=== PATIENT | male | born 1960 | race Caucasian/White ===

== ENCOUNTER 2019-12-23 11:56 | Emergency (ER) | payer OTHER, SELFPAY ==
--- NOTE | ~2019-12-23 | XR_ITS ---
EXAMINATION: XR foot RT min 3V DATE: 12/23/2019 12:54 INDICATION: Right foot pain, initial encounter TECHNIQUE: Dorsoplantar, lateral, and 2 oblique views of the right foot were obtained. COMPARISON: None. FINDINGS: There is an acute, traumatic, likely open, oblique intra-articular fracture at the medial b ase of the first distal phalanx. A small heterotopic ossification is seen dorsal to the distal aspect first proximal phalanx. No definite additional acute osseous abnormality is identified. There is mod erate osteoarthritis of the midfoot and in multiple interphalangeal joints. IMPRESSION: 1. Acute, likely open intra-articular fracture at the base of the first distal phalanx. 2. Possible chip fracture dorsal to the distal aspect of the first proximal phalanx. Reviewed, dictated and finalized at location A. [employer]ODU[employer] SALES REPRESENTATIVE IMPRESSION: 1. Acute, likely open intra-articular fracture at the base of the first distal phalanx. 2. Possible chip fracture dorsal to the distal aspect of the first proximal pha lanx.
--- NOTE | 2019-12-23 12:00 | ED.GENADULT ---
HPI - General Adult General Chief complaint: Extremity Injury, Lower Stated complaint: R TOE INJURY Time Seen by Provider: 12/23/19 12:42 Source: patient Mode of arrival: ambulatory Limitations: no limitations History of Present Illness HPI narrative: 59-year-old male patient presents to the [facility] with complaints of right toe pain for the past month. Patient states that he did hit his right great toe about a month ago when he was wearing slides thinks he might of broken it at that time but states that he does not have very good feeling to his feet and has not had any pain. Patient states this past weekend is gotten red as well as swollen. But continues not to have any pain. Denies taking anything for his symptoms. Patient does have history of hypertension which she is treated for but denies being treated for any hyperglycemia. Related Data Allergies Allergy/AdvReac Type Severity Reaction Status Date / Time No Known Allergies Allergy Verified 12/23/19 12:25 Review of Systems Review of Systems: Narrative: CONSTITUTIONAL: Denies fever, chills, or sweats. EYES: Denies visual changes, redness, or discharge. ENT: Denies rhinorrhea, congestion, sore throat, or otalgia. CARDIOVASCULAR: Denies chest pain, palpitations, or edema. RESPIRATORY: Denies cough or dyspnea. GASTROINTESTINAL: Denies abdominal pain, nausea, vomiting, or diarrhea. GENITOURINARY: Denies dysuria or hematuria. SKIN: Denies rash or itching. MUSCULOSKELETAL: Denies back pain, joint pain, or myalgia. Positive swelling and redness to right great toe x1 week NEUROLOGIC: Denies headache, numbness, or weakness. PSYCHIATRIC: Denies anxiety or depression. [facility] Past Medical History Medical History (Updated 12/23/19 @ 13:25 by WICHO Douglass) Hypertension Neuropathy Family History Family History Father Family history of lymphoma, Onset Age: 35 Other Family history of glaucoma Family history of hypercholesterolemia Hypertension Social History Social History Smoking status: Never smoker Alcohol intake: never Comments 9 pounds Exam Narrative: Exam Narrative: GENERAL: Well-appearing, well-nourished, and in no acute distress. HEAD: Normocephalic, atraumatic. EYES: PERRLA and EOMI. ENT: Nares clear, no rhinorrhea or epistaxis. Mucous membranes moist. NECK: Supple. No lymphadenopathy CHEST: Clear to auscultation. No respiratory distress. HEART: Regular rate and rhythm. No murmur heard. Normal peripheral pulses. ABDOMEN: Soft, nontender, nondistended, normal active bowel sounds. EXTREMITIES: Patient able to bear weight and ambulate without pain. Patient does have significant swelling to the right great toe with erythema present it does appear that there is some erythema to the distal portion of the second toe with some swelling. The R foot is without obvious asymmetry or deformity when compared to the L foot. No bony step-off, nontender to palpation over the toes, midfoot or hindfoot or sole. Normal plantar/dorsiflexion, inversion/eversion. Distal motor and neurovascular status are intact SKIN: Warm, dry, no rash. NEURO: No focal deficits. Alert and oriented x3. Course Reevaluation(s) Reevaluation #1: Reevaluated patient after x-ray resulted. Discussed with him that he does have 2 separate fractures to that great toe. Discussed with him that it does not appear that it is healing well and therefore we are going to refer him to orthopedic surgery. Discussed with patient we will go ahead and put him in an Ortho shoe and I am also going to prescribe him some antibiotics to decrease risk of worsening infection especially since he is now having swelling and redness to the area. Discussed with him he will need to call the orthopedic surgery office on Wednesday to schedule appointment for follow-up. Patient verbalized understanding rafiq
[2019-12-23 12:21] VITALS: BP 191/82; PULSE 73; RESP 16; TEMP 36.5; O2SAT 97
== END 2019-12-23 13:45 | disposition home or self-care (01) ==
PROVIDERS: Emergency Provider Nurse Practitioner Family; PCP Family Medicine
DX: S92.414A Nondisplaced fracture of proximal phalanx of right great toe, initial encounter for closed fracture (principal); X58.XXXA Exposure to other specified factors, initial encounter; I10 Essential (primary) hypertension; G62.9 Polyneuropathy, unspecified
CPT/HCPCS: 73630; 99214; G0463

== ENCOUNTER 2023-01-24 08:20 | Emergency (ER) | payer OTHER, SELFPAY ==
--- NOTE | ~2023-01-24 | XR_ITS ---
EXAMINATION: XR ankle RT min 3V INDICATION: Right ankle pain TECHNIQUE: Four views of the right ankle are obtained. COMPARISON: None available FINDINGS: There is an oblique, nondisplaced fracture of the distal tibia extending to the tibiotalar joint. No additional fracture is identified. There is soft tissue swelling of ankle. There is moderat e osteoarthritis of the midfoot. IMPRESSION: 1. Oblique nondisplaced fracture of the distal tibia extending to the tibiotalar joint. Reviewed, dictated and finalized at location F. PROJECT MANAGER IMPRESSION: 1. Oblique nondisplaced fracture of the distal tibia extending to the tibiotala r joint.
[2023-01-24 08:26] VITALS: BP 143/84; PULSE 86; RESP 16; TEMP 36.6; O2SAT 97
--- NOTE | 2023-01-24 08:57 | ED.LOWEXIN ---
HPI - Extremity Injury (Lower) General Chief Complaint: Extremity Injury, Lower Stated Complaint: Sprained Ankle Time Seen by Provider: 01/24/23 08:42 Source: patient and RN notes reviewed Mode of arrival: ambulatory Limitations: no limitations History of Present Illness HPI Narrative: Patient presents today complaining of an injury to his right ankle that was sustained approximately 3 weeks ago when he misstepped on to a retaining wall. States he has not had much pain since the injury until yesterday when he was walking through [employer]. Pain yesterday was a 7/10, but today he rates his pain 2/10. Patient has significant idiopathic neuropathy of his ankles and feet. He has been taking ibuprofen with some relief. Related Data Allergies Allergy/AdvReac Type Severity Reaction Status Date / Time No Known Allergies Allergy Verified 12/04/22 15:14 Review of Systems Review of Systems: CONSTITUTIONAL: Denies body aches, fever, chills, or sweats. EYES: Denies visual changes, redness, or discharge. ENT: Denies rhinorrhea, congestion, sore throat, or otalgia. CARDIOVASCULAR: Denies chest pain, palpitations, or edema. RESPIRATORY: Denies cough or dyspnea. GASTROINTESTINAL: Denies abdominal pain, nausea, vomiting, or diarrhea. GENITOURINARY: Denies dysuria or hematuria. SKIN: Denies rash, itching, or wounds. MUSCULOSKELETAL: Denies back pain, myalgia.+ right ankle pain and swelling NEUROLOGIC: Denies headache, numbness, tingling, or weakness. PSYCH: Denies depression or anxiety. [facility] Past Medical History Medical History Diarrhea Erectile dysfunction Hammertoe of right foot Right 4th toe Hypertension Mixed hyperlipidemia Nausea & vomiting Neuropathy Peripheral neuropathy, idiopathic Prediabetes Seasonal allergies Toe ulcer, right Family History Family History Father Family history of lymphoma, Onset Age: 35 Other Family history of glaucoma Family history of hypercholesterolemia Hypertension Social History Social History Smoking status: Never smoker Alcohol intake: never Lack of Transportation: No Lack of Food: Never True Current Housing: I Have Housing Concerned About Future Housing: No Difficulty Paying Gas/Electric Bills: No Difficulty Paying for Meds: No Currently Unemployed: No Education: Master's Degree or Higher Difficulty w/ Childcare or Family Care: No Comments At time of signature, I have reviewed and agree with nursing past medical, surgical, social and family history unless otherwise noted. Please see nursing chart for further information. There is no relevant family history pertinent to the presenting complaint Exam Narrative: GENERAL: Well-appearing, well-nourished, and in no acute distress. HEAD: Normocephalic, atraumatic. EYES: EOMI. No redness or drainage. Conjunctivae normal. ENT: Mucous membranes pink and moist. NECK: Normal AROM. CHEST: No respiratory distress. EXTREMITIES: Right ankle: Mild to moderate swelling about the ankle. Patient has significant numbness of the foot and ankle, but can feel some pressure to the lateral malleolus and Achilles tendon, but no tenderness. Capillary refill normal. Pedal pulse normal. Full range of motion of the toes and ankle without pain. Color normal. SKIN: Warm, dry, no rash. Capillary refill normal. Normal skin turgor. NEURO: No focal deficits. Alert and oriented x3. Gait steady. PSYCH: Normal affect. No signs of depression or anxiety. Course Course Level of Care: Express Care Visit Vital Signs Vital signs: Vital Signs Temperature 97.8 F 01/24/23 08:26 Pulse Rate 86 01/24/23 08:26 Respiratory Rate 16 01/24/23 08:26 Blood Pressure 143/84 H 01/24/23 08:26 Pulse Oximetry 97 01/24/23 08:2
== END 2023-01-24 09:24 | disposition home or self-care (01) ==
PROVIDERS: Emergency Provider Nurse Practitioner; PCP Family Medicine
DX: S82.234A Nondisplaced oblique fracture of shaft of right tibia, initial encounter for closed fracture (principal); X50.9XXA Other and unspecified overexertion or strenuous movements or postures, initial encounter; I10 Essential (primary) hypertension; E78.2 Mixed hyperlipidemia; G60.9 Hereditary and idiopathic neuropathy, unspecified; R73.03 Prediabetes
CPT/HCPCS: 29515; 73610; 99214; G0463

== ENCOUNTER 2023-02-10 20:48 | Inpatient (IN) | payer OTHER, SELFPAY ==
[2023-02-10] VITALS (10 sets, daily range): BP systolic 99–111; BP diastolic 51–59; PULSE 72–89; RESP 16–20; TEMP 36.4; O2SAT 96–98
--- NOTE | ~2023-02-10 | CT_ITS ---
EXAMINATION: CT ankle RT wo con DATE: 02/11/2023 02:50 INDICATION: Right ankle wound. TECHNIQUE: Computed tomography (CT) of the right ankle was performed without intravenous contrast. Au tomated exposure control and iterative reconstruction technique were employed. The dose-length produc t was 460.26 mGy-cm. COMPARISON: Right ankle radiographs 02/10/2023 FINDINGS: There is a comminuted fracture of distal tibia with impaction. There is splaying of fractur e fragments at the tibial plafond. Nonbridging callus formation is noted. There are impaction fractur e deformities of the talar dome. There is mild osteoarthritis of many of the midfoot joints. There is severe osteoarthritis of medial naviculocuneiform joint. There are dystrophic calcifications around the ankle. There is some areas of soft tissue gas anteriorly and posteriorly. There is widespread sub cutaneous edema. IMPRESSION: 1. Displaced comminuted fracture of distal tibia. 2. Impaction fracture deformities of the talar dome. 3. Foci of soft tissue gas anteriorly and posteriorly. These findings could have been introduced thro ugh a skin defect. Correlate with physical exam. Correlate clinically for necrotizing fasciitis. I di scussed this finding with Dr. Leach. Reviewed, dictated and finalized at location E. TRONICS TESTER IMPRESSION: 1. Displaced comminuted fracture of distal tibia. 2. Impaction fracture deformities of the talar dome. 3. Foci of soft tissue gas anteriorly and posteriorly. These findings could hav e been introduced through a skin defect. Correlate with physical exam. Correlat e clinically for necrotizing fasciitis. I discussed this finding with Dr. Anny carrizales.
--- NOTE | ~2023-02-10 | XR_ITS ---
EXAM: XR ankle RT min 3V DATE: 02/10/2023 23:48 HISTORY: wound to lateral malleoli, recent fx . COMPARISON: 01/24/2023. FINDINGS: Comminuted distal tibial fracture with significant displacement of the dominant anterior a nd posterior fragments, articular surface disruption, and impaction. The oblique anterior tibial comp onent was noted previously, but is more displaced. The posterior component appears to have occurred i n the interval. Widening of the syndesmosis. Scattered dystrophic calcification in the lateral gutter and lateral to the lateral malleolus. Soft tissue defect over the lateral malleolus. Soft tissue swe lling about the ankle. Scattered foci of subcutaneous gas. IMPRESSION: Comminuted, impacted, distal right tibial fracture involving the tibial plafond, with significant art icular surface disruption (high-grade Pilon fracture). Soft tissue defect over the lateral malleolus, with scattered areas of subcutaneous gas raising drew rn for cellulitis and/or an open type fracture. No definite radiographic evidence of osteomyelitis. Reviewed, dictated and finalized at location K. [employer] SERV[employer] CORRESPONDENCE CLERK IMPRESSION: Comminuted, impacted, distal right tibial fracture involving the tibial plafond , with significant articular surface disruption (high-grade Pilon fracture). Soft tissue defect over the lateral malleolus, with scattered areas of subcutan eous gas raising concern for cellulitis and/or an open type fracture. No defini te radiographic evidence of osteomyelitis.
--- NOTE | 2023-02-10 21:12 | ECG_ITS ---
Measurements Intervals [place] Rate: 72 P: 5 AR: 174 QRS: -18 QRSD: 102 T: 26 QT: 337 QTc: 369 Interpretive Statements SINUS RHYTHM WITH SINUS ARRHYTHMIA LOW QRS VOLTAGE IN PRECORDIAL LEADS [QRS DEFLECTION < 1.0 mV IN CHEST LEADS] NO PREVIOUS ECG AVAILABLE FOR COMPARISON Electronically Signed On 02-11-2023 9:13:05 [employer]OVING CARRIER by Arthur Gonzalez M.D.
[2023-02-10 21:33] LABS: Basophils Percent Auto 0.2 % (0.2-1.2); Eosinophils Percent Auto 0.3 % (0-4.4); Hematocrit 32.7 % (42.0-52.0); Hemoglobin 10.8 g/dL (14.0-18.0); Immature Granulocyte Absolute 0.14 K/mm3 (0.00-0.031); Lymphocytes Absolute Auto 0.74 K/mm3 (0.9-3.2); Lymphocytes Percent Auto 5.4 % (18.3-44.2); Mean Corpuscular Hemoglobin 29.7 pg (26-34); Mean Corpuscular Volume 89.8 fl (80-100); Mean Platelet Volume 9.7 fl (7.4-10.4); Monocytes Absolute Auto 0.9 K/mm3 (0.1-0.6); Monocytes Percent Auto 6.2 % (2.6-8.5); Neutrophils Percent Auto 86.9 % (45.5-73.1); Platelet Count Result 303 k/mm3 (150-375); Red Blood Count 3.64 M/mm3 (4.6-6.20); Red Cell Distribution Width 14.1 % (11.5-14.5); White Blood Count 13.8 K/mm3 (4.5-10.0)
[2023-02-10 21:51] LABS: Alanine Aminotransferase 20 U/L (6-50); Alkaline Phosphatase 111 U/L (38-126); Anion Gap 15 mmol/L (8-16); Aspartate Amino Transferase 21 U/L (17-59); Bilirubin,Total 0.6 mg/dL (0.2-1.3); Blood Urea Nitrogen > 120 mg/dL (9-20); Calcium 11.4 mg/dL (8.4-10.2); Carbon Dioxide 13 mmol/L (22-30); Chloride 100 mmol/L (98-107); Estimated Glomerular Filt Rate 13; Glucose 188 mg/dL (65-110); Potassium 7.1 mmol/L (3.4-5.0); Sodium 128 mmol/L (137-145)
[2023-02-10 22:15] LABS: Erythrocyte Sedimentation Rate > 140 mm/hr (0-20)
[2023-02-10] MEDS: CALCIUM GLUC 1,000 MG/NS 50 ML 1,000 MG/50 ML BAG 100 MG IVPB (23:47)
[2023-02-10] MEDS: SODIUM ZIRCONIUM CYCLOSILICATE 10 GM POWD.PACK PO (23:50)
[2023-02-10 23:56] LABS: Magnesium 2.5 mg/dL (1.6-2.3)
[2023-02-10 23:58] LABS: Hemoglobin A1C 7.3 % (<5.7)
[2023-02-11] VITALS (57 sets, daily range): BP systolic 90–121; BP diastolic 33–82; PULSE 65–96; RESP 11–20; TEMP 36.1–36.3; O2SAT 92–100; BMI 39.5
[2023-02-11] MEDS: INSULIN HUMAN REGULAR (*BKC) 100 UNITS/ML 10 UNITS IV PUSH ×2 (00:11→03:40)
[2023-02-11] MEDS: SODIUM BICARBONATE 8.4% 50 MEQ/50 ML SYRINGE IV PUSH (00:12)
[2023-02-11] MEDS: SODIUM CHLORIDE 0.9% IV 1,000 ML 999 ML IV CONT ×3 (00:14→16:03)
[2023-02-11 00:20] LABS: CRP 41.6 mg/dL (<1.0)
[2023-02-11 00:23] LABS: Alveolar/Arterial O2 Gradient 12.8 mmHg; Base Excess ABG -8.3 mEq/l (+/-2.0); Carboxyhemoglobin 0.3 % THb (0-2.0); Fractional Inspired Oxygen 21 %; HCO3 ABG 15.2 mEq/l (22.0-26.0); Methemoglobin ABG 0.3 %THb (0-1.5); Oxygen Content ABG 14.6 %vol (16.0-22.0); Oxyhemoglobin 96.5 % THb (90.0-100.0); PCO2 ABG 25.2 mmHg (35.0-45.0); PO2 ABG 106.8 mmHg (80.0-100.0); PO2 FiO2 Ratio Arterial Blood 5.09 %; Reduced Hemoglobin 2.9 %THb (0-5.0); Site Drawn RIGHT BRACHIAL; Total Hemoglobin 10.6 g/dL (12.0-18.0); pH ABG 7.397 (7.350-7.450)
[2023-02-11 00:24] LABS: Device ROOM AIR
[2023-02-11] MEDS: CEFEPIME 2 GM/NS 50 ML 2 GM/50 ML BAG IVPB (00:36)
--- NOTE | 2023-02-11 00:36 | ED.LOWEXIN ---
HPI - Extremity Injury (Lower) General Chief Complaint: Extremity Injury, Lower Stated Complaint: R. leg pain Time Seen by Provider: 02/10/23 23:01 Source: patient and old records reviewed Mode of arrival: ambulatory Limitations: no limitations History of Present Illness HPI Narrative: Patient is a 62-year-old male who presents to the ED with concern for right ankle wound. Patient reports he fractured his ankle before and was seen by Dr. Lopes this month. He has been wearing an ankle walking boot. Surgical repair was declined per records. Patient states he began noticing a wound to his right lateral malleolus on Wednesday from where the boot was rubbing against his skin. He has been bandaging this. Tonight when went to change bandage, she noticed purulent drainage from the wound. Then prompted here for further evaluation. Patient is a diabetic. Patient denies recent fevers. He does admit that he has not been feeling well over the last several days. Had an episode of emesis after eating dinner on Wednesday and states he is not ate or drank much since then. States he has been laying in bed most of the day. C/o mild dizziness/lightheadedness. Denies current nausea. Denies abdominal pain. Denies recent cough or cold symptoms. Related Data Allergies Allergy/AdvReac Type Severity Reaction Status Date / Time No Known Allergies Allergy Verified 02/10/23 21:06 Review of Systems Review of Systems: CONSTITUTIONAL: Denies fever, chills, or sweats. CARDIOVASCULAR: Denies chest pain. RESPIRATORY: Denies dyspnea. GASTROINTESTINAL: See HPI SKIN: See HPI MUSCULOSKELETAL: See HPI NEUROLOGIC: See HPI All systems reviewed & are unremarkable except as noted in HPI and below PMFSH Past Medical History Medical History Closed right ankle fracture Diarrhea Erectile dysfunction Hammertoe of right foot Right 4th toe HTN (hypertension), benign Hypertension Mixed hyperlipidemia Nausea & vomiting Neuropathy Obesity Peripheral neuropathy, idiopathic Pilon fracture of right tibia Prediabetes Seasonal allergies Toe ulcer, right Family History Family History Father Family history of lymphoma, Onset Age: 35 Other Family history of glaucoma Family history of hypercholesterolemia Hypertension Social History Social History Smoking status: Never smoker Alcohol intake: never Lack of Transportation: No Lack of Food: Never True Current Housing: I Have Housing Concerned About Future Housing: No Difficulty Paying Gas/Electric Bills: No Difficulty Paying for Meds: No Currently Unemployed: No Education: Master's Degree or Higher Difficulty w/ Childcare or Family Care: No Exam Narrative: GENERAL: Mildly ill appearing, obese, non-toxic, in no acute distress. HEAD: Normocephalic, atraumatic. ENT: MMs dry. RESPIRATORY: Airway patent, respirations nonlabored. Clear to auscultation bilaterally, no rales, rhonchi, wheezing. CARDIOVASCULAR: Regular rate and rhythm without murmurs, rubs, or gallops. Difficult to palpate DP pulse on R, able to identify with bedside Doppler. MUSCULOSKELETAL: Limited ROM of R ankle d/t pain. R ankle joint diffusely swollen extending into lower leg, mildly erythematous vs ecchymotic, slightly warm. Large ulcer-like wound to R lateral malleoli with serous yellow malodorous material draining. No definitive abscess. No palpable fluctuance. No bullae or blistering. Decreased sensation throughout right foot, which patient reports is chronic related to neuropathy. SKIN: Warm, dry, normal color. NEURO: A&O X3. Speech clear. Cranial nerves II-XII grossly intact. No ataxic movements. PSYCHIATRIC: Normal mood/affect. Normal interaction. Course Vital Signs Vital signs: Vital Signs
[2023-02-11 00:38] LABS: Estimated Glomerular Filt Rate 12
[2023-02-11 01:01] LABS: Influenza A QL RT-PCR Negative (Negative); Influenza B QL RT-PCR Negative (Negative); RSV RNA, RT-PCR Negative (Negative); SARS-CoV-2 RNA PCR Negative (Negative)
[2023-02-11] MEDS: metroNIDAZOLE 500 MG/ISO 100ML 500 MG/100 ML BAG 100 MG IVPB ×3 (01:14→14:13)
--- NOTE | 2023-02-11 01:26 | PC.NURSE ---
1 unit of insulin not given. Override due to incorrect medication in the incorrect location in the pyxis.
[2023-02-11 01:58] LABS: Glucose Point of Care 146 mg/dl (65-105)
[2023-02-11 02:22] LABS: Anion Gap 13 mmol/L (8-16); Blood Urea Nitrogen > 120 mg/dL (9-20); Calcium 10.8 mg/dL (8.4-10.2); Carbon Dioxide 13 mmol/L (22-30); Chloride 104 mmol/L (98-107); Estimated Glomerular Filt Rate 11; Glucose 154 mg/dL (65-110); Potassium 6.2 mmol/L (3.4-5.0); Sodium 130 mmol/L (137-145)
[2023-02-11] MEDS: SODIUM BICARBONATE 8.4% 150 MEQ in WATER, STERILE FOR INJECTION 950 ML 100 MEQ IV CONT ×2 (03:35→16:20)
[2023-02-11] MEDS: DEXTROSE 50% 25 GM/50 ML SYRINGE IV PUSH ×2 (03:38)
[2023-02-11] MEDS: CALCIUM GLUCONATE 1,000 MG/10 ML VIAL 1000 MG IV PUSH (03:41)
[2023-02-11] MEDS: SODIUM ZIRCONIUM CYCLOSILICATE 10 GM POWD.PACK PO ×2 (03:41→17:24)
[2023-02-11] MEDS: VANCOMYCIN 2,000 MG/NS 500 ML 2,000 MG/500 ML BAG 250 MG IVPB (03:48)
[2023-02-11 04:17] LABS: Glucose Point of Care 209 mg/dl (65-105)
[2023-02-11 07:07] LABS: Basophils Percent Auto 0.2 % (0.2-1.2); Eosinophils Absolute Auto 0.1 K/mm3 (0-0.3); Eosinophils Percent Auto 0.9 % (0-4.4); Hematocrit 29.1 % (42.0-52.0); Hemoglobin 9.1 g/dL (14.0-18.0); Immature Granulocyte Absolute 0.13 K/mm3 (0.00-0.031); Immature Granulocyte Percent A 1.1 % (0-0.5); Lymphocytes Absolute Auto 0.98 K/mm3 (0.9-3.2); Lymphocytes Percent Auto 8.3 % (18.3-44.2); Mean Corpuscular HGB Conc 31.3 g/dl (32-36); Mean Corpuscular Hemoglobin 29.6 pg (26-34); Mean Corpuscular Volume 94.8 fl (80-100); Mean Platelet Volume 9.8 fl (7.4-10.4); Monocytes Absolute Auto 1.1 K/mm3 (0.1-0.6); Monocytes Percent Auto 8.9 % (2.6-8.5); Neutrophils Absolute Auto 9.5 K/mm3 (1.3-6.7); Neutrophils Percent Auto 80.6 % (45.5-73.1); Platelet Count Result 242 k/mm3 (150-375); Red Blood Count 3.07 M/mm3 (4.6-6.20); Red Cell Distribution Width 14.3 % (11.5-14.5); White Blood Count 11.8 K/mm3 (4.5-10.0)
[2023-02-11 07:30] LABS: Alanine Aminotransferase 17 U/L (6-50); Albumin Level 3.3 g/dL (3.5-5.1); Alkaline Phosphatase 88 U/L (38-126); Anion Gap 15 mmol/L (8-16); Aspartate Amino Transferase 23 U/L (17-59); Bilirubin,Total 0.5 mg/dL (0.2-1.3); Calcium 10.4 mg/dL (8.4-10.2); Carbon Dioxide 10 mmol/L (22-30); Chloride 105 mmol/L (98-107); Estimated CRCL calculation 21 ml/min; Estimated Glomerular Filt Rate 13; Glucose 142 mg/dL (65-110); Magnesium 2.3 mg/dL (1.6-2.3); Phosphorus 7.3 mg/dL (2.5-4.5); Potassium 5.7 mmol/L (3.4-5.0); Sodium 130 mmol/L (137-145)
[2023-02-11 08:20] LABS: Procalcitonin 2.6 ng/mL
--- NOTE | 2023-02-11 09:00 | ADMGEN ---
This patient, Mk Kaba Jr., was admitted to IMU Room 214-01. Patient/family oriented to hospital policies and general routines including ID bracelet, bed and alarms, visiting hours, pain management, procedures, bathroom and other care routines, personal items, smoking policy, room service/diet, and visiting hours. Information on how to activate the Rapid Response Team has been discussed. Patient/Family are encouraged to report perceived risks to care and to ask questions if they do not understand what they are told or what they should do.
[2023-02-11 10:02] LABS: Blood Urea Nitrogen 136 mg/dL (9-20)
--- NOTE | 2023-02-11 11:56 | PCWOUND ---
WOCN NOTE Received consult to assess wound on right ankle. Orthopedic surgeon also consulted for same wound. Spoke with Ellen SANDS for Dr. Lopes who was involved in case initially. Received direction to hold off on consult, they will notify wound care if wound care assessment is needed.
--- NOTE | 2023-02-11 12:03 | PM.CNNEP ---
Assessment and Plan Assessment and plan (1) Acute renal failure: Qualifiers: Acute renal failure type: unspecified Qualified Code(s): N17.9 - Acute kidney failure, unspecified Code(s): N17.9 - Acute kidney failure, unspecified Status: Acute Assessment and Plan: The patient has acute kidney injury. His creatinine was normal before this. He had normal urine microalbumin in November. Most likely patient's kidney injury is due to hypotension, infection, ibuprofen and dehydration. He did continue to take his medications there are other things that could cause this as well. Glomerulonephritis, interstitial nephritis are possibilities but not likely in this clinical scenario. Rhabdomyolysis is always a possibility as is obstruction. will check urine electrolytes, CPK, and renal ultrasound. Will continue with the IV fluids ordered. (2) Hyperkalemia: Code(s): E87.5 - Hyperkalemia Status: Acute Assessment and Plan: the patient's potassium was high. this is due to the renal failure, ibuprofen, and lisinopril. He is off those to medication and he is getting medication to bring the potassium down. (3) Open wound of right ankle: Qualifiers: Encounter type: initial encounter Qualified Code(s): S91.001A - Unspecified open wound, right ankle, initial encounter Code(s): S91.001A - Unspecified open wound, right ankle, initial encounter Status: Acute Assessment and Plan: Ortho will be consulted. Blood cultures are done. He is getting antibiotics. (4) Hyponatremia: Code(s): E87.1 - Hypo-osmolality and hyponatremia Status: Acute Assessment and Plan: The patient has low sodium. Is most likely due to the renal failure. It was normal before all of this. (5) Prediabetes: Code(s): R73.03 - Prediabetes Status: Acute Assessment and Plan: The patient was on metformin. Likely is lactic acid is okay (6) HTN (hypertension), benign: Code(s): I10 - Essential (primary) hypertension Status: Acute Assessment and Plan: blood pressure has been high for a long time. He got dehydrated now has low blood pressure so his antihypertensives are on hold. (7) Mixed hyperlipidemia: Code(s): E78.2 - Mixed hyperlipidemia Status: Acute Assessment and Plan: He is on a tore the statin home (8) Metabolic acidosis: Code(s): E87.20 - Acidosis, unspecified Status: Acute Assessment and Plan: the patient has metabolic acidosis. His anion gap is 15. This is probably a little high for him. Most likely the anion gap is due to uremic toxins. He is a getting bicarb drip for this. History of Present Illness Reason for Consult Consult date: 02/11/23 Chief Complaint Chief complaint: ARF,Hyperkalemia,Hyponatremis,DM Ulcer R Ankle,FX History of Present Illness Narrative: Emir is a very pleasant 62-year-old male who has multiple medical problems including pre diabetes, hypertension, hyperlipidemia, high body mass index, seasonal allergies, and hammertoe of the right 4th toe. The patient said that he stumbled and broke his ankle. He went to see Dr. Lopes. He was offered surgery but elected to be conservative and so he was placed in a boot. The patient has neuropathy and so has no feeling in his foot and eventually the boot rubbed a sore. He was dressing this sore daily. Last Wednesday the patient had chills and some nausea and vomiting. Wednesday and Wednesday he was sleepy all day and did not eat much. Wednesday his asked to look at the wound. At he said no but then he agreed and there was pus there so brought him to the emergency room. Patient has never had kidney disease before. No bloody urine foamy urine kidney stones bladder infections or painful urine. He was taking ibuprofen every 4hours as needed for his ankle. In the ER he was evalu
[2023-02-11 12:40] LABS: Creatine Kinase 66 U/L (55-170)
--- NOTE | 2023-02-11 13:13 | PM.CNOR ---
Assessment and Plan Assessment and plan (1) Pilon fracture of right tibia: Qualifiers: Encounter type: sequela Fracture type: closed Fracture alignment: displaced Qualified Code(s): S82.871S - Displaced pilon fracture of right tibia, sequela Code(s): S82.871A - Displaced pilon fracture of right tibia, initial encounter for closed fracture Status: Acute Assessment and Plan: History, exam, previous radiographs, current radiographs and CT scan reviewed with the patient and at bedside. These radiographic findings were reviewed in depth with my attending physician, Dr. Solo as well. Dr. Lpoes is currently unavailable for consult. On exam, patient has a red and swollen right ankle with a wound on the lateral malleolus with bone fragments expelling from wound as well as copious amounts of purulent drainage. Blistering of the lateral and anterior ankle noted as well. Erythema throughout the entire ankle noted. Patient has minimal pain due to history of neuropathy. Crepitus noted. Discussed condition, nature, etiology and course of natural history. Fracture discussed. Patient endorses that he has been bearing full weight on the right ankle since being fitted with the fracture boot. He has been noncompliant with TTWB. Hospitalist service contacted to discuss case given patient's acute kidney injury, elevated WBC count, elevated ESR/CRP, significant purulent drainage, unstable/open fracture and concern for necrotizing fasciitis as evidence by radiographic findings. We have recommended the patient be transferred to a tertiary care center for higher level of care and orthopedic surgical intervention. Patient will likely require plastic surgery and ID specialist as well. Upon request of the medicine team, we have personally contacted [facility] and spoke to the transfer center. They have requested discussion with the medicine team. Contact information provided to Dr. Davis to discuss with [facility]. Currently awaiting hospital transfer approval. Available for orthopedic discussion if further requested by the tertiary care center. Wound cleansed with sterile water and covered with 4x4s and ABD, wrapped with kerlex. Patient to be NWB of the RLE. Continue IV antibiotics under the direction of the medicine team. (2) Acute renal failure: Qualifiers: Acute renal failure type: unspecified Qualified Code(s): N17.9 - Acute kidney failure, unspecified Code(s): N17.9 - Acute kidney failure, unspecified Status: Acute Assessment and Plan: Nephrology following. (3) Hyperkalemia: Code(s): E87.5 - Hyperkalemia Status: Acute Assessment and Plan: Improvement. (4) Open wound of right ankle: Qualifiers: Encounter type: initial encounter Qualified Code(s): S91.001A - Unspecified open wound, right ankle, initial encounter Code(s): S91.001A - Unspecified open wound, right ankle, initial encounter Status: Acute Assessment and Plan: Wound covered. Cultures pending. (5) Diabetes mellitus: Qualifiers: Diabetes mellitus complication detail: with foot ulcer Diabetes mellitus complication status: with skin complications Diabetes mellitus terminal make up operator insulin use: without senior living use Diabetes mellitus type: type 2 Qualified Code(s): E11.621 - Type 2 diabetes mellitus with foot ulcer; L97.509 - Non-pressure chronic ulcer of other part of unspecified foot with unspecified severity Code(s): E11.9 - Type 2 diabetes mellitus without complications Status: Acute History of Present Illness HPI Consult date: 02/11/23 Chief complaint: ARF,Hyperkalemia,Hyponatremis,DM Ulcer R Ankle,FX Narrative: 62-year-old male who originally sustained an injury to the right ankle around January 03 after stepping into a retaining wall. He did not seek treatment until January 24 when he was seen at an urgent care with [facility]
--- NOTE | 2023-02-11 14:00 | PM.IMHP ---
H&P: HPI History of Present Illness Date/Time: 02/11/23 14:00 Chief Complaint: Patient brought to the ER for evaluation for his worsening right ankle wound Narrative: He is a a pleasant morbidly obese gentleman with diabetic neuropathy and chronic medical issues who had fracture of his right ankle 4 weeks ago. He went to his medical doctor and advised surgery which he did not consider as he was not having any pain at that time. Over the last few weeks, he has been feeling tired and fatigued and saw the wound on the right ankle which is getting worse. He came to the ER for evaluation. Workup was done which showed findings consistent with sepsis, hyperkalemia and acute renal failure. Patient was aggressively treated with aggressive IV hydration and for potassium of 7.1 in the ER which is now 5.7. He has been started on IV bicarbonate drip and being admitted to IMU for tele monitoring, Nephrology follow-up, IV antibiotics and orthopedic consultation for his right ankle fracture. He complains of feeling weak, tired and fatigued with some fever rigor chills at times. Review of Systems Review of Systems: 14 systems were reviewed with pertinent positives and negatives per HPI. Except as documented in the HPI/progress notes, all other systems were reviewed and are negative. All systems reviewed & are unremarkable except as noted in HPI and below PMFSH Past Medical History Medical History Closed right ankle fracture Diarrhea Erectile dysfunction Hammertoe of right foot Right 4th toe HTN (hypertension), benign Hypertension Mixed hyperlipidemia Nausea & vomiting Neuropathy Obesity Peripheral neuropathy, idiopathic Pilon fracture of right tibia Prediabetes Seasonal allergies Toe ulcer, right Family History Family History Father Family history of lymphoma, Onset Age: 35 Other Family history of glaucoma Family history of hypercholesterolemia Hypertension Social History Social History Smoking status: Never smoker Alcohol intake: never Substance use: never Do You Feel Safe in your Home?: Yes Lack of Transportation: No Lack of Food: Never True Current Housing: I Have Housing Concerned About Future Housing: No Difficulty Paying Gas/Electric Bills: No Difficulty Paying for Meds: No Currently Unemployed: No Education: Don't Know Difficulty w/ Childcare or Family Care: No Spiritual care concerns: No Meds Home Medications and Allergies Home Medications Medication Instructions Recorded Confirmed Type metformin 500 mg tablet,extended 500 mg PO DAILY #90 tabs 02/10/22 02/11/23 Rx release 24hr (osmotic) spironolactone 50 mg tablet 50 mg PO BID #180 tabs 11/19/22 02/11/23 Rx atorvastatin 10 mg tablet (Lipitor) 10 mg PO QHS #90 tabs 12/30/22 02/11/23 Rx sertraline 100 mg tablet 100 mg PO DAILY #90 tabs 02/10/23 02/11/23 Rx lisinopril 10 1 tablet PO DAILY 02/11/23 02/11/23 History mg-hydrochlorothiazide 12.5 mg tablet nebivolol 20 mg tablet (Bystolic) 20 mg PO DAILY 02/11/23 02/11/23 History Allergies Allergy/AdvReac Type Severity Reaction Status Date / Time No Known Allergies Allergy Verified 02/10/23 21:06 Vital Signs Vital Signs - 24 hr 02/10/23 21:06 02/10/23 22:50 02/11/23 01:27 Temperature 36.4 C Pulse Rate 72 84 73 Respiratory Rate 16 20 18 Blood Pressure 99/51 L 111/59 L 111/80 Pulse Oximetry 98 96 97 Oxygen Delivery Room Air 02/10/23 22:40 02/10/23 22:49 02/10/23 23:00 Temperature Pulse Rate 80 86 87 Respiratory Rate 20 17 Blood Pressure 111/59 L Pulse Oximetry 97 Oxygen Delivery 02/10/23 23:01 02/10/23 23:15 02/10/23 23:30 Temperature Pulse Rate 89 89 76 Respiratory Rate Blood Pressure 101/55 L Pulse Oximetry 97 96 Oxygen Delivery 02/10/23 23:
[2023-02-11 14:13] LABS: Creatinine Urine 54.9 mg/dL; Total Protein Urine Random 36 mg/dL; Ur Ttl Prot Creatinine Ratio 0.66 mg/mg (0-0.20); Urea Random Urine 476 MG/DL
[2023-02-11] MEDS: ACETAMINOPHEN 325 MG TABLET 650 MG PO (14:14)
[2023-02-11 14:15] LABS: Appearance Urine Clear (Clear); Bacteria Urine None Seen /hpf; Bilirubin Urine Negative (Negative); Blood Urine Negative (Negative); Color Urine Yellow (Yellow); Glucose Urine UA Negative (Negative); Ketones Urine Negative (Negative); Leukocyte Esterase Ur Negative LEU/UL (NEGATIVE); Nitrate Urine Negative (Negative); Protein Urine Trace mg/dL (Negative); RBC Urine 0-2 /hpf (0-2); Sodium Urine Random 60 meq/L; Squamous Epithelial Cell Urine Occasional /hpf (Few); Urobilinogen Urine 0.2 mg/dL (<2.0); WBC Urine 0-5 /hpf (0-3); pH Urine 5.5 (5.0-9.0)
[2023-02-11 14:17] LABS: Add Urine Microscopic? YES
--- NOTE | 2023-02-11 14:52 | PM.TDS ---
Transfer Discharge Sum: Prov Provider Date of admission: 02/11/23 13:56 Primary care physician: Tong Mock MD Admitting clinician: Blanca Vee MD Attending physician on admission: Blanca Vee Consults: 02/11/23 Wound/ET Consult Routine Reason for Consult:: Weeping ankle ulcer with cellulitis. Associated with pressure from boot given for tibial fx. 02/11/23 03:39 Consult to Physician Routine Comment: Consulting Provider: Frederick Solo Reason for consultation: R ankle distal tibial fx, ulcerated wound R lateral malleoli Has provider been notified: Yes Consult to Physician Routine Comment: Consulting Provider: Jeremias Medina Reason for consultation: ARF, hyperkalemia, hyponatremia Has provider been notified: Yes Attending physician on discharge: Mukul Davis Discharging clinician: Mukul Davis Anticipated date of transfer: 02/11/23 Receiving physician/facility: DR. Tong Plummer, SICU at [place], [place] DS: Admitting Diagnosis Discharge Date 02/11/2023: Admitting Diagnosis Sepsis Open infected diabetic ulcer right ankle Acute renal failure Severe hyperkalemia DS: Discharge Diagnosis Discharge Diagnosis (1) Necrotizing fasciitis: Code(s): M72.6 - Necrotizing fasciitis Status: Acute (2) Sepsis: Code(s): A41.9 - Sepsis, unspecified organism Status: Acute (3) Obesity: Qualifiers: Obesity type: due to excess calories Obesity classification: adult class 3 (BMI >= 40) Serious obesity comorbidity presence: with serious comorbidity Body mass index: BMI 40.0-44.9 Qualified Code(s): E66.01 - Morbid (severe) obesity due to excess calories; Z68.41 - Body mass index [BMI]40.0-44.9, adult Code(s): E66.9 - Obesity, unspecified Status: Acute (4) Peripheral neuropathy, idiopathic: Code(s): G60.9 - Hereditary and idiopathic neuropathy, unspecified Status: Acute (5) HTN (hypertension), benign: Code(s): I10 - Essential (primary) hypertension Status: Acute (6) Mixed hyperlipidemia: Code(s): E78.2 - Mixed hyperlipidemia Status: Acute (7) Erectile dysfunction: Code(s): N52.9 - Male erectile dysfunction, unspecified Status: Acute (8) Adjustment disorder with anxious mood: Code(s): F43.22 - Adjustment disorder with anxiety Status: Acute (9) Pilon fracture of right tibia: Qualifiers: Encounter type: sequela Fracture type: closed Fracture alignment: displaced Qualified Code(s): S82.871S - Displaced pilon fracture of right tibia, sequela Code(s): S82.871A - Displaced pilon fracture of right tibia, initial encounter for closed fracture Status: Acute (10) Acute renal failure: Qualifiers: Acute renal failure type: unspecified Qualified Code(s): N17.9 - Acute kidney failure, unspecified Code(s): N17.9 - Acute kidney failure, unspecified Status: Acute (11) Hyperkalemia: Code(s): E87.5 - Hyperkalemia Status: Acute (12) Open wound of right ankle: Qualifiers: Encounter type: initial encounter Qualified Code(s): S91.001A - Unspecified open wound, right ankle, initial encounter Code(s): S91.001A - Unspecified open wound, right ankle, initial encounter Status: Acute (13) Hyponatremia: Code(s): E87.1 - Hypo-osmolality and hyponatremia Status: Acute (14) Diabetes mellitus: Qualifiers: Diabetes mellitus complication detail: with foot ulcer Diabetes mellitus complication status: with skin complications Diabetes mellitus fci insulin use: without intermission coordinator use Diabetes mellitus type: type 2 Qualified Code(s): E11.621 - Type 2 diabetes mellitus with foot ulcer; L97.509 - Non-pressure chronic ulcer of other part of unspecified foot with unspecified severity Code(s): E11.9 - Type 2 diabetes mellbridgette
[2023-02-11 15:07] LABS: Basophils Percent Auto 0.3 % (0.2-1.2); Eosinophils Absolute Auto 0.2 K/mm3 (0-0.3); Eosinophils Percent Auto 1.6 % (0-4.4); Hematocrit 28.2 % (42.0-52.0); Immature Granulocyte Absolute 0.08 K/mm3 (0.00-0.031); Immature Granulocyte Percent A 0.8 % (0-0.5); Lymphocytes Absolute Auto 0.78 K/mm3 (0.9-3.2); Lymphocytes Percent Auto 7.9 % (18.3-44.2); Mean Corpuscular HGB Conc 31.9 g/dl (32-36); Mean Corpuscular Hemoglobin 29.5 pg (26-34); Mean Corpuscular Volume 92.5 fl (80-100); Mean Platelet Volume 9.7 fl (7.4-10.4); Monocytes Absolute Auto 0.7 K/mm3 (0.1-0.6); Monocytes Percent Auto 7.4 % (2.6-8.5); Neutrophils Absolute Auto 8.1 K/mm3 (1.3-6.7); Platelet Count Result 238 k/mm3 (150-375); Red Blood Count 3.05 M/mm3 (4.6-6.20); Red Cell Distribution Width 14.4 % (11.5-14.5); White Blood Count 9.9 K/mm3 (4.5-10.0)
[2023-02-11 15:23] LABS: Alanine Aminotransferase 18 U/L (6-50); Albumin Level 3.4 g/dL (3.5-5.1); Alkaline Phosphatase 93 U/L (38-126); Anion Gap 16 mmol/L (8-16); Aspartate Amino Transferase 18 U/L (17-59); Bilirubin,Total 0.4 mg/dL (0.2-1.3); Calcium 10.3 mg/dL (8.4-10.2); Carbon Dioxide 13 mmol/L (22-30); Chloride 102 mmol/L (98-107); Estimated CRCL calculation 24 ml/min; Estimated Glomerular Filt Rate 14; Glucose 148 mg/dL (65-110); Potassium 5.7 mmol/L (3.4-5.0); Sodium 131 mmol/L (137-145)
[2023-02-11 16:25] LABS: Blood Urea Nitrogen 128 mg/dL (9-20)
== END 2023-02-11 17:40 | disposition short-term general hospital (02) | DRG 871 ==
LOC: ANHED 02-11 03:55 → ANHIMU 02-11 05:56
PROVIDERS: Emergency Medicine; Internal Medicine Nephrology; Admitting Provider General Practice; Emergency Provider Physician Assistant; PCP Family Medicine; Visit Provider Family Medicine
DX: A41.9 Sepsis, unspecified organism (principal); M72.6 Necrotizing fasciitis; S82.871B Displaced pilon fracture of right tibia, initial encounter for open fracture type I or II; N17.9 Acute kidney failure, unspecified; E87.1 Hypo-osmolality and hyponatremia; E87.20 Acidosis, unspecified; I10 Essential (primary) hypertension; E78.2 Mixed hyperlipidemia; E66.9 Obesity, unspecified; E11.42 Type 2 diabetes mellitus with diabetic polyneuropathy; E87.5 Hyperkalemia; Z20.822 Contact with and (suspected) exposure to COVID-19; Z91.199 Patient's noncompliance with other medical treatment and regimen due to unspecified reason
CPT/HCPCS: 36415; 36600; 73610; 73700; 80048; 80053; 81001; 82375; 82550; 82565; 82570; 82805; 82948; 83036; 83050; 83605; 83735; 84100; 84145; 84156; 84300; 84540; 85025; 85652; 86140; 87040; 87070; 87147; 87181; 87186; 87205; 87637; 93005; 96365; 96366; 96367; 96368; 96375; 96376; 99285; A9270; G0378; J0612; J0692; J1815; J1836; J3370; J7030

== ENCOUNTER 2023-04-17 18:52 | Emergency (ER) | payer OTHER, SELFPAY ==
[2023-04-17 18:58] VITALS: BP 128/77; PULSE 104; RESP 16; TEMP 36.4; O2SAT 97
--- NOTE | 2023-04-17 19:22 | ED.WOUNDLAC ---
HPI - Wound/Laceration General Chief Complaint: Wound/Laceration Stated Complaint: Leg Wound Time Seen by Provider: 04/17/23 19:12 Source: patient, family () and RN notes reviewed Mode of arrival: ambulatory Limitations: no limitations History of Present Illness HPI narrative: Patient presents today requesting wound check to his right BKA stump. He was in an office chair earlier tonight when he slipped and struck the new stump, opening the scabbed area, slightly more than normal and causing it to bleed. He has an appointment at the wound care clinic in [address] [facility] in [place]. states the wound has only opened appox 02/22 more than it had been, but they were alarmed with the blood. Related Data Home Medications Medication Instructions Recorded Confirmed lisinopril 10 1 tablet PO DAILY 02/11/23 04/17/23 mg-hydrochlorothiazide 12.5 mg tablet gabapentin 600 mg tablet 600 mg PO DIRECTED 03/08/23 04/17/23 methocarbamol 500 mg tablet 500 mg PO DIRECTED 03/08/23 04/17/23 Allergies Allergy/AdvReac Type Severity Reaction Status Date / Time No Known Allergies Allergy Verified 04/17/23 19:15 Review of Systems Review of Systems: CONSTITUTIONAL: Denies body aches, fever, chills, or sweats. EYES: Denies visual changes, redness, or discharge. ENT: Denies rhinorrhea, congestion, sore throat, or otalgia. CARDIOVASCULAR: Denies chest pain, palpitations, or edema. RESPIRATORY: Denies cough or dyspnea. GASTROINTESTINAL: Denies abdominal pain, nausea, vomiting, or diarrhea. GENITOURINARY: Denies dysuria or hematuria. SKIN: Denies rash, itching. Right leg wound MUSCULOSKELETAL: Denies back pain, joint pain, or myalgia. NEUROLOGIC: Denies headache, numbness, tingling, or weakness. PSYCH: Denies depression or anxiety. [facility] Past Medical History Medical History Closed right ankle fracture Diarrhea Erectile dysfunction Hammertoe of right foot Right 4th toe HTN (hypertension), benign Hypertension Mixed hyperlipidemia Nausea & vomiting Neuropathy Obesity Peripheral neuropathy, idiopathic Pilon fracture of right tibia Prediabetes Seasonal allergies Toe ulcer, right Family History Family History Father Family history of lymphoma, Onset Age: 35 Other Family history of glaucoma Family history of hypercholesterolemia Hypertension Social History Social History Smoking status: Never smoker Alcohol intake: never Substance use: never Do You Feel Safe in your Home?: Yes Lack of Transportation: No Lack of Food: Never True Current Housing: I Have Housing Concerned About Future Housing: No Difficulty Paying Gas/Electric Bills: No Difficulty Paying for Meds: No Currently Unemployed: No Education: Don't Know Difficulty w/ Childcare or Family Care: No Spiritual care concerns: No Comments At time of signature, I have reviewed and agree with nursing past medical, surgical, social and family history unless otherwise noted. Please see nursing chart for further information. There is no relevant family history pertinent to the presenting complaint Exam Narrative: GENERAL: Well-appearing, well-nourished, and in no acute distress. HEAD: Normocephalic, atraumatic. EYES: EOMI. No redness or drainage. Conjunctivae normal. ENT: Mucous membranes pink and moist. NECK: Normal AROM. CHEST: No respiratory distress. EXTREMITIES: Right BKA. Large incision from his amputation is still present. It has dehisced approximately 1 inch (not today). There is a moderate amount blood within the lateral half of the incision, but it has clotted. There is no active bleeding. No signs of infection noted. Wound appears very clean. SKIN: Warm, dry, no rash. Capillary refill normal. Normal skin turgor. NE
== END 2023-04-17 19:32 | disposition home or self-care (01) ==
PROVIDERS: Emergency Provider Nurse Practitioner; PCP Family Medicine
DX: T87.89 Other complications of amputation stump (principal); Z89.511 Acquired absence of right leg below knee; I10 Essential (primary) hypertension; E78.2 Mixed hyperlipidemia; G62.9 Polyneuropathy, unspecified; R73.03 Prediabetes; E66.9 Obesity, unspecified; Z68.34 Body mass index [BMI] 34.0-34.9, adult
CPT/HCPCS: 99213; G0463

== ENCOUNTER 2023-10-14 08:00 | Outpatient (RCR) | payer OTHER, SELFPAY ==
--- NOTE | 2023-09-06 09:53 | OPREHPOC ---
Outpatient Therapy Plan of Care This is a Multidisciplinary Plan of Care that may contain components documented by all disciplines (PT, OT, and ST.) PT Problem 1 PT Problem #1 Knowledge Deficit PT Goal 1 Goal Pt to be IND with issued HEP Target Visit 10 PT Problem 2 PT Problem #2 Impaired Gait PT Goal 1 Goal Pt to ambulate 150ft on level surface, IND with AD , to achieve household gait distances. Target Visit 10 PT Goal 2 Goal Pt to ambulate 50ft with min A Target Visit 10 PT Problem 3 PT Problem #3 Impaired Strength PT Goal 1 Goal Pt to demonstrate 15 straight leg raises to demonstrate quad control needed for ambulation. Target Visit 10 PT Goal 2 Goal Pt to be able to maintain natural hip/pelvis alignment with single leg stance. Target Visit 10 PT Problem 4 PT Problem #4 Impaired Functional Mobil PT Goal 1 Goal Pt to be able to ambulate a flight of stairs. Target Visit 10
--- NOTE | 2023-09-06 09:53 | PTOPEVAL1 ---
Assessment and note entered by Kelley Durand, PT, DPT Evaluation Information Assessment Status Evaluation Diagnosis R below knee amputation ICD-10 Condition Codes (PT) Difficulty Walking R26.2,R26.9,Weakness R53.1 Onset 02/12/23 Subjective Information Pt reports he has a R below the knee amputation on 02/12/23 d/t complications of diabetic neuropathy . He has started getting a prostatic from [facility] and should receive the device within the next device. He currently navigates with a knee scooter. 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 Reported Pain Level Pain Score 0: Self Report Assessment PT Clinical Summary Mk Turcios) presents to therapy today for his initial evaluation following a R BKA on 02/12/23. Today he demonstrates good skin/wound healing. He demonstrates decreased R hip and knee strength consistent with limited weight bearing. He will benefit from skilled therapy services to address strength and mobility deficits as well as gait training once he receives his new prosthesis. Plan of Care Interventions Check Out for Orthotic/Pr,Gait Training,Manual Therapy,Neuro Re-education,Patient/Caregiver Educati,Prosthetic Training,Therapeutic Activities ,Therapeutic Exercise,Self-Care/Home Management PT Services Indicated Yes Treatment Frequency and 2x/wk for 10 visits Duration These treatments will address the objective and functional deficits as defined above. The patient will be advanced safely and appropriately in order for the patient to progress towards his/her prior level of function. Additional exercises will be introduced and as well as a comprehensive home exercise program upon discharge, if needed, ?to ensure carryover of functional gains achieved in the clinic. This treatment plan has been reviewed and agreement upon by the patient.
--- NOTE | 2023-09-16 08:02 | PCPTNOTE ---
Patient called & cancelled scheduled appointment this date due to still not having his prosthesis.
--- NOTE | 2023-10-06 09:51 | PCPTNOTE ---
Patient was canceled 09/28/23 due to therapist out with illness.
--- NOTE | 2023-10-06 09:57 | PCPTNOTE ---
Patient was canceled 09/30/23 due to therapist out with illness.
--- NOTE | 2023-10-14 08:37 | PTOPDC ---
Assessment and note entered by Kelley Durand, PT, DPT Evaluation Information Assessment Status Discharge Diagnosis R below knee amputation ICD-10 Condition Codes (PT) Difficulty Walking R26.2,R26.9,Weakness R53.1 Onset 02/12/23 Subjective Information Pt states he is doing great. He states he has met all of the goals he has. Pt notes a small 1x1cm open sore along his incision that opened in the last 1-2 days. It is clean, dry, and partial thickness. Reported Pain Level Pain Score 0: Self Report Assessment PT Clinical Summary Pt has completed 7 visits of skilled therapy for gait and functional mobility training following a R below the knee amputation. Pt demonstrates a good gait pattern with minimal deviations, good LE strength, and good balance. He has met all of his therapy goals at this time and no longer requires skilled services. He will be d/c'ed at this time.
== END 2023-10-14 09:39 | disposition home or self-care (01) ==
LOC: ANHGOSHPT 08:00
PROVIDERS: PCP Family Medicine; Visit Provider Family Medicine
DX: S88.111A Complete traumatic amputation at level between knee and ankle, right lower leg, initial encounter (principal)
CPT/HCPCS: 97110; 97112; 97116; 97140; 97161; 97530

== ENCOUNTER 2023-12-08 18:09 | Inpatient (IN) | payer OTHER, SELFPAY ==
--- NOTE | ~2023-12-08 | CT_ITS ---
CT LE RT w con DATE: 12/11/2023 15:59 INDICATION: Possible drainable abscess and osteomyelitis TECHNIQUE: Axial images through the right lower extremity beginning above the knee and continuing thr ough the stump of the right below-knee amputation. Sagittal and coronal reconstructions. Exam dose: 768.79 mGy-cm total exam DLP. COMPARISON: None FINDINGS: Status post below-knee amputation. There is prominent edema There multiple loculated fluid collections variable size along the anteromedial aspect of the lower l eg beneath the level of the knee, one of the larger fluid collections measuring up to approximately 1 .4 x 2 cm maximal dimension. These have attenuation in the mid millimeters upper 20 Hounsfield unit r ford. No fracture or dislocation, periosteal reaction or bone destruction is evident. Three-phase radionuclide bone scan would be more sensitive for detection of osteomyelitis however. IMPRESSION: Multiple nonspecific loculated fluid collections along the anteromedial aspect of the pro ximal lower leg; definitive diagnosis includes edema, seroma, abscess. The multiloculated nature of the collections would probably limit effectiveness of attempted drainage , but aspiration could be performed from this area for diagnostic purposes. Edema of the right lower extremity at and below the knee Status post below knee amputation Three-phase radionuclide bone would be more sensitive for detection of osteomyelitis. Reviewed, dictated and finalized at [facility]. Reviewed, dictated and finalized at [facility]. IMPRESSION: Multiple nonspecific loculated fluid collections along the anterome dial aspect of the proximal lower leg; definitive diagnosis includes edema, ser parul, abscess. The multiloculated nature of the collections would probably limit effectiveness of attempted drainage, but aspiration could be performed from this area for di agnostic purposes. Edema of the right lower extremity at and below the knee Status post below knee amputation Three-phase radionuclide bone would be more sensitive for detection of osteomye litis.
--- NOTE | ~2023-12-08 | XR_ITS ---
EXAMINATION: [id number] DATE: 12/08/2023 19:36 INDICATION: Right bbtke-gbp-xsbd amputation with stump infection TECHNIQUE: AP and lateral views of the right knee were obtained. COMPARISON: None. FINDINGS: Postoperative change of prior right anioy-lqf-vhgf amputation with smooth osteotomy margins. No evide nt cortical erosions or osteophytosis to suggest osteomyelitis. There are few surgical clips the soft tissues about the osteotomy margin. There is prominent subcutaneous edema about the knee and stump. Joint spaces the right knee appear normal with no right knee joint effusion. Small patellar enthesoph ytes. IMPRESSION: 1. Right zzufy-zzl-kyxy amputation with smooth osteotomy margins with no cortical erosion/osteolysis to suggest osteomyelitis. Reviewed, dictated and finalized at [facility] IMPRESSION: 1. Right idjki-vvs-wblg amputation with smooth osteotomy margins with no cortic al erosion/osteolysis to suggest osteomyelitis.
[2023-12-08 18:10] VITALS: BP 136/99; PULSE 103; RESP 17; TEMP 36.6; O2SAT 97
--- NOTE | 2023-12-08 19:32 | ED.GENADULT ---
HPI - General Adult General Chief complaint: Skin/Abscess/Foreign Body Stated complaint: infection to stump Time Seen by Provider: 12/08/23 19:21 History of Present Illness HPI narrative: Patient is a 63-year-old male who presents to the emergency department this evening due to an infected stump and his right lower extremity. Patient has fhzjz-jkc-ydgq amputation performed on January of 2023 at [place] and states that since he has had an infection of his stump approximately 3 times due to ingrown hair follicles. Patient states that due to this he is planning on getting laser hair removal. Patient states the previous infections of all been treated by oral antibiotics by his primary care physician. Patient states the symptoms started on Wednesday with some erythema and patient has noted there is a small area that has now started to drain. Patient states that he does not have a lot of pain from his stump. Patient started Keflex yesterday but decided to come in for further evaluation as he does not feel as though it is improving his symptoms. Related Data Home Medications Medication Instructions Recorded Confirmed acetaminophen 500 mg capsule 500 mg PO Q6H PRN 06/10/23 11/12/23 aspirin 81 mg tablet,delayed 81 mg PO DAILY 06/10/23 11/12/23 release (Adult Aspirin Regimen) loratadine 10 mg disintegrating 10 mg PO DAILY 06/10/23 11/12/23 tablet Allergies Allergy/AdvReac Type Severity Reaction Status Date / Time No Known Allergies Allergy Verified 11/12/23 11:31 Review of Systems Review of Systems: All systems are reviewed and are negative unless stated otherwise in the HPI. COUNTS INCLUDE 234 BEDS AT THE [facility] Past Medical History Medical History Amputation of right lower extremity below knee Closed right ankle fracture Diarrhea Erectile dysfunction Hammertoe of right foot Right 4th toe HTN (hypertension), benign Hypertension Mixed hyperlipidemia Nausea & vomiting Neuropathy Obesity Peripheral neuropathy, idiopathic Pilon fracture of right tibia Prediabetes Seasonal allergies Toe ulcer, right Family History Family History Father Family history of lymphoma, Onset Age: 35 Other Family history of glaucoma Family history of hypercholesterolemia Hypertension Social History Social History Smoking status: Never smoker Alcohol intake: never Substance use: never Do You Feel Safe in your Home?: Yes Lack of Transportation: No Lack of Food: Never True Current Housing: I Have Housing Concerned About Future Housing: No Difficulty Paying Gas/Electric Bills: No Difficulty Paying for Meds: No Currently Unemployed: No Education: Don't Know Difficulty w/ Childcare or Family Care: No Spiritual care concerns: No Exam Narrative: General: Alert, awake, afebrile, in no acute distress. HEENT: PERRL, no rhinorrhea, no post nasal drip, oropharynx clear. Cardiovascular: Regular rate and rhythm, no murmurs, rubs or gallops, no peripheral edema. Respiratory: Clear to auscultation bilaterally, no tachypnea, no wheezing, no rhonchi, no rubs, no respiratory distress. Abdomen: Soft, nontender, nondistended, no rebound, no guarding, no peritoneal signs. Musculoskeletal: No joint swelling or deformity, normal muscle tone. Skin: Erythema and swelling to right stump with a small pustular area of drainage measuring approximately 2 x 3 cm consistent with cellulitis/abscess. Neurological: Alert and oriented to person, place, and time. Follows all commands. No focal deficits, speech is clear and fluent. Course Vital Signs Vital signs: Vital Signs Temperature 97.8 F 12/08/23 18:10 Pulse Rate 103 H 12/08/23 18:10 Respiratory Rate 17 12/08/23 18:10 Blood Pressure 136/99 H 12/08/23 18:10 Pulse Oximetry 97 12/08/23 18:10 Oxygen Delivery Room Air 12/08/23 18:10 Temperature 97.8 F 12/08/23 18:10 Pulse Rate 103 H 12/08/23 18:10 Respiratory Rate 17 12/08/23 18:10 Blood Pressure 115/63 12/08/23 20:17 Pulse Oximetry 94 12/08/23 20:17 Oxygen Delivery Room Air 12/08/23 18:10 Medical Decision Making MDM Narrative Medical decision making narrative: The patient was evaluated by myself in the emergency department. History is obtained from patient who is an independent historian and physical exam was performed. External medical records were reviewed at this time. IV was established and pertinent tests were ordered. Laboratory results obtained revealing a white blood cell count of 13.5, CRP 28.2, ESR pending. Patient was started on IV vancomycin and cefepime for both MRSA and Pseudomonas coverage at this time after blood cultures were obtained. Wound cultures were ordered at this time. Imaging studies obtained included right tib-fib x-ray which was independently interpreted by me revealing no acute process, no evidence of osteomyelitis, which is pending final radiology interpretation. Differential diagnosis considerations include cellulitis, abscess, osteomyelitis, sepsis. Comorbidities impacting this visit include h/x of recurrent skin infections. I have evaluated and discussed social determinants of health with the patient that could potentially impact subsequent diagnosis and treatment plans. On repeat assessment of the patient, reevaluation revealed that the patient is doing well and is in no acute distress. Patient symptoms have improved since he arrived to our emergency department. Repeat vital signs were all reviewed and noted to be stable. Differential diagnosis and treatment plan were discussed with the patient at bedside. Patient agrees with discussion and after shared medical decision making agrees with admission for IV antibiotics. Case was discussed with the on-call hospitalist Dr. Morgan @ [phone] and she accepted admission. Vital Signs Vital Signs: Vital Signs Temperature 97.8 F 12/08/23 18:10 Pulse Rate 103 H 12/08/23 18:10 Respiratory Rate 17 12/08/23 18:10 Blood Pressure 136/99 H 12/08/23 18:10 Pulse Oximetry 97 12/08/23 18:10 Oxygen Delivery Room Air 12/08/23 18:10 Temperature 97.8 F 12/08/23 18:10 Pulse Rate 103 H 12/08/23 18:10 Respiratory Rate 17 12/08/23 18:10 Blood Pressure 115/63 12/08/23 20:17 Pulse Oximetry 94 12/08/23 20:17 Oxygen Delivery Room Air 12/08/23 18:10 Lab Data 12/08/23 19:50 12/08/23 19:50 Labs: Lab Results 12/08/23 Range/Units 19:50 WBC 13.5 H (4.5-10.0) K/mm3 RBC 4.37 L (4.6-6.20) M/mm3 Hgb 12.4 L D (14.0-18.0) g/dL Hct 38.3 L (42.0-52.0) % MCV 87.6 (80-100) fl MCH 28.4 (26-34) pg MCHC 32.4 (32-36) g/dl RDW 15.2 H (11.5-14.5) % Plt Count 214 (150-375) k/mm3 MPV 9.2 (7.4-10.4) fl Immature Gran % (Auto) 0.5 (0-0.5) % Neut % (Auto) 86.0 H (45.5-73.1) % Lymph % (Auto) 6.9 L (18.3-44.2) % [place] % (Auto) 5.4 (2.6-8.5) % Eos % (Auto) 1.1 (0-4.4) % Baso % (Auto) 0.1 L (0.2-1.2) % Lymph # (Auto) 0.93 (0.9-3.2) K/mm3 [place] # (Auto) 0.7 H (0.1-0.6) K/mm3 Eos # (Auto) 0.2 (0-0.3) K/mm3 Baso # (Auto) 0.0 (0.0-0.1) K/mm3 Abs Immat Gran (auto) 0.07 H (0.00-0.031) K/mm3 Absolute Neuts (auto) 11.6 H (1.3-6.7) K/mm3 Absolute Nucleated RBC 0.000 (0.0-0.012) K/mm3 Nucleated RBC % 0.0 (0.0-0.2) % ESR Pending Sodium 133 L (137-145) mmol/L Potassium 4.3 (3.4-5.0) mmol/L Chloride 98 (98-107) mmol/L Carbon Dioxide 22 (22-30) mmol/L Anion Gap 13 H (4-12) mmol/L BUN 29 H D (9-20) mg/dL Creatinine 1.10 (0.7-1.3) mg/dL Estim Creat Clear Calc 81 ml/min Estimated GFR > 60 (59 - ) Glucose 123 H (65-110) mg/dL Lactic Acid 1.1 (0.7-2.0) mmol/L Calcium 9.5 (8.4-10.2) mg/dL Magnesium 2.1 (1.6-2.3) mg/dL Total Bilirubin 0.6 (0.2-1.3) mg/dL AST 17 (17-59) U/L ALT 17 (6-50) U/L Alkaline Phosphatase 73 (38-126) U/L C-Reactive Protein 28.2 H (<1.0) mg/dL Total Protein 8.0 (6.3-8.2) g/dL Albumin 4.4 (3.5-5.1) g/dL Discharge Plan Discharge Clinical Impression: Cellulitis, Sepsis Patient Disposition: Still a Patient Condition: Stable Prescriptions: No Action acetaminophen 500 mg capsule 500 mg PO Q6H PRN loratadine 10 mg tablet,disintegrating 10 mg PO DAILY aspirin [Adult Aspirin Regimen] 81 mg tablet,delayed release (DR/EC) 81 mg PO DAILY Jardiance 10 mg tablet 10 mg PO DAILY Qty: 90 3RF (DME) blood-glucose meter Kit See Rx Instructions .Route Qty: 1 0RF Rx Instructions: As directed lisinopril-hydrochlorothiazide 10-12.5 mg tablet 1 tablet PO DAILY Qty: 90 2RF tamsulosin 0.4 mg capsule 0.4 mg PO DAILY Qty: 90 3RF atorvastatin [Lipitor] 10 mg tablet 10 mg PO QHS Qty: 90 1RF metformin 500 mg tablet extended release 24 hr 500 mg PO BID Qty: 180 1RF Rx Instructions: with meals lisinopril 10 mg tablet 10 mg PO DAILY Qty: 90 2RF sertraline 100 mg tablet 100 mg PO DAILY Qty: 90 1RF spironolactone 50 mg tablet 50 mg PO BID Qty: 180 1RF cephalexin 500 mg capsule 500 mg PO Q8H Qty: 21 1RF Follow-up/Referrals: Tong Mock MD [Primary Care Provider] - Time of Disposition: 20:54
[2023-12-08 19:58] LABS: Basophils Percent Auto 0.1 % (0.2-1.2); Eosinophils Absolute Auto 0.2 K/mm3 (0-0.3); Eosinophils Percent Auto 1.1 % (0-4.4); Hematocrit 38.3 % (42.0-52.0); Hemoglobin 12.4 g/dL (14.0-18.0); Immature Granulocyte Absolute 0.07 K/mm3 (0.00-0.031); Immature Granulocyte Percent A 0.5 % (0-0.5); Lymphocytes Absolute Auto 0.93 K/mm3 (0.9-3.2); Lymphocytes Percent Auto 6.9 % (18.3-44.2); Mean Corpuscular HGB Conc 32.4 g/dl (32-36); Mean Corpuscular Hemoglobin 28.4 pg (26-34); Mean Corpuscular Volume 87.6 fl (80-100); Mean Platelet Volume 9.2 fl (7.4-10.4); Monocytes Absolute Auto 0.7 K/mm3 (0.1-0.6); Monocytes Percent Auto 5.4 % (2.6-8.5); Neutrophils Absolute Auto 11.6 K/mm3 (1.3-6.7); Platelet Count Result 214 k/mm3 (150-375); Red Blood Count 4.37 M/mm3 (4.6-6.20); Red Cell Distribution Width 15.2 % (11.5-14.5); White Blood Count 13.5 K/mm3 (4.5-10.0)
[2023-12-08 20:04] VITALS: BP 113/65; O2SAT 97
[2023-12-08 20:17] VITALS: BP 115/63; O2SAT 94
[2023-12-08 20:17] LABS: Alanine Aminotransferase 17 U/L (6-50); Albumin Level 4.4 g/dL (3.5-5.1); Alkaline Phosphatase 73 U/L (38-126); Anion Gap 13 mmol/L (4-12); Aspartate Amino Transferase 17 U/L (17-59); Bilirubin,Total 0.6 mg/dL (0.2-1.3); Blood Urea Nitrogen 29 mg/dL (9-20); Calcium 9.5 mg/dL (8.4-10.2); Carbon Dioxide 22 mmol/L (22-30); Chloride 98 mmol/L (98-107); Estimated CRCL calculation 81 ml/min; Estimated Glomerular Filt Rate > 60; Glucose 123 mg/dL (65-110); Magnesium 2.1 mg/dL (1.6-2.3); Potassium 4.3 mmol/L (3.4-5.0); Sodium 133 mmol/L (137-145)
[2023-12-08 20:22] LABS: Lactic Acid Reflex 1.1 mmol/L (0.7-2.0)
[2023-12-08 20:39] LABS: CRP 28.2 mg/dL (<1.0)
--- NOTE | 2023-12-08 20:45 | PM.IMHP ---
H&P: HPI History of Present Illness Date/Time: 12/08/23 20:45 Chief Complaint: stump cellulitis Narrative: This is a 63-year-old male with past medical history significant for dyslipidemia, obesity, hypertension, peripheral neuropathy, type 2 diabetes mellitus, benign prostatic hyperplasia, right BKA. patient presents to the emergency room due to redness swelling tenderness and wound of stump, this has evolved over the course of 3-4 days. Patient started cefazolin however in view of worsening of the site came to the emergency room. Patient denies any fevers, chills, night sweats, nausea, vomiting, generalized aches and pains or generalized malaise. An x-ray was not suggestive of osteomyelitis. Patient has been admitted for further evaluation management and treatment. EXAMINATION: [id number] DATE: 12/08/2023 19:36 INDICATION: Right baros-zmg-sjzn amputation with stump infection TECHNIQUE: AP and lateral views of the right knee were obtained. COMPARISON: None. FINDINGS: Postoperative change of prior right blsjy-sxd-ofum amputation with smooth osteotomy margins. No evident cortical erosions or osteophytosis to suggest osteomyelitis. There are few surgical clips the soft tissues about the osteotomy margin. There is prominent subcutaneous edema about the knee and stump. Joint spaces the right knee appear normal with no right knee joint effusion. Small patellar enthesophytes. IMPRESSION: 1. Right dwbkl-ghp-avwv amputation with smooth osteotomy margins with no cortical erosion/osteolysis to suggest osteomyelitis. Review of Systems Review of Systems: stump swelling, redness, tenderness. PMFSH Past Medical History Medical History Amputation of right lower extremity below knee Closed right ankle fracture Diarrhea Erectile dysfunction Hammertoe of right foot Right 4th toe HTN (hypertension), benign Hypertension Mixed hyperlipidemia Nausea & vomiting Neuropathy Obesity Peripheral neuropathy, idiopathic Pilon fracture of right tibia Prediabetes Seasonal allergies Toe ulcer, right Family History Family History (Updated 12/08/23 @ 22:04 by Bev Melton RN) Father Family history of lymphoma, Onset Age: 35 Mother Hypertension Family history of hypercholesterolemia Social History Social History Smoking status: Never smoker Alcohol intake: never Substance use: never Substance use type: does not use Do You Feel Safe in your Home?: Yes Lack of Transportation: No Lack of Food: Never True Current Housing: I Have Housing Concerned About Future Housing: No Difficulty Paying Gas/Electric Bills: No Difficulty Paying for Meds: No Currently Unemployed: No Education: Master's Degree or Higher Difficulty w/ Childcare or Family Care: No Spiritual care concerns: No Meds Home Medications and Allergies Home Medications Medication Instructions Recorded Confirmed Type tamsulosin 0.4 mg capsule 0.4 mg PO DAILY #90 caps 04/01/23 12/08/23 Rx acetaminophen 500 mg capsule 1,500 mg PO Q6H PRN Pain (Scale 06/10/23 12/08/23 History Score 4-6) aspirin 81 mg tablet,delayed 81 mg PO DAILY 06/10/23 12/08/23 History release (Adult Aspirin Regimen) empagliflozin 10 mg tablet 10 mg PO DAILY #90 tabs 06/10/23 12/08/23 Rx (Jardiance) loratadine 10 mg disintegrating 10 mg PO DAILY 06/10/23 12/08/23 History tablet atorvastatin 10 mg tablet (Lipitor) 10 mg PO QHS #90 tabs 07/20/23 12/08/23 Rx metformin 500 mg tablet,extended 500 mg PO BID #180 tabs 08/24/23 12/08/23 Rx release 24 hr lisinopril 10 mg tablet 10 mg PO DAILY #90 tabs 09/06/23 12/08/23 Rx sertraline 100 mg tablet 100 mg PO DAILY #90 tabs 09/13/23 12/08/23 Rx blood-glucose meter #1 ea 10/22/23 12/08/23 Rx spironolactone 50 mg tablet 50 mg PO BID #180 tabs 11/24/23 12/08/23 Rx cephalexin 500 mg capsule 500 mg PO Q8H #21 caps 12/07/23 12/08/23 Rx ibuprofen 200 mg tablet 600 mg PO Q6H PRN Pain (Scale 12/08/23 12/08/23 History Score 4-6) Allergies Allergy/AdvReac Type Severity Reaction Status Date / Time No Known Allergies Allergy Verified 11/12/23 11:31 Vital Signs Vital Signs - 24 hr 12/08/23 18:10 12/08/23 20:04 12/08/23 20:17 Temperature 97.8 F Pulse Rate 103 H Respiratory Rate 17 Blood Pressure 136/99 H 113/65 115/63 Pulse Oximetry 97 97 94 Oxygen Delivery Room Air Exam Narrative: patient is sitting on the stretcher with leg dangling Const: General: comfortable, no acute distress, well developed, alert, awake and obese Nutritional Appearance: obese Orientation/consciousness: patient oriented x3 HENMT: Head: normal to inspection, normocephalic and atraumatic Ears: hearing grossly normal bilaterally Face/Nose/Sinus: normal facial exam Face and sinus: normal facial exam Eyes: General: appearance normal, both eyes and all related structures Pupils: Equal, round and reactive pupils present EOM: EOMs intact bilaterally Neck: Neck: full ROM, no lymphadenopathy and no JVD Thyroid: thyroid normal Lymphatic: no lymphadenopathy noted Resp: Effort & Inspection: normal respiratory effort and able to speak in complete sentences Auscultation: clear to auscultation bilaterally Cardio: Jugular venous distension: no JVD Rate: regular rate Rhythm: regular rhythm Heart sounds: S1 normal heart sound present and S2 normal heart sound present GI: GI Palp: Yes Soft to palpation and Yes No hepatosplenomegaly present : General: Yes deferred Skin: Wounds: wounds noted ( R stump) Neuro: General: patient oriented x3 and CN's II-XI intact bilaterally Cranial nerves: Yes CN's II-XII intact bilaterally and Yes Equal, round and reactive pupils present Cognition (Neuro): normal cognition Speech: normal speech Gait exam (Neuro): Unable to assess gait Motor exam (neuro): 5/5 motor strength present throughout Extrem: General: normal to inspection, full ROM, no joint enlargement and no pedal edema Other: RIGHT BKA STUMP WITH REDNESS OPEN WOUND H&P: Results Labs Labs: Short CBC 12/08/23 Range/Units 19:50 WBC 13.5 H (4.5-10.0) K/mm3 Hgb 12.4 L D (14.0-18.0) g/dL Hct 38.3 L (42.0-52.0) % Plt Count 214 (150-375) k/mm3 BMP 12/08/23 19:50 Sodium 133 L Potassium 4.3 Chloride 98 Carbon Dioxide 22 BUN 29 H D Creatinine 1.10 Glucose 123 H Calcium 9.5 Liver Function 12/08/23 Range/Units 19:50 Total Bilirubin 0.6 (0.2-1.3) mg/dL AST 17 (17-59) U/L ALT 17 (6-50) U/L Alkaline Phosphatase 73 (38-126) U/L Albumin 4.4 (3.5-5.1) g/dL Assessment and Plan Assessment and plan (1) Right BKA infection: Code(s): T87.43 - Infection of amputation stump, right lower extremity Status: Acute Assessment and Plan: ADMIT TO REGULAR MEDICAL FLOOR PATIENT STARTED ON VANCOMYCIN AND CEFEPIME CULTURES IN PROGRESS (2) Cellulitis of right lower limb: Code(s): L03.115 - Cellulitis of right lower limb Status: Acute Assessment and Plan: CONTINUE TO MONITOR (3) Obesity: Qualifiers: Body mass index: BMI 40.0-44.9 Obesity classification: adult class 3 (BMI >= 40) Obesity type: due to excess calories Serious obesity comorbidity presence: with serious comorbidity Qualified Code(s): E66.01 - Morbid (severe) obesity due to excess calories; Z68.41 - Body mass index [BMI]40.0-44.9, adult Code(s): E66.9 - Obesity, unspecified Status: Acute Assessment and Plan: LIFESTYLE AND DIET MODIFICATION (4) Peripheral neuropathy, idiopathic: Code(s): G60.9 - Hereditary and idiopathic neuropathy, unspecified Status: Acute Assessment and Plan: UNCHANGED (5) HTN (hypertension), benign: Code(s): I10 - Essential (primary) hypertension Status: Acute Assessment and Plan: RESUME HOME MEDS NEEDED (6) Mixed hyperlipidemia: Code(s): E78.2 - Mixed hyperlipidemia Status: Acute Assessment and Plan: CONTINUE STATIN Hospitalist MIPS Advance Care Plan I have confirmed that the patient's Advanced Care Plan is present, code status is documented, or surrogate decision maker is listed in patient medical record.: Yes Medication Reconciliation I have utilized all available resources to obtain, update and review the patients current medications (includes all prescriptions, OTC, herbals, cannabis, and nutritional supplements).: Yes
[2023-12-08 21:16] LABS: Erythrocyte Sedimentation Rate 66 mm/hr (0-20)
[2023-12-08] MEDS: CEFEPIME 2 GM/NS 50 ML 2 GM/50 ML BAG IVPB (21:30)
[2023-12-08] MEDS: ONDANSETRON INJ 4 MG/2 ML VIAL IV PUSH (21:37)
[2023-12-08] MEDS: MORPHINE SULFATE (*CRX) 2 MG/ML INJ IV PUSH (21:37)
[2023-12-08 21:41] VITALS: BP 136/87; PULSE 86; RESP 16; O2SAT 98
[2023-12-08] MEDS: VANCOMYCIN 1,500 MG/NS 500 ML 1,500 MG/500 ML BAG 250 MG IVPB (21:53)
--- NOTE | 2023-12-08 21:53 | ADMGEN ---
This patient, Mk Kaba Jr., was admitted to Medical Room 252-01. Patient/family oriented to hospital policies and general routines including ID bracelet, bed and alarms, visiting hours, pain management, procedures, bathroom and other care routines, personal items, smoking policy, room service/diet, and visiting hours. Information on how to activate the Rapid Response Team has been discussed. Patient/Family are encouraged to report perceived risks to care and to ask questions if they do not understand what they are told or what they should do.
[2023-12-08 21:58] VITALS: BP 130/62; PULSE 113; RESP 18; TEMP 37.1; O2SAT 98
[2023-12-09] MEDS: ACETAMINOPHEN 500 MG TABLET 1000 MG PO ×3 (02:07→19:44)
[2023-12-09 05:58] LABS: Estimated CRCL calculation 69 ml/min; Estimated Glomerular Filt Rate 56
[2023-12-09 06:00] VITALS: BP 134/70; PULSE 71; RESP 78; TEMP 36.7; O2SAT 96
[2023-12-09 07:38] LABS: Anion Gap 10 mmol/L (4-12); Blood Urea Nitrogen 30 mg/dL (9-20); Calcium 8.9 mg/dL (8.4-10.2); Carbon Dioxide 22 mmol/L (22-30); Chloride 101 mmol/L (98-107); Estimated CRCL calculation 74 ml/min; Estimated Glomerular Filt Rate > 60; Glucose 124 mg/dL (65-110); Potassium 4.6 mmol/L (3.4-5.0); Sodium 133 mmol/L (137-145)
[2023-12-09 07:44] LABS: Basophils Percent Auto 0.3 % (0.2-1.2); Eosinophils Absolute Auto 0.2 K/mm3 (0-0.3); Eosinophils Percent Auto 1.3 % (0-4.4); Hematocrit 36.2 % (42.0-52.0); Hemoglobin 11.4 g/dL (14.0-18.0); Immature Granulocyte Absolute 0.06 K/mm3 (0.00-0.031); Immature Granulocyte Percent A 0.5 % (0-0.5); Lymphocytes Absolute Auto 1.05 K/mm3 (0.9-3.2); Lymphocytes Percent Auto 9.2 % (18.3-44.2); Mean Corpuscular HGB Conc 31.5 g/dl (32-36); Mean Corpuscular Volume 88.9 fl (80-100); Mean Platelet Volume 9.8 fl (7.4-10.4); Monocytes Percent Auto 8.8 % (2.6-8.5); Neutrophils Absolute Auto 9.2 K/mm3 (1.3-6.7); Neutrophils Percent Auto 79.9 % (45.5-73.1); Platelet Count Result 213 k/mm3 (150-375); Red Blood Count 4.07 M/mm3 (4.6-6.20); Red Cell Distribution Width 15.3 % (11.5-14.5); White Blood Count 11.5 K/mm3 (4.5-10.0)
[2023-12-09 07:51] VITALS: O2SAT 98
[2023-12-09] MEDS: SERTRALINE HCL 50 MG TABLET 100 MG PO (08:02)
[2023-12-09] MEDS: TAMSULOSIN HCL 0.4 MG CAPSULE PO (08:02)
[2023-12-09] MEDS: LORATADINE 10 MG TABLET PO (08:03)
[2023-12-09] MEDS: EMPAGLIFLOZIN 10 MG TABLET PO (08:03)
[2023-12-09] MEDS: SPIRONOLACTONE 50 MG TABLET PO ×2 (08:03→16:19)
[2023-12-09] MEDS: lisinopriL 10 MG TABLET PO (08:03)
[2023-12-09] MEDS: ASPIRIN 81 MG ENTERIC TABLET PO (08:03)
[2023-12-09] MEDS: VANCOMYCIN 1,500 MG/NS 500 ML 1,500 MG/500 ML BAG 250 MG IVPB ×2 (09:08→21:28)
--- NOTE | 2023-12-09 10:17 | P.PNIM_ITS ---
Progress Note: A&P Assessment and Plan (1) Right BKA infection: Code(s): T87.43 - Infection of amputation stump, right lower extremity Status: Acute Assessment and Plan: * Continue Vancomycin and Cefepime for abx coverage. * Trend labs and VS. * Wound culture pending * Blood cultures pending * XR RLE without any s/s of Osteomyelitis. * Consider CT RLE if any acute worsening of infection. (2) Cellulitis of right lower limb: Code(s): L03.115 - Cellulitis of right lower limb Status: Acute Assessment and Plan: * See #1 (3) Diabetes mellitus: Qualifiers: Diabetes mellitus complication detail: with foot ulcer Diabetes mellitus complication status: with skin complications Diabetes mellitus residential insulin use: without superintendent container terminal use Diabetes mellitus type: type 2 Qualified Code(s): E11.621 - Type 2 diabetes mellitus with foot ulcer; L97.509 - Non-pressure chronic ulcer of other part of unspecified foot with unspecified severity Code(s): E11.9 - Type 2 diabetes mellitus without complications Status: Chronic Assessment and Plan: * Check A1C (Historically waxes and wanes between pre-diabetic and normal) * SSI low dose mealtimes * Hypoglycemic protocol * Glucose checks AC and HS * Carb controlled diet. * Goal is to obtain tight control on glucose to promote healing. * Continue Jardiance. (4) Obesity: Qualifiers: Obesity type: due to excess calories Obesity classification: adult class 3 (BMI >= 40) Serious obesity comorbidity presence: with serious comorbidity Body mass index: BMI 40.0-44.9 Qualified Code(s): E66.01 - Morbid (severe) obesity due to excess calories; Z68.41 - Body mass index [BMI]40.0- 44.9, adult Code(s): E66.9 - Obesity, unspecified Status: Chronic Assessment and Plan: * Lifestyle changes are encouraged not only for weight control, but also for tighter glucose control to ensure healing. * Diabetic diet (5) Peripheral neuropathy, idiopathic: Code(s): G60.9 - Hereditary and idiopathic neuropathy, unspecified Status: Chronic Assessment and Plan: * Most likely consistent with Diabetic PN. * Tight Glucose control needed. (6) HTN (hypertension), benign: Code(s): I10 - Essential (primary) hypertension Status: Chronic Assessment and Plan: * Continue lisinopril and Aldactone. * Trend blood pressures. (7) Mixed hyperlipidemia: Code(s): E78.2 - Mixed hyperlipidemia Status: Chronic Assessment and Plan: * Continue Statin therapy. Time Spent With Patient Time with patient: 25 - 35 minutes Subjective Date/time seen: 12/09/23 0820 Interval history: This very pleasant male pt was examined at the bedside today in interval assessment since being admitted for cellulitis of the RLE stump in the setting of an existing BKA. He remains on Vancomycin and Cefepime at this time. Culture of the wound is pending. Pt states he has no pain and he has no other acute complaints. He is not meeting Sepsis criteria. Review of Systems Review of Systems: All systems reviewed & are unremarkable except as noted in HPI and below Exam Narrative: CONSTITUTIONAL: Pleasant, male pt sitting in bed at this time in no acute distress. HEENT: Head is atraumatic and normocephalic. Patent oropharynx and MMM. EYES: Non-icteric, PERRLA, EOMs intact NECK: FROM in supple manner, No LN RESPIRATORY: CTAB in all brewer CARDIAC: RRR, S1 and S2. No S3, S4, m,r,g,h or displacement of PMI CHEST: non tender to palpation GI: Soft, NTTP, BS+x4 : Deferred SKIN: Right stump with erythema, rubor, and mild edema. Outline present and there is no extension beyond the outlined area. NEURO: Non-focal exam EXTREMITIES: As noted in Skin exam. Otherwise with FROM actively. PSYCH: A&Ox4 Objective Data Vital Signs Vital Signs: Vital Signs - 24 hr 12/08/23 18:10 12/08/23 20:04 12/08/23 20:17 Temperature 97.8 F Pulse Rate 103 H Respiratory Rate 17 Blood Pressure 136/99 H 113/65 115/63 Pulse Oximetry 97 97 94 Oxygen Delivery Room Air 12/08/23 21:41 12/08/23 22:05 12/08/23 21:58 Temperature 98.7 F Pulse Rate 86 113 H Respiratory Rate 16 18 Blood Pressure 136/87 130/62 Pulse Oximetry 98 98 Oxygen Delivery Room Air 12/09/23 06:00 12/09/23 07:51 Temperature 98.1 F Pulse Rate 71 Respiratory Rate 78 H Blood Pressure 134/70 Pulse Oximetry 96 98 Oxygen Delivery Room Air Intake/Output Intake/Output: Intake & Output 12/06/23 12/07/23 12/08/23 12/09/23 23:59 23:59 23:59 23:59 Intake Total 550 240 Output Total 350 Balance 550 -110 Meds/Results Medications: Active Medications Generic Name Dose Route Start Last Admin Trade Name Freq PRN Reason Stop Dose Admin Acetaminophen 1,000 mg 12/09/23 01:47 12/09/23 08:01 Acetaminophen 500 Mg Tablet PO 1,000 mg Q6H PRN Administration Mild Pain (1-3) or Fever Aspirin 81 mg 12/09/23 09:00 12/09/23 08:03 Aspirin 81 Mg Enteric Tablet PO 81 mg DAILY ТАТЬЯНА Administration Atorvastatin Calcium 10 mg 12/09/23 21:00 Atorvastatin 10 Mg Tablet PO QHS ТАТЬЯНА Empagliflozin 10 mg 12/09/23 09:00 12/09/23 08:03 Empagliflozin 10 Mg Tablet PO 10 mg DAILY ТАТЬЯНА Administration Hydromorphone HCl 1 mg 12/09/23 01:47 Hydromorphone Hcl Inj (*Crx) 1 Mg/Ml Syr IV PUSH Q3H PRN Pain Rated 7-10 Vancomycin HCl 1,500 mg in 500 mls @ 250 mls/hr 12/09/23 10:00 12/09/23 09:08 Vancomycin 1,500 Mg/Ns 500 Ml IVPB 250 mls/hr Q12H ТАТЬЯНА Administration Lisinopril 10 mg 12/09/23 09:00 12/09/23 08:03 Lisinopril 10 Mg Tablet PO 10 mg DAILY ТАТЬЯНА Administration Loratadine 10 mg 12/09/23 09:00 12/09/23 08:03 Loratadine 10 Mg Tablet PO 01/08/24 08:59 10 mg DAILY ТАТЬЯНА Administration Ondansetron HCl 4 mg 12/09/23 01:47 Ondansetron Inj 4 Mg/2 Ml Vial IV PUSH Q6H PRN Nausea And Vomiting Sertraline HCl 100 mg 12/09/23 09:00 12/09/23 08:02 Sertraline Hcl 50 Mg Tablet PO 100 mg DAILY ТАТЬЯНА Administration Spironolactone 50 mg 12/09/23 09:00 12/09/23 08:03 Spironolactone 50 Mg Tablet PO 50 mg BID ТАТЬЯНА Administration Tamsulosin HCl 0.4 mg 12/09/23 09:00 12/09/23 08:02 Tamsulosin Hcl 0.4 Mg Capsule PO 0.4 mg DAILY ТАТЬЯНА Administration Radiology Results: ITS Impressions Knee X-Ray 12/08/23 19:56 IMPRESSION: 1. Right mlyst-urj-unst amputation with smooth osteotomy margins with no cortical erosion/osteolysis to suggest osteomyelitis. Labs Labs: Laboratory Results - last 24 hr 12/08/23 12/09/23 12/09/23 19:50 05:24 05:24 WBC 13.5 H 11.5 H RBC 4.37 L 4.07 L Hgb 12.4 L D 11.4 L Hct 38.3 L 36.2 L MCV 87.6 88.9 MCH 28.4 28.0 MCHC 32.4 31.5 L RDW 15.2 H 15.3 H Plt Count 214 213 MPV 9.2 9.8 Immature Gran % (Auto) 0.5 0.5 Neut % (Auto) 86.0 H 79.9 H Lymph % (Auto) 6.9 L 9.2 L [place] % (Auto) 5.4 8.8 H Eos % (Auto) 1.1 1.3 Baso % (Auto) 0.1 L 0.3 Lymph # (Auto) 0.93 1.05 [place] # (Auto) 0.7 H 1.0 H Eos # (Auto) 0.2 0.2 Baso # (Auto) 0.0 0.0 Abs Immat Gran (auto) 0.07 H 0.06 H Absolute Neuts (auto) 11.6 H 9.2 H Absolute Nucleated RBC 0.000 0.000 Nucleated RBC % 0.0 0.0 ESR 66 H Sodium 133 L 133 L Potassium 4.3 4.6 Chloride 98 101 Carbon Dioxide 22 22 Anion Gap 13 H 10 BUN 29 H D 30 H Creatinine 1.10 1.30 1.20 Estim Creat Clear Calc 81 69 Estimated GFR > 60 Glucose 123 H Lactic Acid 1.1 Calcium 9.5 Magnesium 2.1 Total Bilirubin 0.6 AST 17 ALT 17 Alkaline Phosphatase 73 C-Reactive Protein 28.2 H Total Protein 8.0 Albumin 4.4 12/09/23 12/09/23 05:24 05:24 WBC RBC Hgb Hct MCV MCH MCHC RDW Plt Count MPV Immature Gran % (Auto) Neut % (Auto) Lymph % (Auto) [place] % (Auto) Eos % (Auto) Baso % (Auto) Lymph # (Auto) [place] # (Auto) Eos # (Auto) Baso # (Auto) Abs Immat Gran (auto) Absolute Neuts (auto) Absolute Nucleated RBC Nucleated RBC % ESR Sodium Potassium Chloride Carbon Dioxide Anion Gap BUN Creatinine Estim Creat Clear Calc 74 Estimated GFR 56 L > 60 Glucose 124 H Lactic Acid Calcium 8.9 Magnesium Total Bilirubin AST ALT Alkaline Phosphatase C-Reactive Protein Total Protein Albumin Quality VTE Prophylaxis VTE prophylaxis: mechanical ordered
[2023-12-09] MEDS: CEFEPIME 2 GM/NS 50 ML 2 GM/50 ML BAG IVPB ×2 (11:48→18:26)
[2023-12-09 12:01] LABS: Glucose Point of Care 150 mg/dl (65-105)
[2023-12-09 13:47] VITALS: BP 104/53; PULSE 83; RESP 18; TEMP 36.8; O2SAT 97
[2023-12-09 17:03] LABS: Glucose Point of Care 111 mg/dl (65-105)
[2023-12-09] MEDS: ATORVASTATIN 10 MG TABLET PO (21:28)
[2023-12-09 22:00] VITALS: BP 120/59; PULSE 93; RESP 18; TEMP 36.9; O2SAT 95
[2023-12-10] MEDS: CEFEPIME 2 GM/NS 50 ML 2 GM/50 ML BAG IVPB ×3 (03:01→18:15)
[2023-12-10 06:00] VITALS: BP 118/60; PULSE 76; RESP 18; TEMP 36.6; O2SAT 98
[2023-12-10 06:33] LABS: Basophils Percent Auto 0.3 % (0.2-1.2); Eosinophils Absolute Auto 0.2 K/mm3 (0-0.3); Eosinophils Percent Auto 2.3 % (0-4.4); Hematocrit 35.4 % (42.0-52.0); Hemoglobin 11.3 g/dL (14.0-18.0); Immature Granulocyte Absolute 0.05 K/mm3 (0.00-0.031); Immature Granulocyte Percent A 0.5 % (0-0.5); Lymphocytes Absolute Auto 1.16 K/mm3 (0.9-3.2); Lymphocytes Percent Auto 12.7 % (18.3-44.2); Mean Corpuscular HGB Conc 31.9 g/dl (32-36); Mean Corpuscular Hemoglobin 28.1 pg (26-34); Mean Corpuscular Volume 88.1 fl (80-100); Mean Platelet Volume 9.3 fl (7.4-10.4); Monocytes Absolute Auto 0.8 K/mm3 (0.1-0.6); Monocytes Percent Auto 8.9 % (2.6-8.5); Neutrophils Absolute Auto 6.9 K/mm3 (1.3-6.7); Neutrophils Percent Auto 75.3 % (45.5-73.1); Platelet Count Result 206 k/mm3 (150-375); Red Blood Count 4.02 M/mm3 (4.6-6.20); Red Cell Distribution Width 15.4 % (11.5-14.5); White Blood Count 9.1 K/mm3 (4.5-10.0)
[2023-12-10 06:45] LABS: Alanine Aminotransferase 16 U/L (6-50); Albumin Level 3.7 g/dL (3.5-5.1); Alkaline Phosphatase 57 U/L (38-126); Anion Gap 11 mmol/L (4-12); Aspartate Amino Transferase 17 U/L (17-59); Bilirubin,Total 0.5 mg/dL (0.2-1.3); Blood Urea Nitrogen 27 mg/dL (9-20); Calcium 9.1 mg/dL (8.4-10.2); Carbon Dioxide 22 mmol/L (22-30); Chloride 105 mmol/L (98-107); Estimated CRCL calculation 88 ml/min; Estimated Glomerular Filt Rate > 60; Glucose 115 mg/dL (65-110); Magnesium 2.2 mg/dL (1.6-2.3); Potassium 4.4 mmol/L (3.4-5.0); Sodium 138 mmol/L (137-145)
[2023-12-10 07:52] LABS: Glucose Point of Care 106 mg/dl (65-105)
[2023-12-10] MEDS: SPIRONOLACTONE 50 MG TABLET PO ×2 (08:20→17:03)
[2023-12-10] MEDS: lisinopriL 10 MG TABLET PO (08:20)
[2023-12-10] MEDS: SERTRALINE HCL 50 MG TABLET 100 MG PO (08:20)
[2023-12-10] MEDS: ASPIRIN 81 MG ENTERIC TABLET PO (08:20)
[2023-12-10] MEDS: LORATADINE 10 MG TABLET PO (08:20)
[2023-12-10] MEDS: TAMSULOSIN HCL 0.4 MG CAPSULE PO (08:20)
[2023-12-10] MEDS: EMPAGLIFLOZIN 10 MG TABLET PO (08:20)
[2023-12-10] MEDS: ACETAMINOPHEN 500 MG TABLET 1000 MG PO ×3 (08:22→21:29)
[2023-12-10 10:43] LABS: Vancomycin Trough 13.6 ug/mL (10.0-20.0)
[2023-12-10] MEDS: VANCOMYCIN 1,500 MG/NS 500 ML 1,500 MG/500 ML BAG 250 MG IVPB (11:02)
[2023-12-10 11:50] LABS: Glucose Point of Care 107 mg/dl (65-105)
[2023-12-10 14:00] VITALS: BP 117/60; PULSE 76; RESP 20; TEMP 36.7; O2SAT 97
[2023-12-10 16:43] LABS: Glucose Point of Care 91 mg/dl (65-105)
--- NOTE | 2023-12-10 18:35 | P.PNIM_ITS ---
Progress Note: A&P Assessment and Plan (1) Right BKA infection: Code(s): T87.43 - Infection of amputation stump, right lower extremity Status: Acute Assessment and Plan: * Continue Vancomycin and Cefepime for abx coverage. * Trend labs and VS. * Wound culture growing Staph Aureus. * Blood cultures NGTD. * XR RLE without any s/s of Osteomyelitis. * We'll consider CT RLE if any acute worsening of infection. (2) Cellulitis of right lower limb: Code(s): L03.115 - Cellulitis of right lower limb Status: Acute Assessment and Plan: * See #1 above. (3) Diabetes mellitus: Qualifiers: Diabetes mellitus complication detail: with foot ulcer Diabetes mellitus complication status: with skin complications Diabetes mellitus long t erm insulin use: without lobsterman use Diabetes mellitus type: type 2 Qualified Code(s): E11.621 - Type 2 diabetes mellitus with foot ulcer; L97.509 - Non-pressure chronic ulcer of other part of unspecified foot with unspecified severity Code(s): E11.9 - Type 2 diabetes mellitus without complications Status: Chronic Assessment and Plan: * Check A1C (Historically waxes and wanes between pre-diabetic and normal) * SSI low dose mealtimes * Hypoglycemic protocol * A1C 6 on this admission. * Carb controlled diet. * Goal is to obtain tight control on glucose to promote healing. * Continue Jardiance. (4) Obesity: Qualifiers: Obesity type: due to excess calories Obesity classification: adult class 3 (BMI >= 40) Serious obesity comorbidity presence: with serious comorbidity Body mass index: BMI 40.0-44.9 Qualified Code(s): E66.01 - Morbid (severe) obesity due to excess calories; Z68.41 - Body mass index [BMI]40.0- 44.9, adult Code(s): E66.9 - Obesity, unspecified Status: Chronic Assessment and Plan: * Lifestyle changes encouraged not only for weight control, but also for tighter glucose control to ensure healing. * Diabetic diet (5) Peripheral neuropathy, idiopathic: Code(s): G60.9 - Hereditary and idiopathic neuropathy, unspecified Status: Chronic Assessment and Plan: * Most likely consistent with Diabetic PN. * Tight Glucose control needed. (6) HTN (hypertension), benign: Code(s): I10 - Essential (primary) hypertension Status: Chronic Assessment and Plan: * Continue lisinopril and Aldactone. * BP well controlled. (7) Mixed hyperlipidemia: Code(s): E78.2 - Mixed hyperlipidemia Status: Chronic Assessment and Plan: * Continue Statin. Plan Continue IV abx for now as we follow blood cultures. Time Spent With Patient Time with patient: 25 - 35 minutes Subjective Date/time seen: 12/10/23 10:35 Interval history: This very pleasant male pt was examined at the bedside today in interval assessment since being admitted for cellulitis of the RLE stump in the setting of an existing BKA. He remains on Vancomycin and Cefepime at this time. Pt states he has no pain and he has no other acute complaints. He is not meeting Sepsis criteria. Review of Systems Review of Systems: stump swelling, redness, tenderness. Small blister noted on stump. All systems reviewed & are unremarkable except as noted in HPI and below Exam Narrative: CONSTITUTIONAL: Pleasant, male pt sitting in bed and in no acute distress. HEENT: Head is atraumatic and normocephalic. Patent oropharynx and MMM. EYES: Non-icteric, PERRLA, EOMs intact NECK: FROM in supple manner, No LN RESPIRATORY: CTAB in all brewer CARDIAC: RRR, S1 and S2. No S3, S4, m,r,g,h or displacement of PMI CHEST: non tender to palpation GI: Soft, NTTP, BS+x4 : Deferred SKIN: Right stump with erythema, redness and mild edema. Outline present and there is no extension beyond the outlined area. NEURO: Non-focal exam EXTREMITIES: As noted in Skin exam. Otherwise with FROM actively. Right AKA. PSYCH: A&Ox4 Const: General: comfortable, no acute distress, well developed, alert, awake, average body habitus and obese Nutritional Appearance: average body habitus and obese Orientation/consciousness: patient oriented x3 HENMT: Head: normal to inspection, normocephalic and atraumatic Ears: hearing grossly normal bilaterally Face/Nose/Sinus: normal facial exam Face and sinus: normal facial exam Eyes: General: appearance normal, both eyes and all related structures Pupils: Equal, round and reactive pupils present EOM: EOMs intact bilaterally Neck: Neck: full ROM, no lymphadenopathy and no JVD Thyroid: thyroid normal Lymphatic: no lymphadenopathy noted Resp: Effort & Inspection: normal respiratory effort and able to speak in complete sentences Auscultation: clear to auscultation bilaterally Cardio: Jugular venous distension: no JVD Rate: regular rate Rhythm: regular rhythm Heart sounds: S1 normal heart sound present and S2 normal hea rt sound present : General: Yes deferred Skin: General skin exam: wounds noted ( R stump) Rashes: no rashes Wounds: no wounds and wounds noted ( R stump) Neuro: General: patient oriented x3, CN's II-XI intact bilaterally and Unable to assess gait Cranial nerves: Yes CN's II-XII intact bilaterally and Yes Equal, round and reactive pupils present Cognition (Neuro): normal cognition Speech: normal speech Gait exam (Neuro): Normal gait present and Unable to assess gait Motor exam (neuro): 5/5 motor strength present throughout Extrem: General: normal to inspection, full ROM, no joint enlargement and no pedal edema Other: RIGHT BKA STUMP WITH REDNESS OPEN WOUND Objective Data Vital Signs Vital Signs: Vital Signs - 24 hr 12/09/23 22:00 12/10/23 06:00 12/10/23 14:00 Temperature 98.4 F 97.8 F 98.1 F Pulse Rate 93 76 76 Respiratory Rate 18 18 20 Blood Pressure 120/59 L 118/60 117/60 Pulse Oximetry 95 98 97 Intake/Output Intake/Output: Intake & Output 12/07/23 12/08/23 12/09/23 12/10/23 23:59 23:59 23:59 23:59 Intake Total 550 1680 1670 Output Total 1250 2299 Balance 550 430 -629 Meds/Results Medications: Active Medications Generic Name Dose Route Start Last Admin Trade Name Freq PRN Reason Stop Dose Admin Acetaminophen 1,000 mg 12/09/23 01:47 12/10/23 14:22 Acetaminophen 500 Mg Tablet PO 1,000 mg Q6H PRN Administration Mild Pain (1-3) or Fever Aspirin 81 mg 12/09/23 09:00 12/10/23 08:20 Aspirin 81 Mg Enteric Tablet PO 81 mg DAILY ТАТЬЯНА Administration Atorvastatin Calcium 10 mg 12/09/23 21:00 12/09/23 21:28 Atorvastatin 10 Mg Tablet PO 10 mg QHS ТАТЬЯНА Administration Dextrose 12.5 gm 12/09/23 10:30 Dextrose 50% 25 Gm/50 Ml Syringe IV PUSH PRN PRN Hypoglycemia Protocol Empagliflozin 10 mg 12/09/23 09:00 12/10/23 08:20 Empagliflozin 10 Mg Tablet PO 10 mg DAILY ТАТЬЯНА Administration Glucagon 1 mg 12/09/23 10:30 Glucagon For Inj 1 Mg Vial IM PRN PRN Hypoglycemia Protocol Glucose 15 gm 12/09/23 10:30 Glucose Oral Gel 15 Gm Of Glucse In 37.5 Gm Tube PO PRN PRN Hypoglycemia Protocol Hydromorphone HCl 1 mg 12/09/23 01:47 Hydromorphone Hcl Inj (*Crx) 1 Mg/Ml Syr IV PUSH Q3H PRN Pain Rated 7-10 Vancomycin HCl 1,500 mg in 500 mls @ 250 mls/hr 12/09/23 10:00 12/10/23 13:02 Vancomycin 1,500 Mg/Ns 500 Ml IVPB Infused Q12H ТАТЬЯНА Infusion Cefepime HCl 2 gm in 50 mls @ 100 mls/hr 12/09/23 11:00 12/10/23 18:15 Maxipime 2 Gm/Ns 50 Ml IVPB 100 mls/hr Q8H ТАТЬЯНА Administration Dextrose 1,000 mls @ 100 mls/hr 12/09/23 10:30 Dextrose 5% 1,000 Ml IVPB PRN PRN Hypoglycemia Protocol Insulin Aspart 2 - 5 units 12/09/23 12:00 12/10/23 16:48 Insulin Aspart (*Bkc) 100 Units/Ml SUB-Q Not Given TIDWM ТАТЬЯНА Protocol Lisinopril 10 mg 12/09/23 09:00 12/10/23 08:20 Lisinopril 10 Mg Tablet PO 10 mg DAILY ТАТЬЯНА Administration Loratadine 10 mg 12/09/23 09:00 12/10/23 08:20 Loratadine 10 Mg Tablet PO 01/08/24 08:59 10 mg DAILY ТАТЬЯНА Administration Ondansetron HCl 4 mg 12/09/23 01:47 Ondansetron Inj 4 Mg/2 Ml Vial IV PUSH Q6H PRN Nausea And Vomiting Sertraline HCl 100 mg 12/09/23 09:00 12/10/23 08:20 Sertraline Hcl 50 Mg Tablet PO 100 mg DAILY ТАТЬЯНА Administration Spironolactone 50 mg 12/09/23 09:00 12/10/23 17:03 Spironolactone 50 Mg Tablet PO 50 mg BID ТАТЬЯНА Administration Tamsulosin HCl 0.4 mg 12/09/23 09:00 12/10/23 08:20 Tamsulosin Hcl 0.4 Mg Capsule PO 0.4 mg DAILY ТАТЬЯНА Administration Radiology Results: ITS Impressions Knee X-Ray 12/08/23 19:56 IMPRESSION: 1. Right srgda-dxz-ergx amputation with smooth osteotomy margins with no cortical erosion/osteolysis to suggest osteomyelitis. Labs Labs: Laboratory Results - last 24 hr 12/10/23 12/10/23 12/10/23 05:51 07:47 08:46 WBC 9.1 RBC 4.02 L Hgb 11.3 L Hct 35.4 L MCV 88.1 MCH 28.1 MCHC 31.9 L RDW 15.4 H Plt Count 206 MPV 9.3 Immature Gran % (Auto) 0.5 Neut % (Auto) 75.3 H Lymph % (Auto) 12.7 L [place] % (Auto) 8.9 H Eos % (Auto) 2.3 Baso % (Auto) 0.3 Lymph # (Auto) 1.16 [place] # (Auto) 0.8 H Eos # (Auto) 0.2 Baso # (Auto) 0.0 Abs Immat Gran (auto) 0.05 H Absolute Neuts (auto) 6.9 H Absolute Nucleated RBC 0.000 Nucleated RBC % 0.0 Sodium 138 Potassium 4.4 Chloride 105 Carbon Dioxide 22 Anion Gap 11 BUN 27 H Creatinine 1.00 Estim Creat Clear Calc 88 Estimated GFR > 60 Glucose 115 H POC Capillary Glucose 106 H Calcium 9.1 Magnesium 2.2 Total Bilirubin 0.5 AST 17 ALT 16 Alkaline Phosphatase 57 Total Protein 7.0 Albumin 3.7 Vancomycin Trough 13.6 12/10/23 12/10/23 11:45 16:41 WBC RBC Hgb Hct MCV MCH MCHC RDW Plt Count MPV Immature Gran % (Auto) Neut % (Auto) Lymph % (Auto) [place] % (Auto) Eos % (Auto) Baso % (Auto) Lymph # (Auto) [place] # (Auto) Eos # (Auto) Baso # (Auto) Abs Immat Gran (auto) Absolute Neuts (auto) Absolute Nucleated RBC Nucleated RBC % Sodium Potassium Chloride Carbon Dioxide Anion Gap BUN Creatinine Estim Creat Clear Calc Estimated GFR Glucose POC Capillary Glucose 107 H 91 Calcium Magnesium Total Bilirubin AST ALT Alkaline Phosphatase Total Protein Albumin Vancomycin Trough Quality VTE Prophylaxis VTE prophylaxis: mechanical ordered Hospitalist MIPS Advance Care Plan I have confirmed that the patient's Advanced Care Plan is present, code status is documented, or surrogate decision maker is listed in patient medical record.: Yes Medication Reconciliation I have utilized all available resources to obtain, update and review the patients current medications (includes all prescriptions, OTC, herbals, cannabis, and nutritional supplements).: Yes
[2023-12-10 20:31] LABS: Glucose Point of Care 125 mg/dl (65-105)
[2023-12-10] MEDS: ATORVASTATIN 10 MG TABLET PO (21:30)
[2023-12-10] MEDS: VANCOMYCIN 1,500 MG/NS 500 ML 1,500 MG/500 ML BAG 150 MG IVPB (21:34)
[2023-12-10 22:00] VITALS: BP 127/68; PULSE 89; RESP 18; TEMP 36.9; O2SAT 96
[2023-12-11] MEDS: CEFEPIME 2 GM/NS 50 ML 2 GM/50 ML BAG IVPB ×3 (04:08→18:23)
[2023-12-11 05:23] LABS: Basophils Percent Auto 0.4 % (0.2-1.2); Eosinophils Absolute Auto 0.2 K/mm3 (0-0.3); Eosinophils Percent Auto 1.9 % (0-4.4); Hematocrit 34.3 % (42.0-52.0); Immature Granulocyte Absolute 0.07 K/mm3 (0.00-0.031); Immature Granulocyte Percent A 0.7 % (0-0.5); Lymphocytes Absolute Auto 0.99 K/mm3 (0.9-3.2); Lymphocytes Percent Auto 10.3 % (18.3-44.2); Mean Corpuscular HGB Conc 32.1 g/dl (32-36); Mean Corpuscular Volume 87.3 fl (80-100); Mean Platelet Volume 9.1 fl (7.4-10.4); Monocytes Absolute Auto 0.8 K/mm3 (0.1-0.6); Monocytes Percent Auto 8.5 % (2.6-8.5); Neutrophils Absolute Auto 7.5 K/mm3 (1.3-6.7); Neutrophils Percent Auto 78.2 % (45.5-73.1); Platelet Count Result 201 k/mm3 (150-375); Red Blood Count 3.93 M/mm3 (4.6-6.20); Red Cell Distribution Width 15.1 % (11.5-14.5); White Blood Count 9.6 K/mm3 (4.5-10.0)
[2023-12-11 05:36] LABS: Alanine Aminotransferase 23 U/L (6-50); Albumin Level 3.5 g/dL (3.5-5.1); Alkaline Phosphatase 63 U/L (38-126); Anion Gap 8 mmol/L (4-12); Aspartate Amino Transferase 19 U/L (17-59); Bilirubin,Total 0.5 mg/dL (0.2-1.3); Blood Urea Nitrogen 25 mg/dL (9-20); Calcium 8.9 mg/dL (8.4-10.2); Carbon Dioxide 22 mmol/L (22-30); Chloride 106 mmol/L (98-107); Estimated CRCL calculation 97 ml/min; Estimated Glomerular Filt Rate > 60; Glucose 124 mg/dL (65-110); Magnesium 2.1 mg/dL (1.6-2.3); Potassium 4.6 mmol/L (3.4-5.0); Sodium 136 mmol/L (137-145)
[2023-12-11 05:58] VITALS: BP 127/68; PULSE 89; RESP 18; TEMP 36.9; O2SAT 96
[2023-12-11 07:48] LABS: Glucose Point of Care 132 mg/dl (65-105)
[2023-12-11] MEDS: TAMSULOSIN HCL 0.4 MG CAPSULE PO (08:12)
[2023-12-11] MEDS: ASPIRIN 81 MG ENTERIC TABLET PO (08:12)
[2023-12-11] MEDS: LORATADINE 10 MG TABLET PO (08:12)
[2023-12-11] MEDS: lisinopriL 10 MG TABLET PO (08:12)
[2023-12-11] MEDS: SERTRALINE HCL 50 MG TABLET 100 MG PO (08:12)
[2023-12-11] MEDS: SPIRONOLACTONE 50 MG TABLET PO ×2 (08:12→17:17)
[2023-12-11] MEDS: EMPAGLIFLOZIN 10 MG TABLET PO (08:12)
[2023-12-11] MEDS: VANCOMYCIN 1,500 MG/NS 500 ML 1,500 MG/500 ML BAG 175 MG IVPB ×2 (10:53→21:43)
--- NOTE | 2023-12-11 11:07 | P.PNIM_ITS ---
Progress Note: A&P Assessment and Plan (1) Right BKA infection: Code(s): T87.43 - Infection of amputation stump, right lower extremity Status: Acute Assessment and Plan: * Continue Vancomycin and Cephalexin for now. * Continue to trend labs and VS. * Wound culture growing Staph Aureus. * Blood cultures NGTD. * XR RLE without any s/s of Osteomyelitis. * CT RLE ordered to ruleout osteo and possible drainable abscess. (2) Cellulitis of right lower limb: Code(s): L03.115 - Cellulitis of right lower limb Status: Acute Assessment and Plan: * See #1 above. (3) Diabetes mellitus: Qualifiers: Diabetes mellitus complication detail: with foot ulcer Diabetes mellitus complication status: with skin complications Diabetes mellitus adjunct faculty for medical terminology insulin use: without assisted use Diabetes mellitus type: type 2 Qualified Code(s): E11.621 - Type 2 diabetes mellitus with foot ulcer; L97.509 - Non-pressure chronic ulcer of other part of unspecified foot with unspecified severity Code(s): E11.9 - Type 2 diabetes mellitus without complications Status: Chronic Assessment and Plan: * A1c 6 on this admission. * Continue SSI low dose mealtimes. * Hypoglycemic protocol * Carb controlled diet. * Continue Jardiance. * Adjust meds as needed. (4) Obesity: Qualifiers: Obesity type: due to excess calories Obesity classification: adult class 3 (BMI >= 40) Serious obesity comorbidity presence: with serious comorbidity Body mass index: BMI 40.0-44.9 Qualified Code(s): E66.01 - Morbid (severe) obesity due to excess calories; Z68.41 - Body mass index [BMI]40.0- 44.9, adult Code(s): E66.9 - Obesity, unspecified Status: Chronic Assessment and Plan: * Lifestyle changes encouraged. * Diabetic diet and heart healthy diet. (5) Peripheral neuropathy, idiopathic: Code(s): G60.9 - Hereditary and idiopathic neuropathy, unspecified Status: Chronic Assessment and Plan: * Most likely consistent with Diabetic PN. * Tight Glucose control needed. (6) HTN (hypertension), benign: Code(s): I10 - Essential (primary) hypertension Status: Chronic Assessment and Plan: * Continue lisinopril and Aldactone. * BP well controlled. (7) Mixed hyperlipidemia: Code(s): E78.2 - Mixed hyperlipidemia Status: Chronic Assessment and Plan: * Continue Statin. Plan Continue IV abx for now as we follow blood cultures. CT RLE to rule-out possible drainable abscess. Time Spent With Patient Time with patient: 25 - 35 minutes Subjective Date/time seen: 12/11/23 09:07 Interval history: This very pleasant male pt was examined at the bedside today in interval assessment since being admitted for cellulitis of the RLE stump in the setting of an existing BKA. Currently on Vancomycin and Cephalexin. Denies pain and has no other acute complaints. He is not meeting Sepsis criteria. Review of Systems Review of Systems: stump swelling, redness, tenderness. Small blister noted on stump. All systems reviewed & are unremarkable except as noted in HPI and below Exam Narrative: CONSTITUTIONAL: Pleasant, male pt sitting in bed and in no acute distress. HEENT: Head is atraumatic and normocephalic. Patent oropharynx and MMM. EYES: Non-icteric, PERRLA, EOMs intact NECK: FROM in supple manner, No LN RESPIRATORY: CTAB in all brewer CARDIAC: RRR, S1 and S2. No S3, S4, m,r,g,h or displacement of PMI CHEST: non tender to palpation GI: Soft, NTTP, BS+x4 : Deferred SKIN: Right stump with erythema, redness and mod edema. Outline present and there is no extension beyond the outlined area. Patient reports some improvement in tightness. Denies fevers. NEURO: Well oriented. CN II-XII grossly intact. EXTREMITIES: As noted in Skin exam. Otherwise with ROM actively. Right AKA. PSYCH: A&Ox4 Const: General: comfortable, no acute distress, well developed, alert, awake, average body habitus and obese Nutritional Appearance: average body habitus and obese Orientation/consciousness: patient oriented x3 HENMT: Head: normal to inspection, normocephalic and atraumatic Ears: hearing grossly normal bilaterally Face/Nose/Sinus: normal facial exam Face and sinus: normal facial exam Eyes: General: appearance normal, both eyes and all related structures Pupils: Equal, round and reactive pupils present EOM: EOMs intact bilaterally Neck: Neck: full ROM, no lymphadenopathy and no JVD Thyroid: thyroid normal Lymphatic: no lymphadenopathy noted Resp: Effort & Inspection: normal respiratory effort and able to speak in complete sentences Auscultation: clear to auscultation bilaterally Cardio: Jugular venous distension: no JVD Rate: regular rate Rhythm: regular rhythm Heart sounds: S1 normal heart sound present and S2 normal heart sound present : General: Yes deferred Skin: General skin exam: wounds noted ( R stump) Rashes: no rashes Wounds: no wounds and wounds noted ( R stump) Neuro: General: patient oriented x3, CN's II-XI intact bilaterally and Unable to assess gait Cranial nerves: Yes CN's II-XII intact bilaterally and Yes Equal, round and reactive pupils present Cognition (Neuro): normal cognition Speech: normal speech Gait exam (Neuro): Normal gait present and Unable to assess gait Motor exam (neuro): 5/5 motor strength present throughout Extrem: General: normal to inspection, full ROM, no joint enlargement and no pedal edema Other: RIGHT BKA STUMP WITH REDNESS OPEN WOUND Objective Data Vital Signs Vital Signs: Vital Signs - 24 hr 12/10/23 14:00 12/10/23 22:00 12/11/23 05:58 Temperature 98.1 F 98.4 F 98.4 F Pulse Rate 76 89 89 Respiratory Rate 20 18 18 Blood Pressure 117/60 127/68 127/68 Pulse Oximetry 97 96 96 Intake/Output Intake/Output: Intake & Output 12/08/23 12/09/23 12/10/23 12/11/23 23:59 23:59 23:59 23:59 Intake Total 550 1680 1720 600 Output Total 1250 2524 1500 Balance 550 468 -831 -805 Meds/Results Medications: Active Medications Generic Name Dose Route Start Last Admin Trade Name Charlesq PRN Reason Stop Dose Admin Acetaminophen 1,000 mg 12/09/23 01:47 12/10/23 21:29 Acetaminophen 500 Mg Tablet PO 1,000 mg Q6H PRN Administration Mild Pain (1-3) or Fever Aspirin 81 mg 12/09/23 09:00 12/11/23 08:12 Aspirin 81 Mg Enteric Tablet PO 81 mg DAILY ТАТЬЯНА Administration Atorvastatin Calcium 10 mg 12/09/23 21:00 12/10/23 21:30 Atorvastatin 10 Mg Tablet PO 10 mg QHS ТАТЬЯНА Administration Dextrose 12.5 gm 12/09/23 10:30 Dextrose 50% 25 Gm/50 Ml Syringe IV PUSH PRN PRN Hypoglycemia Protocol Empagliflozin 10 mg 12/09/23 09:00 12/11/23 08:12 Empagliflozin 10 Mg Tablet PO 10 mg DAILY ТАТЬЯНА Administration Glucagon 1 mg 12/09/23 10:30 Glucagon For Inj 1 Mg Vial IM PRN PRN Hypoglycemia Protocol Glucose 15 gm 12/09/23 10:30 Glucose Oral Gel 15 Gm Of Glucse In 37.5 Gm Tube PO PRN PRN Hypoglycemia Protocol Hydromorphone HCl 1 mg 12/09/23 01:47 Hydromorphone Hcl Inj (*Crx) 1 Mg/Ml Syr IV PUSH Q3H PRN Pain Rated 7-10 Vancomycin HCl 1,500 mg in 500 mls @ 250 mls/hr 12/09/23 10:00 12/11/23 10:53 Vancomycin 1,500 Mg/Ns 500 Ml IVPB 175 mls/hr Q12H ТАТЬЯНА Administration Cefepime HCl 2 gm in 50 mls @ 100 mls/hr 12/09/23 11:00 12/11/23 10:33 Maxipime 2 Gm/Ns 50 Ml IVPB Infused Q8H ТАТЬЯНА Infusion Dextrose 1,000 mls @ 100 mls/hr 12/09/23 10:30 Dextrose 5% 1,000 Ml IVPB PRN PRN Hypoglycemia Protocol Insulin Aspart 2 - 5 units 12/09/23 12:00 12/11/23 08:00 Insulin Aspart (*Bkc) 100 Units/Ml SUB-Q Not Given TIDWM ТАТЬЯНА Protocol Lisinopril 10 mg 12/09/23 09:00 12/11/23 08:12 Lisinopril 10 Mg Tablet PO 10 mg DAILY ТАТЬЯНА Administration Loratadine 10 mg 12/09/23 09:00 12/11/23 08:12 Loratadine 10 Mg Tablet PO 01/08/24 08:59 10 mg DAILY ТАТЬЯНА Administration Ondansetron HCl 4 mg 12/09/23 01:47 Ondansetron Inj 4 Mg/2 Ml Vial IV PUSH Q6H PRN Nausea And Vomiting Sertraline HCl 100 mg 12/09/23 09:00 12/11/23 08:12 Sertraline Hcl 50 Mg Tablet PO 100 mg DAILY ТАТЬЯНА Administration Spironolactone 50 mg 12/09/23 09:00 12/11/23 08:12 Spironolactone 50 Mg Tablet PO 50 mg BID ТАТЬЯНА Administration Tamsulosin HCl 0.4 mg 12/09/23 09:00 12/11/23 08:12 Tamsulosin Hcl 0.4 Mg Capsule PO 0.4 mg DAILY ТАТЬЯНА Administration Radiology Results: ITS Impressions Knee X-Ray 12/08/23 19:56 IMPRESSION: 1. Right [id number] amputation with smooth osteotomy margins with no cortical erosion/osteolysis to suggest osteomyelitis. Labs Labs: Laboratory Results - last 24 hr 12/10/23 12/10/23 12/10/23 11:45 16:41 20:25 WBC RBC Hgb Hct MCV MCH MCHC RDW Plt Count MPV Immature Gran % (Auto) Neut % (Auto) Lymph % (Auto) [place] % (Auto) Eos % (Auto) Baso % (Auto) Lymph # (Auto) [place] # (Auto) Eos # (Auto) Baso # (Auto) Abs Immat Gran (auto) Absolute Neuts (auto) Absolute Nucleated RBC Nucleated RBC % Sodium Potassium Chloride Carbon Dioxide Anion Gap BUN Creatinine Estim Creat Clear Calc Estimated GFR Glucose POC Capillary Glucose 107 H 91 125 H Calcium Magnesium Total Bilirubin AST ALT Alkaline Phosphatase Total Protein Albumin 12/11/23 12/11/23 05:17 07:43 WBC 9.6 RBC 3.93 L Hgb 11.0 L Hct 34.3 L MCV 87.3 MCH 28.0 MCHC 32.1 RDW 15.1 H Plt Count 201 MPV 9.1 Immature Gran % (Auto) 0.7 H Neut % (Auto) 78.2 H Lymph % (Auto) 10.3 L [place] % (Auto) 8.5 Eos % (Auto) 1.9 Baso % (Auto) 0.4 Lymph # (Auto) 0.99 [place] # (Auto) 0.8 H Eos # (Auto) 0.2 Baso # (Auto) 0.0 Abs Immat Gran (auto) 0.07 H Absolute Neuts (auto) 7.5 H Absolute Nucleated RBC 0.000 Nucleated RBC % 0.0 Sodium 136 L Potassium 4.6 Chloride 106 Carbon Dioxide 22 Anion Gap 8 BUN 25 H Creatinine 0.90 Estim Creat Clear Calc 97 Estimated GFR > 60 Glucose 124 H POC Capillary Glucose 132 H Calcium 8.9 Magnesium 2.1 Total Bilirubin 0.5 AST 19 ALT 23 Alkaline Phosphatase 63 Total Protein 7.0 Albumin 3.5 Quality VTE Prophylaxis VTE prophylaxis: mechanical ordered Hospitalist [facility] Advance Care Plan I have confirmed that the patient's Advanced Care Plan is present, code status is documented, or surrogate decision maker is listed in patient medical record.: Yes Medication Reconciliation I have utilized all available resources to obtain, update and review the patients current medications (includes all prescriptions, OTC, herbals, cannabis, and nutritional supplements).: Yes
[2023-12-11 11:51] LABS: Glucose Point of Care 95 mg/dl (65-105)
[2023-12-11 13:42] VITALS: BP 112/59; PULSE 98; RESP 16; TEMP 36.7; O2SAT 98
[2023-12-11 16:46] LABS: Glucose Point of Care 110 mg/dl (65-105)
[2023-12-11] MEDS: ACETAMINOPHEN 500 MG TABLET 1000 MG PO (18:25)
[2023-12-11 21:12] LABS: Glucose Point of Care 123 mg/dl (65-105)
[2023-12-11] MEDS: ATORVASTATIN 10 MG TABLET PO (21:43)
[2023-12-11 21:44] VITALS: BP 106/68; PULSE 84; RESP 16; TEMP 36.5; O2SAT 96
[2023-12-11 22:45] VITALS: BP 104/61; PULSE 72; RESP 18; TEMP 36.5; O2SAT 98
[2023-12-12] MEDS: CEFEPIME 2 GM/NS 50 ML 2 GM/50 ML BAG IVPB ×3 (04:24→18:01)
[2023-12-12 05:34] VITALS: BP 112/64; PULSE 71; RESP 20; TEMP 36.6; O2SAT 98
[2023-12-12 06:19] LABS: Basophils Absolute Auto 0.1 K/mm3 (0.0-0.1); Basophils Percent Auto 0.8 % (0.2-1.2); Eosinophils Absolute Auto 0.2 K/mm3 (0-0.3); Eosinophils Percent Auto 2.8 % (0-4.4); Hematocrit 35.7 % (42.0-52.0); Hemoglobin 11.1 g/dL (14.0-18.0); Immature Granulocyte Absolute 0.29 K/mm3 (0.00-0.031); Immature Granulocyte Percent A 3.6 % (0-0.5); Lymphocytes Absolute Auto 1.04 K/mm3 (0.9-3.2); Mean Corpuscular HGB Conc 31.1 g/dl (32-36); Mean Corpuscular Hemoglobin 27.4 pg (26-34); Mean Corpuscular Volume 88.1 fl (80-100); Monocytes Absolute Auto 0.8 K/mm3 (0.1-0.6); Monocytes Percent Auto 9.4 % (2.6-8.5); Neutrophils Absolute Auto 5.6 K/mm3 (1.3-6.7); Neutrophils Percent Auto 70.4 % (45.5-73.1); Platelet Count Result 224 k/mm3 (150-375); Red Blood Count 4.05 M/mm3 (4.6-6.20)
[2023-12-12 06:28] LABS: Alanine Aminotransferase 25 U/L (6-50); Albumin Level 3.6 g/dL (3.5-5.1); Alkaline Phosphatase 57 U/L (38-126); Anion Gap 12 mmol/L (4-12); Aspartate Amino Transferase 18 U/L (17-59); Bilirubin,Total 0.5 mg/dL (0.2-1.3); Blood Urea Nitrogen 26 mg/dL (9-20); Calcium 8.9 mg/dL (8.4-10.2); Carbon Dioxide 21 mmol/L (22-30); Chloride 106 mmol/L (98-107); Estimated CRCL calculation 97 ml/min; Estimated Glomerular Filt Rate > 60; Glucose 122 mg/dL (65-110); Magnesium 2.2 mg/dL (1.6-2.3); Potassium 4.5 mmol/L (3.4-5.0); Sodium 139 mmol/L (137-145)
[2023-12-12 07:47] VITALS: BP 139/79; PULSE 75; RESP 18; TEMP 36.2; O2SAT 100
[2023-12-12 07:58] LABS: Glucose Point of Care 118 mg/dl (65-105)
[2023-12-12] MEDS: SPIRONOLACTONE 50 MG TABLET PO ×2 (08:00→17:03)
[2023-12-12] MEDS: LORATADINE 10 MG TABLET PO (08:00)
[2023-12-12] MEDS: EMPAGLIFLOZIN 10 MG TABLET PO (08:00)
[2023-12-12] MEDS: lisinopriL 10 MG TABLET PO (08:00)
[2023-12-12] MEDS: SERTRALINE HCL 50 MG TABLET 100 MG PO (08:00)
[2023-12-12] MEDS: ASPIRIN 81 MG ENTERIC TABLET PO (08:00)
[2023-12-12] MEDS: TAMSULOSIN HCL 0.4 MG CAPSULE PO (08:01)
[2023-12-12] MEDS: VANCOMYCIN 1,500 MG/NS 500 ML 1,500 MG/500 ML BAG 175 MG IVPB ×2 (10:10→21:59)
[2023-12-12 11:35] LABS: Glucose Point of Care 97 mg/dl (65-105)
--- NOTE | 2023-12-12 12:07 | P.PNIM_ITS ---
Progress Note: A&P Assessment and Plan (1) Right BKA infection: Code(s): T87.43 - Infection of amputation stump, right lower extremity Status: Acute Assessment and Plan: * Continue Vancomycin and Cephalexin. Clindamycin added. * No drainable abscess noted on CT of stump. * Continue to trend labs and VS. * Wound culture growing Staph Aureus. * Blood cultures NGTD. * XR RLE without any s/s of Osteomyelitis. (2) Cellulitis of right lower limb: Code(s): L03.115 - Cellulitis of right lower limb Status: Acute Assessment and Plan: * See #1 above. 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 * Continue SSI low dose mealtimes. * Hypoglycemic protocol * Carb controlled diet. * Continue Jardiance. * Adjust meds as needed. (4) Obesity: Qualifiers: Obesity type: due to excess calories Obesity classification: adult class 3 (BMI >= 40) Serious obesity comorbidity presence: with serious comorbidity Body mass index: BMI 40.0-44.9 Qualified Code(s): E66.01 - Morbid (severe) obesity due to excess calories; Z68.41 - Body mass index [BMI]40.0- 44.9, adult Code(s): E66.9 - Obesity, unspecified Status: Chronic Assessment and Plan: * Lifestyle changes encouraged. * Diabetic diet and heart healthy diet. (5) Peripheral neuropathy, idiopathic: Code(s): G60.9 - Hereditary and idiopathic neuropathy, unspecified Status: Chronic Assessment and Plan: * Most likely consistent with Diabetic PN. * Continue tight Glucose control. (6) HTN (hypertension), benign: Code(s): I10 - Essential (primary) hypertension Status: Chronic Assessment and Plan: * Continue lisinopril and Aldactone. * BP well controlled. (7) Mixed hyperlipidemia: Code(s): E78.2 - Mixed hyperlipidemia Status: Chronic Assessment and Plan: * Continue Statin. Plan Continue IV abx for now as we follow blood cultures. Time Spent With Patient Time with patient: 25 - 35 minutes Subjective Date/time seen: 12/12/23 10:07 Patient calm on bedrest and reports improvement in RLE stump tightness on infection site. States a lot of pus drained yesterday evening and night. Reports he's comfortable with no pain. Interval history: This very pleasant male pt was examined at the bedside today. Patient admitted for cellulitis of the RLE stump in the setting of an existing Right BKA. Currently on Vancomycin and Cefepime. Cefepime added. Denies pain and has no other acute complaints. He is not meeting Sepsis criteria. Review of Systems Review of Systems: stump swelling, redness, tenderness. Small blister noted on stump. All systems reviewed & are unremarkable except as noted in HPI and below Exam Narrative: CONSTITUTIONAL: Pleasant male sitting on bed and in no acute distress. HEENT: Atraumatic and normocephalic. Patent oropharynx and MMM. EYES: Non-icteric, PERRLA, EOMs intact NECK: FROM in supple manner, No LN RESPIRATORY: CTAB in all brewer CARDIAC: RRR, S1 and S2. No murmurs. CHEST: non tender to palpation GI: Soft, NTTP, BS+x4 : Deferred SKIN: Right stump with erythema, redness and mod edema. Open area with moderate yellowish drainage. Large amounts of yellow-brown drainage on dressing. Denies fevers. NEURO: Well oriented. CN II-XII grossly intact. EXTREMITIES: As noted in Skin exam. Otherwise with good ROM actively. Right AKA. PSYCH: A&Ox4 Const: General: comfortable, no acute distress, well developed, alert, awake, average body habitus and obese Nutritional Appearance: average body habitus and obese Orientation/consciousness: patient oriented x3 HENMT: Head: normal to inspection, normocephalic and atraumatic Ears: hearing grossly normal bilaterally Face/Nose/Sinus: normal facial exam Face and sinus: normal facial exam Eyes: General: appearance normal, both eyes and all related structures Pupils: Equal, round and reactive pupils present EOM: EOMs intact bilaterally Neck: Neck: full ROM, no lymphadenopathy and no JVD Thyroid: thyroid normal Lymphatic: no lymphadenopathy noted Resp: Effort & Inspection: normal respiratory effort and able to speak in complete sentences Auscultation: clear to auscultation bilaterally Cardio: Jugular venous distension: no JVD Rate: regular rate Rhythm: regular rhythm Heart sounds: S1 normal heart sound present and S2 normal heart sound present : General: Yes deferred Skin: General skin exam: wounds noted ( R stump) Rashes: no rashes Wounds: no wounds and wounds noted ( R stump) Neuro: General: patient oriented x3, CN's II-XI intact bilaterally and Unable to assess gait Cranial nerves: Yes CN's II-XII intact bilaterally and Yes Equal, round and reactive pupils present Cognition (Neuro): normal cognition Speech: normal speech Gait exam (Neuro): Normal gait present and Unable to assess gait Motor exam (neuro): 5/5 motor strength present throughout Extrem: General: normal to inspection, full ROM, no joint enlargement and no pedal edema Other: RIGHT BKA STUMP WITH REDNESS OPEN WOUND with yellow purulent drainage. Psych: Mental Status: mental status grossly normal Affect: normal affect Other: Pleasant and co-operative Objective Data Vital Signs Vital Signs: Vital Signs - 24 hr 12/11/23 13:42 12/11/23 21:44 12/11/23 22:45 Temperature 98.0 F 97.7 F 97.7 F Pulse Rate 98 84 72 Respiratory Rate 16 16 18 Blood Pressure 112/59 L 106/68 104/61 Pulse Oximetry 98 96 98 Oxygen Delivery 12/11/23 21:35 12/12/23 05:34 12/12/23 07:47 Temperature 97.9 F 97.1 F L Pulse Rate 71 75 Respiratory Rate 20 18 Blood Pressure 112/64 139/79 Pulse Oximetry 98 100 Oxygen Delivery Room Air 12/12/23 08:01 Temperature Pulse Rate Respiratory Rate Blood Pressure Pulse Oximetry Oxygen Delivery Room Air Intake/Output Intake/Output: Intake & Output 12/09/23 12/10/23 12/11/23 12/12/23 23:59 23:59 23:59 23:59 Intake Total 1680 1720 2420 870 Output Total 1250 2524 2250 1200 Balance 430 -804 170 -330 Meds/Results Medications: Active Medications Generic Name Dose Route Start Last Admin Trade Name Freq PRN Reason Stop Dose Admin Acetaminophen 1,000 mg 12/09/23 01:47 12/11/23 18:25 Acetaminophen 500 Mg Tablet PO 1,000 mg Q6H PRN Administration Mild Pain (1-3) or Fever Aspirin 81 mg 12/09/23 09:00 12/12/23 08:00 Aspirin 81 Mg Enteric Tablet PO 81 mg DAILY ТАТЬЯНА Administration Atorvastatin Calcium 10 mg 12/09/23 21:00 12/11/23 21:43 Atorvastatin 10 Mg Tablet PO 10 mg QHS ТАТЬЯНА Administration Dextrose 12.5 gm 12/09/23 10:30 Dextrose 50% 25 Gm/50 Ml Syringe IV PUSH PRN PRN Hypoglycemia Protocol Empagliflozin 10 mg 12/09/23 09:00 12/12/23 08:00 Empagliflozin 10 Mg Tablet PO 10 mg DAILY ТАТЬЯНА Administration Glucagon 1 mg 12/09/23 10:30 Glucagon For Inj 1 Mg Vial IM PRN PRN Hypoglycemia Protocol Glucose 15 gm 12/09/23 10:30 Glucose Oral Gel 15 Gm Of Glucse In 37.5 Gm Tube PO PRN PRN Hypoglycemia Protocol Hydromorphone HCl 1 mg 12/09/23 01:47 Hydromorphone Hcl Inj (*Crx) 1 Mg/Ml Syr IV PUSH Q3H PRN Pain Rated 7-10 Vancomycin HCl 1,500 mg in 500 mls @ 250 mls/hr 12/09/23 10:00 12/12/23 10:10 Vancomycin 1,500 Mg/Ns 500 Ml IVPB 175 mls/hr Q12H ТАТЬЯНА Administration Cefepime HCl 2 gm in 50 mls @ 100 mls/hr 12/09/23 11:00 12/12/23 04:54 Maxipime 2 Gm/Ns 50 Ml IVPB Infused Q8H ТАТЬЯНА Infusion Dextrose 1,000 mls @ 100 mls/hr 12/09/23 10:30 Dextrose 5% 1,000 Ml IVPB PRN PRN Hypoglycemia Protocol Insulin Aspart 2 - 5 units 12/09/23 12:00 12/12/23 12:01 Insulin Aspart (*Bkc) 100 Units/Ml SUB-Q Not Given TIDWM [facility] Protocol Lisinopril 10 mg 12/09/23 09:00 12/12/23 08:00 Lisinopril 10 Mg Tablet PO 10 mg DAILY ТАТЬЯНА Administration Loratadine 10 mg 12/09/23 09:00 12/12/23 08:00 Loratadine 10 Mg Tablet PO 01/08/24 08:59 10 mg DAILY ТАТЬЯНА Administration Ondansetron HCl 4 mg 12/09/23 01:47 Ondansetron Inj 4 Mg/2 Ml Vial IV PUSH Q6H PRN Nausea And Vomiting Sertraline HCl 100 mg 12/09/23 09:00 12/12/23 08:00 Sertraline Hcl 50 Mg Tablet PO 100 mg DAILY ТАТЬЯНА Administration Spironolactone 50 mg 12/09/23 09:00 12/12/23 08:00 Spironolactone 50 Mg Tablet PO 50 mg BID ТАТЬЯНА Administration Tamsulosin HCl 0.4 mg 12/09/23 09:00 12/12/23 08:01 Tamsulosin Hcl 0.4 Mg Capsule PO 0.4 mg DAILY ТАТЬЯНА Administration Radiology Results: ITS Impressions Knee X-Ray 12/08/23 19:56 IMPRESSION: 1. Right [id number] amputation with smooth osteotomy margins with no cortical erosion/osteolysis to suggest osteomyelitis. Lower Extremity CT 12/11/23 19:48 IMPRESSION: Multiple nonspecific loculated fluid collections along the anteromedial aspect of the proximal lower leg; definitive diagnosis includes edema, seroma, abscess. The multiloculated nature of the collections would probably limit effectiveness of attempted drainage, but aspiration could be performed from this area for diagnostic purposes. Edema of the right lower extremity at and below the knee Status post below knee amputation Three-phase radionuclide bone would be more sensitive for detection of osteomyelitis. Labs Labs: Laboratory Results - last 24 hr 12/11/23 12/11/23 12/12/23 16:43 21:03 06:06 WBC 8.0 RBC 4.05 L Hgb 11.1 L Hct 35.7 L MCV 88.1 MCH 27.4 MCHC 31.1 L RDW 15.0 H Plt Count 224 MPV 9.0 Immature Gran % (Auto) 3.6 H Neut % (Auto) 70.4 Lymph % (Auto) 13.0 L [place] % (Auto) 9.4 H Eos % (Auto) 2.8 Baso % (Auto) 0.8 Lymph # (Auto) 1.04 [place] # (Auto) 0.8 H Eos # (Auto) 0.2 Baso # (Auto) 0.1 Abs Immat Gran (auto) 0.29 H Absolute Neuts (auto) 5.6 Absolute Nucleated RBC 0.000 Nucleated RBC % 0.0 Sodium 139 Potassium 4.5 Chloride 106 Carbon Dioxide 21 L Anion Gap 12 BUN 26 H Creatinine 0.90 Estim Creat Clear Calc 97 Estimated GFR > 60 Glucose 122 H POC Capillary Glucose 110 H 123 H Calcium 8.9 Magnesium 2.2 Total Bilirubin 0.5 AST 18 ALT 25 Alkaline Phosphatase 57 Total Protein 7.0 Albumin 3.6 12/12/23 12/12/23 07:55 11:28 WBC RBC Hgb Hct MCV MCH MCHC RDW Plt Count MPV Immature Gran % (Auto) Neut % (Auto) Lymph % (Auto) [place] % (Auto) Eos % (Auto) Baso % (Auto) Lymph # (Auto) [place] # (Auto) Eos # (Auto) Baso # (Auto) Abs Immat Gran (auto) Absolute Neuts (auto) Absolute Nucleated RBC Nucleated RBC % Sodium Potassium Chloride Carbon Dioxide Anion Gap BUN Creatinine Estim Creat Clear Calc Estimated GFR Glucose POC Capillary Glucose 118 H 97 Calcium Magnesium Total Bilirubin AST ALT Alkaline Phosphatase Total Protein Albumin Quality VTE Prophylaxis VTE prophylaxis: mechanical ordered Hospitalist [facility] Advance Care Plan I have confirmed that the patient's Advanced Care Plan is present, code status is documented, or surrogate decision maker is listed in patient medical record.: Yes Medication Reconciliation I have utilized all available resources to obtain, update and review the patients current medications (includes all prescriptions, OTC, herbals, canna bis, and nutritional supplements).: Yes
[2023-12-12] MEDS: SACCHAROMYCES BOULARDII 250 MG CAPSULE PO ×2 (13:07→17:04)
[2023-12-12] MEDS: CLINDAMYCIN HCL 150 MG CAP 300 MG PO ×2 (13:07→21:44)
[2023-12-12 14:00] VITALS: BP 103/61; PULSE 80; RESP 18; TEMP 36.6; O2SAT 97
[2023-12-12 16:48] LABS: Glucose Point of Care 108 mg/dl (65-105)
[2023-12-12] MEDS: ACETAMINOPHEN 500 MG TABLET 1000 MG PO (19:54)
[2023-12-12 20:45] VITALS: BP 121/65; PULSE 79; RESP 18; TEMP 36.5; O2SAT 97
[2023-12-12] MEDS: ATORVASTATIN 10 MG TABLET PO (21:43)
[2023-12-12 21:48] LABS: Glucose Point of Care 105 mg/dl (65-105)
[2023-12-12 22:40] VITALS: BP 114/60; PULSE 74; RESP 18; TEMP 36.7; O2SAT 98
[2023-12-13 05:55] VITALS: BP 116/67; PULSE 68; RESP 20; TEMP 36.6; O2SAT 100
[2023-12-13 06:17] LABS: Basophils Absolute Auto 0.1 K/mm3 (0.0-0.1); Basophils Percent Auto 1.3 % (0.2-1.2); Eosinophils Absolute Auto 0.2 K/mm3 (0-0.3); Eosinophils Percent Auto 3.1 % (0-4.4); Hematocrit 36.5 % (42.0-52.0); Hemoglobin 11.3 g/dL (14.0-18.0); Immature Granulocyte Absolute 0.51 K/mm3 (0.00-0.031); Immature Granulocyte Percent A 7.3 % (0-0.5); Lymphocytes Absolute Auto 1.27 K/mm3 (0.9-3.2); Lymphocytes Percent Auto 18.2 % (18.3-44.2); Mean Corpuscular Hemoglobin 27.4 pg (26-34); Mean Corpuscular Volume 88.4 fl (80-100); Monocytes Absolute Auto 0.6 K/mm3 (0.1-0.6); Monocytes Percent Auto 8.2 % (2.6-8.5); Neutrophils Absolute Auto 4.3 K/mm3 (1.3-6.7); Neutrophils Percent Auto 61.9 % (45.5-73.1); Platelet Count Result 230 k/mm3 (150-375); Red Blood Count 4.13 M/mm3 (4.6-6.20); Red Cell Distribution Width 14.7 % (11.5-14.5)
[2023-12-13 06:27] LABS: Alanine Aminotransferase 24 U/L (6-50); Albumin Level 3.5 g/dL (3.5-5.1); Alkaline Phosphatase 55 U/L (38-126); Anion Gap 11 mmol/L (4-12); Aspartate Amino Transferase 16 U/L (17-59); Bilirubin,Total 0.2 mg/dL (0.2-1.3); Blood Urea Nitrogen 26 mg/dL (9-20); Calcium 8.8 mg/dL (8.4-10.2); Carbon Dioxide 22 mmol/L (22-30); Chloride 107 mmol/L (98-107); Estimated CRCL calculation 97 ml/min; Estimated Glomerular Filt Rate > 60; Glucose 111 mg/dL (65-110); Magnesium 2.2 mg/dL (1.6-2.3); Potassium 4.2 mmol/L (3.4-5.0); Sodium 140 mmol/L (137-145)
[2023-12-13] MEDS: CEFEPIME 2 GM/NS 50 ML 2 GM/50 ML BAG IVPB (06:39)
[2023-12-13] MEDS: CLINDAMYCIN HCL 150 MG CAP 300 MG PO (06:39)
[2023-12-13 07:58] LABS: Glucose Point of Care 116 mg/dl (65-105)
[2023-12-13 07:59] VITALS: BP 114/69; PULSE 71; RESP 16; TEMP 36.2; O2SAT 100
[2023-12-13] MEDS: EMPAGLIFLOZIN 10 MG TABLET PO (08:03)
[2023-12-13] MEDS: ASPIRIN 81 MG ENTERIC TABLET PO (08:03)
[2023-12-13 08:04] VITALS: O2SAT 100
[2023-12-13] MEDS: lisinopriL 10 MG TABLET PO (08:04)
[2023-12-13] MEDS: SPIRONOLACTONE 50 MG TABLET PO ×2 (08:04→16:58)
[2023-12-13] MEDS: TAMSULOSIN HCL 0.4 MG CAPSULE PO (08:04)
[2023-12-13] MEDS: SACCHAROMYCES BOULARDII 250 MG CAPSULE PO ×3 (08:04→16:58)
[2023-12-13] MEDS: LORATADINE 10 MG TABLET PO (08:04)
[2023-12-13] MEDS: SERTRALINE HCL 50 MG TABLET 100 MG PO (08:04)
[2023-12-13 11:38] LABS: Glucose Point of Care 94 mg/dl (65-105)
--- NOTE | 2023-12-13 13:05 | P.PNIM_ITS ---
Progress Note: A&P Assessment and Plan (1) Right BKA infection: Code(s): T87.43 - Infection of amputation stump, right lower extremity Status: Acute Assessment and Plan: * Continue Vancomycin and Cephalexin. Clindamycin added. * No drainable abscess noted on CT of stump. * Continue to trend labs and VS. * Wound culture growing Staph Aureus. * Blood cultures NGTD. * XR RLE without any s/s of Osteomyelitis. 12/13/23: * Stop all abx of Cefepime, Cleocin, and Vancomycin * Start Ancef based off of culture results. * Continue to trend BC to completion. * Pt should be ok to discharge on oral abx for MSSA coverage when stable. * If any regression of progress made with infection thus far, consider IR drainage of loculated fluid collections. (2) Cellulitis of right lower limb: Code(s): L03.115 - Cellulitis of right lower limb Status: Acute Assessment and Plan: * See #1 above. (3) Diabetes mellitus: Qualifiers: Diabetes mellitus complication detail: with foot ulcer Diabetes mellitus complication status: with skin complications Diabetes mellitus termination clerk insulin use: without termination clerk use Diabetes mellitus type: type 2 Qualified Code(s): E11.621 - Type 2 diabetes mellitus with foot ulcer; L97.509 - Non-pressure chronic ulcer of other part of unspecified foot with unspecified severity Code(s): E11.9 - Type 2 diabetes mellitus without complications Status: Chronic Assessment and Plan: * A1c 6 on this admission. * Continue SSI low dose mealtimes. * Hypoglycemic protocol * Carb controlled diet. * Continue Jardiance. * Adjust meds as needed. (4) Obesity: Qualifiers: Obesity type: due to excess calories Obesity classification: adult class 3 (BMI >= 40) Serious obesity comorbidity presence: with serious comorbidity Body mass index: BMI 40.0-44.9 Qualified Code(s): E66.01 - Morbid (severe) obesity due to excess calories; Z68.41 - Body mass index [BMI]40.0- 44.9, adult Code(s): E66.9 - Obesity, unspecified Status: Chronic Assessment and Plan: * Lifestyle changes encouraged. * Diabetic diet and heart healthy diet. (5) Peripheral neuropathy, idiopathic: Code(s): G60.9 - Hereditary and idiopathic neuropathy, unspecified Status: Chronic Assessment and Plan: * Most likely consistent with Diabetic PN. * Continue tight Glucose control. (6) HTN (hypertension), benign: Code(s): I10 - Essential (primary) hypertension Status: Chronic Assessment and Plan: * Continue lisinopril and Aldactone. * BP well controlled. (7) Mixed hyperlipidemia: Code(s): E78.2 - Mixed hyperlipidemia Status: Chronic Assessment and Plan: * Continue Statin. Plan Continue IV abx for now as we follow blood cultures. Subjective Date/time seen: 12/13/23 1000 Interval history: This pt was examined at the bedside today in interval assessment since being admitted for infection and cellulitis of his RLE stump. His cultures have resulted and are positive for MSSA. Abx changed to Ancef. CT scan from 12/10 showing multiple loculated fluid collections of the anteromedial aspect of the proximal lower leg. He has continued drainage but has overall improvement in appearance and decreased redness and swelling. He reports improvement in overall pain as well. Blood cultures to this point are negative. Pt has no new complaints or concerns. Review of Systems Review of Systems: All systems reviewed & are unremarkable except as noted in HPI and below Exam Narrative: CONSTITUTIONAL: Pleasant male sitting on bed and in no acute distress. He reports interval improvement in overall condition. HEENT: Atraumatic and normocephalic. Patent oropharynx and MMM. EYES: Non-icteric, PERRLA, EOMs intact NECK: FROM in supple manner, No LN RESPIRATORY: CTAB in all brewer CARDIAC: RRR, S1 and S2. No murmurs. CHEST: non tender to palpation GI: Soft, NTTP, BS+x4 : Deferred SKIN: Right stump with minimal erythema, mild edema and active drainage of a yellow tinged serous drainage. . NEURO: Well oriented. CN II-XII grossly intact. EXTREMITIES: As noted in Skin exam. Otherwise with good ROM actively. Right BKA PSYCH: A&Ox4 Objective Data Vital Signs Vital Signs: Vital Signs - 24 hr 12/12/23 14:00 12/12/23 20:00 12/12/23 20:45 Temperature 97.9 F 97.7 F Pulse Rate 80 79 Respiratory Rate 18 18 Blood Pressure 103/61 121/65 Pulse Oximetry 97 97 Oxygen Delivery Room Air 12/12/23 22:40 12/13/23 05:55 12/13/23 07:59 Temperature 98.1 F 97.9 F 97.1 F L Pulse Rate 74 68 71 Respiratory Rate 18 20 16 Blood Pressure 114/60 116/67 114/69 Pulse Oximetry 98 100 100 Oxygen Delivery 12/13/23 08:04 Temperature Pulse Rate Respiratory Rate Blood Pressure Pulse Oximetry 100 Oxygen Delivery Room Air Intake/Output Intake/Output: Intake & Output 12/10/23 12/11/23 12/12/23 12/13/23 23:59 23:59 23:59 23:59 Intake Total 1720 2420 2410 100 Output Total 2524 2250 1751 1000 Balance -804 170 659 -900 Meds/Results Medications: Active Medications Generic Name Dose Route Start Last Admin Trade Name Freq PRN Reason Stop Dose Admin Acetaminophen 1,000 mg 12/09/23 01:47 12/12/23 19:54 Acetaminophen 500 Mg Tablet PO 1,000 mg Q6H PRN Administration Mild Pain (1-3) or Fever Aspirin 81 mg 12/09/23 09:00 12/13/23 08:03 Aspirin 81 Mg Enteric Tablet PO 81 mg DAILY ТАТЬЯНА Administration Atorvastatin Calcium 10 mg 12/09/23 21:00 12/12/23 21:43 Atorvastatin 10 Mg Tablet PO 10 mg QHS ТАТЬЯНА Administration Dextrose 12.5 gm 12/09/23 10:30 Dextrose 50% 25 Gm/50 Ml Syringe IV PUSH PRN PRN Hypoglycemia Protocol Empagliflozin 10 mg 12/09/23 09:00 12/13/23 08:03 Empagliflozin 10 Mg Tablet PO 10 mg DAILY ТАТЬЯНА Administration Glucagon 1 mg 12/09/23 10:30 Glucagon For Inj 1 Mg Vial IM PRN PRN Hypoglycemia Protocol Glucose 15 gm 12/09/23 10:30 Glucose Oral Gel 15 Gm Of Glucse In 37.5 Gm Tube PO PRN PRN Hypoglycemia Protocol Hydromorphone HCl 1 mg 12/09/23 01:47 Hydromorphone Hcl Inj (*Crx) 1 Mg/Ml Syr IV PUSH Q3H PRN Pain Rated 7-10 Dextrose 1,000 mls @ 100 mls/hr 12/09/23 10:30 Dextrose 5% 1,000 Ml IVPB PRN PRN Hypoglycemia Protocol Cefazolin Sodium 2 gm in 50 mls @ 100 mls/hr 12/13/23 14:00 Ancef 2 Gm/D5w 50 Ml IVPB Q8HR [facility] Insulin Aspart 2 - 5 units 12/09/23 12:00 12/13/23 12:21 Insulin Aspart (*Bkc) 100 Units/Ml SUB-Q Not Given TIDWM [facility] Protocol Lisinopril 10 mg 12/09/23 09:00 12/13/23 08:04 Lisinopril 10 Mg Tablet PO 10 mg DAILY ТАТЬЯНА Administration Loratadine 10 mg 12/09/23 09:00 12/13/23 08:04 Loratadine 10 Mg Tablet PO 01/08/24 08:59 10 mg DAILY ТАТЬЯНА Administration Ondansetron HCl 4 mg 12/09/23 01:47 Ondansetron Inj 4 Mg/2 Ml Vial IV PUSH Q6H PRN Nausea And Vomiting Saccharomyces Boulardii 250 mg 12/12/23 13:00 12/13/23 12:45 Saccharomyces Boulardii 250 Mg Capsule PO 250 mg TID ТАТЬЯНА Administration Sertraline HCl 100 mg 12/09/23 09:00 12/13/23 08:04 Sertraline Hcl 50 Mg Tablet PO 100 mg DAILY ТАТЬЯНА Administration Spironolactone 50 mg 12/09/23 09:00 12/13/23 08:04 Spironolactone 50 Mg Tablet PO 50 mg BID ТАТЬЯНА Administration Tamsulosin HCl 0.4 mg 12/09/23 09:00 12/13/23 08:04 Tamsulosin Hcl 0.4 Mg Capsule PO 0.4 mg DAILY ТАТЬЯНА Administration Radiology Results: ITS Impressions Knee X-Ray 12/08/23 19:56 IMPRESSION: 1. Right [id number] amputation with smooth osteotomy margins with no cortical erosion/osteolysis to suggest osteomyelitis. Lower Extremity CT 12/11/23 19:48 IMPRESSION: Multiple nonspecific loculated fluid collections along the anteromedial aspect of the proximal lower leg; definitive diagnosis includes edema, seroma, abscess. The multiloculated nature of the collections would probably limit effectiveness of attempted drainage, but aspiration could be performed from this area for diagnostic purposes. Edema of the right lower extremity at and below the knee Status post below knee amputation Three-phase radionuclide bone would be more sensitive for detection of osteomyelitis. Labs Labs: Laboratory Results - last 24 hr 12/12/23 12/12/23 12/13/23 16:44 21:45 05:48 WBC 7.0 RBC 4.13 L Hgb 11.3 L Hct 36.5 L MCV 88.4 MCH 27.4 MCHC 31.0 L RDW 14.7 H Plt Count 230 MPV 9.0 Immature Gran % (Auto) 7.3 H Neut % (Auto) 61.9 Lymph % (Auto) 18.2 L [place] % (Auto) 8.2 Eos % (Auto) 3.1 Baso % (Auto) 1.3 H Lymph # (Auto) 1.27 [place] # (Auto) 0.6 Eos # (Auto) 0.2 Baso # (Auto) 0.1 Abs Immat Gran (auto) 0.51 H Absolute Neuts (auto) 4.3 Absolute Nucleated RBC 0.000 Nucleated RBC % 0.0 Sodium 140 Potassium 4.2 Chloride 107 Carbon Dioxide 22 Anion Gap 11 BUN 26 H Creatinine 0.90 Estim Creat Clear Calc 97 Estimated GFR > 60 Glucose 111 H POC Capillary Glucose 108 H 105 Calcium 8.8 Magnesium 2.2 Total Bilirubin 0.2 AST 16 L ALT 24 Alkaline Phosphatase 55 Total Protein 7.0 Albumin 3.5 12/13/23 12/13/23 07:55 11:35 WBC RBC Hgb Hct MCV MCH MCHC RDW Plt Count MPV Immature Gran % (Auto) Neut % (Auto) Lymph % (Auto) [place] % (Auto) Eos % (Auto) Baso % (Auto) Lymph # (Auto) [place] # (Auto) Eos # (Auto) Baso # (Auto) Abs Immat Gran (auto) Absolute Neuts (auto) Absolute Nucleated RBC Nucleated RBC % Sodium Potassium Chloride Carbon Dioxide Anion Gap BUN Creatinine Estim Creat Clear Calc Estimated GFR Glucose POC Capillary Glucose 116 H 94 Calcium Magnesium Total Bilirubin AST ALT Alkaline Phosphatase Total Protein Albumin Quality VTE Prophylaxis VTE prophylaxis: mechanical ordered
[2023-12-13 14:00] VITALS: BP 122/66; PULSE 77; RESP 12; TEMP 36.8; O2SAT 97
[2023-12-13] MEDS: ceFAZolin 2 GM/D5W 50 ML 2 GM/50 ML BAG IVPB ×2 (15:14→20:28)
[2023-12-13 17:12] LABS: Glucose Point of Care 112 mg/dl (65-105)
[2023-12-13] MEDS: ATORVASTATIN 10 MG TABLET PO (20:27)
[2023-12-13 21:08] VITALS: BP 106/67; PULSE 88; RESP 18; TEMP 36.7; O2SAT 100
[2023-12-13 21:12] LABS: Glucose Point of Care 164 mg/dl (65-105)
[2023-12-14 05:20] VITALS: BP 120/78; PULSE 68; RESP 20; TEMP 36.6; O2SAT 97
[2023-12-14] MEDS: ceFAZolin 2 GM/D5W 50 ML 2 GM/50 ML BAG IVPB (06:19)
[2023-12-14 06:22] LABS: Basophils Absolute Auto 0.1 K/mm3 (0.0-0.1); Basophils Percent Auto 0.7 % (0.2-1.2); Eosinophils Absolute Auto 0.2 K/mm3 (0-0.3); Eosinophils Percent Auto 2.2 % (0-4.4); Hematocrit 36.9 % (42.0-52.0); Hemoglobin 11.8 g/dL (14.0-18.0); Immature Granulocyte Percent A 8.7 % (0-0.5); Lymphocytes Percent Auto 16.1 % (18.3-44.2); Mean Corpuscular Hemoglobin 28.1 pg (26-34); Mean Corpuscular Volume 87.9 fl (80-100); Monocytes Absolute Auto 0.7 K/mm3 (0.1-0.6); Monocytes Percent Auto 8.3 % (2.6-8.5); Neutrophils Absolute Auto 5.1 K/mm3 (1.3-6.7); Platelet Count Result 257 k/mm3 (150-375); Red Cell Distribution Width 14.6 % (11.5-14.5); White Blood Count 8.1 K/mm3 (4.5-10.0)
[2023-12-14 06:34] LABS: Alanine Aminotransferase 23 U/L (6-50); Albumin Level 3.7 g/dL (3.5-5.1); Alkaline Phosphatase 60 U/L (38-126); Anion Gap 12 mmol/L (4-12); Aspartate Amino Transferase 20 U/L (17-59); Bilirubin,Total 0.2 mg/dL (0.2-1.3); Blood Urea Nitrogen 23 mg/dL (9-20); Calcium 8.8 mg/dL (8.4-10.2); Carbon Dioxide 20 mmol/L (22-30); Chloride 108 mmol/L (98-107); Estimated CRCL calculation 109 ml/min; Estimated Glomerular Filt Rate > 60; Glucose 109 mg/dL (65-110); Magnesium 2.2 mg/dL (1.6-2.3); Potassium 4.5 mmol/L (3.4-5.0); Sodium 140 mmol/L (137-145)
[2023-12-14 07:50] LABS: Glucose Point of Care 105 mg/dl (65-105)
[2023-12-14] MEDS: TAMSULOSIN HCL 0.4 MG CAPSULE PO (08:42)
[2023-12-14] MEDS: SPIRONOLACTONE 50 MG TABLET PO (08:42)
[2023-12-14] MEDS: EMPAGLIFLOZIN 10 MG TABLET PO (08:42)
[2023-12-14] MEDS: SACCHAROMYCES BOULARDII 250 MG CAPSULE PO ×2 (08:42→12:34)
[2023-12-14] MEDS: SERTRALINE HCL 50 MG TABLET 100 MG PO (08:42)
[2023-12-14] MEDS: LORATADINE 10 MG TABLET PO (08:42)
[2023-12-14] MEDS: lisinopriL 10 MG TABLET PO (08:42)
[2023-12-14] MEDS: ASPIRIN 81 MG ENTERIC TABLET PO (08:42)
--- NOTE | 2023-12-14 09:48 | P.DS_ITS ---
DS: Admitting Diagnosis Discharge Date 12/14/23 Admitting Diagnosis right BKA infection cellulitis of right lower limb obesity peripheral neuropathy hypertension hyperlipidemia DS: Discharge Diagnosis Discharge Diagnosis (1) Right BKA infection: Code(s): T87.43 - Infection of amputation stump, right lower extremity Status: Acute (2) Cellulitis of right lower limb: Code(s): L03.115 - Cellulitis of right lower limb Status: Acute (3) Diabetes mellitus: Qualifiers: Diabetes mellitus complication detail: with foot ulcer Diabetes mellitus complication status: with skin complications Diabetes mellitus director long term care insulin use: without shelter use Diabetes mellitus type: type 2 Qualified Code(s): E11.621 - Type 2 diabetes mellitus with foot ulcer; L97.509 - Non-pressure chronic ulcer of other part of unspecified foot with unspecified severity Code(s): E11.9 - Type 2 diabetes mellitus without complications Status: Chronic (4) Obesity: Qualifiers: Body mass index: BMI 40.0-44.9 Obesity classification: adult class 3 (BMI >= 40) Obesity type: due to excess calories Serious obesity comorbidity presence: with serious comorbidity Qualified Code(s): E66.01 - Morbid (severe) obesity due to excess calories; Z68.41 - Body mass index [BMI]40.0-44.9, adult Code(s): E66.9 - Obesity, unspecified Status: Chronic (5) Peripheral neuropathy, idiopathic: Code(s): G60.9 - Hereditary and idiopathic neuropathy, unspecified Status: Chronic (6) HTN (hypertension), benign: Code(s): I10 - Essential (primary) hypertension Status: Chronic (7) Mixed hyperlipidemia: Code(s): E78.2 - Mixed hyperlipidemia Status: Chronic DS: Summary Hospital Course Reason for hospitalization: right BKA infection cellulitis of right lower limb obesity peripheral neuropathy hypertension hyperlipidemia Hospital Course: this is a 63-year-old male presented to the hospital on 12/08/2023 with complaints of cellulitis. Workup in the hospital included a right knee x-ray which showed right [id number] amputation was smooth osteotome a margins with no cortical erosion or osteomyelitis. CTA of the right lower extremity shown m ultiple nonspecific it loculated fluid collections along the anterior medial aspect of the proximal lower leg however due to the nature of the collections it would be limited effectiveness of attempting to drain it, edema the right lower extremity at and below the knee. Initial white blood cell count 13.5, hemoglobin 12.4, ESR 66, sodium 133, hemoglobin A1c 6.0, lactic acid was normal at 1.1, C reactive protein 28.2. Blood cultures were obtained and were negative on final read. Wound culture showed Staphylococcus aureus on final read. Patient was initially started on vancomycin, Keflex, clindamycin and then transition to Ancef once culture read was back. Patient did have a mild reaction to the Ancef and developed a rash that he described as itchy. Benadryl was given. He will be started on Bactrim for another 5 days duration and will need to follow up with his primary care physician in 1 week. He will also need to get a potassium level drawn in about 3 days. He is stable for discharge at this time. final diagnosis: cellulitis Status at Discharge Cognitive/behavioral status at discharge: Alert and oriented x3 Functional status at discharge: independent ambulation Overall status at discharge: patient is progressing back to baseline Time Spent with Patient Time attestation: Total time spent providing and/or coordinating discharge services: Time spent: Greater than 30 minutes Exam Narrative: General: In no acute distress, well nourished Head: atraumatic, no encephalopathy Eyes: EOMI, PERRLA, sclera clear ENT: moist mucous membranes, nasal passages clear Neck: supple, no JVD, no adenopathy, trachea midline Cardiac: Normal S1 and S2. RRR. No murmur, gallops or friction rubs, peripheral pulses intact. Respiratory: Lungs clear to auscultation, no adventitious lung sounds, currently on room air Gastrointestinal: soft, non-distended, non-tender, normoactive bowel sounds. : voiding without difficulty. Extremities:Right BKA Skin: wound proximal right BKA stump, oozing scant amount of purulent drainage, pink and warm Neuro: Alert and oriented x4, cranial nerves intact, no neuro deficits. Psych: normal mood, normal affect, interactive DS: Data Data Completed and Pending Completed studies during hospitalization: lower extremity CT Pending studies at discharge: none Labs on day of discharge: Labs from last 24 hours 12/14/23 12/14/23 12/13/23 07:47 06:05 21:08 WBC 8.1 RBC 4.20 L Hgb 11.8 L Hct 36.9 L MCV 87.9 MCH 28.1 MCHC 32.0 RDW 14.6 H Plt Count 257 MPV 9.0 Immature Gran % (Auto) 8.7 H Neut % (Auto) 64.0 Lymph % (Auto) 16.1 L [place] % (Auto) 8.3 Eos % (Auto) 2.2 Baso % (Auto) 0.7 Lymph # (Auto) 1.30 [place] # (Auto) 0.7 H Eos # (Auto) 0.2 Baso # (Auto) 0.1 Abs Immat Gran (auto) 0.70 H Absolute Neuts (auto) 5.1 Absolute Nucleated RBC 0.000 Nucleated RBC % 0.0 Sodium 140 Potassium 4.5 Chloride 108 H Carbon Dioxide 20 L Anion Gap 12 BUN 23 H Creatinine 0.80 Estim Creat Clear Calc 109 Estimated GFR > 60 Glucose 109 POC Capillary Glucose 105 164 H Calcium 8.8 Magnesium 2.2 Total Bilirubin 0.2 AST 20 ALT 23 Alkaline Phosphatase 60 Total Protein 7.0 Albumin 3.7 12/13/23 12/13/23 17:02 11:35 WBC RBC Hgb Hct MCV MCH MCHC RDW Plt Count MPV Immature Gran % (Auto) Neut % (Auto) Lymph % (Auto) [place] % (Auto) Eos % (Auto) Baso % (Auto) Lymph # (Auto) [place] # (Auto) Eos # (Auto) Baso # (Auto) Abs Immat Gran (auto) Absolute Neuts (auto) Absolute Nucleated RBC Nucleated RBC % Sodium Potassium Chloride Carbon Dioxide Anion Gap BUN Creatinine Estim Creat Clear Calc Estimated GFR Glucose POC Capillary Glucose 112 H 94 Calcium Magnesium Total Bilirubin AST ALT Alkaline Phosphatase Total Protein Albumin Procedures/Treatments: none Discharge Plan Discharge Attending physician on discharge: Connor Jaffe Consulting providers: Mary Thomas Discharging Clinician: Mary Thomas Anticipated Discharge Date/Time: 12/14/23 09:18 Patient Disposition: Home, Self-Care Activity: may shower and as tolerated Diet: diabetic Discharge Instructions: * initial your antibiotics as directed even if your feeling better * Obtain up potassium level in 3 days if elevated you can go ahead and stop antibiotics * follow-up with primary care physician in 1 week. * Use Benadryl for your rash, make note that you have allergy to Ancef we listed this as in allergy in your medical record here at the hospital. Patient Instructions: Antibiotic Form Patient Language: Citizen Of [place] Stand Alone Forms: General Discharge Information Follow-up/Referrals: Tong Mock MD [Primary Care Provider] - 1 Week Discharge Medications: New sulfamethoxazole-trimethoprim 800-160 mg Tablet 1 tab PO Q12HR Qty: 10 0RF Continued acetaminophen 500 mg capsule 1,500 mg PO Q6H PRN (Reason: Pain (Scale Score 4-6)) loratadine 10 mg tablet,disintegrating 10 mg PO DAILY aspirin [Adult Aspirin Regimen] 81 mg tablet,delayed release (DR/EC) 81 mg PO DAILY Jardiance 10 mg tablet 10 mg PO DAILY Qty: 90 3RF (DME) blood-glucose meter Kit See Rx Instructions .Route Qty: 1 0RF Rx Instructions: As directed ibuprofen 200 mg Tablet 600 mg PO Q6H PRN (Reason: Pain (Scale Score 4-6)) tamsulosin 0.4 mg capsule 0.4 mg PO DAILY Qty: 90 3RF atorvastatin [Lipitor] 10 mg tablet 10 mg PO QHS Qty: 90 1RF metformin 500 mg tablet extended release 24 hr 500 mg PO BID Qty: 180 1RF Rx Instructions: with meals lisinopril 10 mg tablet 10 mg PO DAILY Qty: 90 2RF sertraline 100 mg tablet 100 mg PO DAILY Qty: 90 1RF spironolactone 50 mg tablet 50 mg PO BID Qty: 180 1RF Discontinued cephalexin 500 mg capsule 500 mg PO Q8H Qty: 21 1RF Other Ambulatory Orders: Potassium (Routine) Timeframe: 3 Days Location: Determined by Patient Ordered By: Mary Thomas Date of admission: 12/08/23 20:50 Primary Care Provider: Tong Mock Admitting Provider: Asael Morgan V. Attending physician on admission: Mai Rivas Condition: Stable Hospitalist MIPS Heart Failure (Exclusion) Patient has history of Heart Transplant or Left Ventricular Assistive Device?: No IF YES, STOP HERE Heart Failure (Qualifier) Patient has current or prior documentation of LVEF less than or equal to 40%, or mod/servere depressed LVSF?: No IF NO, STOP HERE
[2023-12-14 11:54] LABS: Glucose Point of Care 87 mg/dl (65-105)
[2023-12-14] MEDS: SULFAMETHOXAZOLE/TRIMETHOPRIM 800/160 MG DS TABLET 1 TAB PO (12:34)
== END 2023-12-14 12:40 | disposition home or self-care (01) | DRG 565 ==
LOC: ANHED 20:56 → ANH2MED 21:05
PROVIDERS: Nurse Practitioner Adult Health; Admitting Provider Internal Medicine; Emergency Provider Emergency Medicine; PCP Family Medicine; Visit Provider Nurse Practitioner Acute Care
DX: T87.43 Infection of amputation stump, right lower extremity (principal); L03.115 Cellulitis of right lower limb; I10 Essential (primary) hypertension; L27.1 Localized skin eruption due to drugs and medicaments taken internally; T36.1X5A Adverse effect of cephalosporins and other beta-lactam antibiotics, initial encounter; E11.42 Type 2 diabetes mellitus with diabetic polyneuropathy; E78.2 Mixed hyperlipidemia; N40.0 Benign prostatic hyperplasia without lower urinary tract symptoms; B95.61 Methicillin susceptible Staphylococcus aureus infection as the cause of diseases classified elsewhere; Z89.511 Acquired absence of right leg below knee; Z79.82 Long term (current) use of aspirin
CPT/HCPCS: 36415; 73560; 73701; 80048; 80053; 80202; 82565; 82948; 83036; 83605; 83735; 85025; 85652; 86140; 87040; 87070; 87181; 87205; 99285; A9270; J0690; J0692; J2270; J2405; J3370; Q9967

== ENCOUNTER 2023-12-17 08:11 | Outpatient (CLI) | payer OTHER, SELFPAY ==
[2023-12-17 14:42] LABS: Hemoglobin A1C 6.2 % (<5.7)
[2023-12-17 14:58] LABS: Alanine Aminotransferase 31 U/L (6-50); Albumin Level 4.5 g/dL (3.5-5.1); Alkaline Phosphatase 58 U/L (38-126); Anion Gap 16 mmol/L (4-12); Aspartate Amino Transferase 68 U/L (17-59); Bilirubin,Total 0.5 mg/dL (0.2-1.3); Blood Urea Nitrogen 23 mg/dL (9-20); Calcium 9.6 mg/dL (8.4-10.2); Carbon Dioxide 21 mmol/L (22-30); Chloride 102 mmol/L (98-107); Cholesterol 157 mg/dL (0-200); Estimated Glomerular Filt Rate > 60; Glucose 87 mg/dL (65-110); HDL Direct 30 mg/dL; Sodium 139 mmol/L (137-145); Triglycerides 307 mg/dL (<150)
[2023-12-17 15:05] LABS: Creatinine Urine 98.3 mg/dL
[2023-12-17 15:07] LABS: MALB Creatinine Ratio 7.9 mg/g (0-30); Microalbumin Urine Random 7.8 mg/L (0-16.7)
[2023-12-17 15:11] LABS: LDL Cholesterol Direct 63 mg/dL
== END 2023-12-17 08:12 | disposition home or self-care (01) ==
LOC: ANHGOSHLAB 08:13
PROVIDERS: PCP Family Medicine; Visit Provider Family Medicine
DX: E11.9 Type 2 diabetes mellitus without complications (principal); L03.115 Cellulitis of right lower limb
CPT/HCPCS: 36415; 80053; 80061; 82043; 83036

== ENCOUNTER 2024-09-22 07:51 | Outpatient (CLI) | payer OTHER, SELFPAY ==
--- OUTSIDE RECORDS SUMMARY | 2024-09-22 07:53 | XMS_ITS | Clinical Summary ---
Author Organization [facility] Address [address] [place] [address] Care Team Providers Care Cad Application Support Specialist Name Role Phone Tong Mock MD Primary Care Provider [phone] [phone] Allergies No known active allergies Medications gabapentin (NEURONTIN) 600 mg tablet Take 1 tablet (600 mg total) by mouth every 8 (eight) hours 4 Active tamsulosin (FLOMAX) 0.4 mg extended release capsule Take 1 capsule (0.4 mg total) by mouth daily with dinner 4 Active aspirin 81 mg chewable tablet Take 1 tablet (81 mg total) by mouth daily 4 Active atorvastatin (LIPITOR) 10 mg tablet Take 1 tablet (10 mg total) by mouth nightly 3 Active lisinopriL (PRINIVIL,ZESTRI L) 10 mg tablet Take 1 tablet (10 mg total) by mouth daily 4 Active metFORMIN XR (GLUCOPHAGE XR) 500 mg 24 hr tablet Take 1 tablet (500 mg total) by mouth 4 Active sertraline (ZOLOFT) 100 mg tablet Take 1 tablet (100 mg total) by mouth daily 4 Active spironolactone (ALDACTONE) 50 mg tablet Take 1 tablet (50 mg total) by mouth 2 (two) times a day 4 Active Dexcom G6 Sensor device as directed 4 Active Dexcom G6 Transmitter device as directed 4 Active Active Problems Problem Noted Date Diagnosed Date Acute hematogenous osteomyelitis, right tibia an d fibula 02/13/2023 Overview (03/15/2023): The patient is a 62 y.o. male who is here for post hospital follow up of RLE osteomyelitis. He had a 3.5 foot fall off a retaining wall around [facility]. He sought care at a local urgent care when his leg pain progressed. Imaging there showed a pilon fracture. He was referred to a local orthopedic surgeon and conservative management was elected around mid-January. Around , he noted worsening fatigue and poor appetite which they attributed to food poisoning. However, leg pain continued to worsen. They noted a small red spot on his leg (which was observed earlier and thought to be from rubbing of his leg and the cast) had started having significant purulent drainage. He presented to [facility], where a CT showed significant pilon fracture with 3cm fracture gap and 3.3cm fluid collection, diffuse soft tissue swelling with fluid and gas. He was transferred to [facility] and underwent R BKA 02/12. OR note describes significant purulent material. Cultures showed MSSA. He was started on vancomycin and cefepime in hospital and then changed to IV Cefazolin once susceptibilities were back. He has continued with it without issues. Direct Specimen Exam Stain: Abundant polymorphonuclear leukocytes seen. Abundant Gram Positive Cocci Report . (.) Final Report: Moderate Staphylococcus aureus Methicillin susceptible (MSSA) by penicillin binding protein 2a (PBP2a) testing. Organism STAPHYLOCOCCUS AUREUS Resulting Agency [facility] Susceptibility Staphylococcus aureus (PAOLA) INTERPRETATION Cefazolin Susceptible Ceftriaxone Susceptible Clindamycin Susceptible Doxycycline Susceptible Erythromycin Susceptible Linezolid Susceptible Oxacillin Susceptible Trimethoprim with Sulfamethoxazole Susceptible Vancomycin Susceptible Diagnosis: MSSA infected right pilon fracture with secondary bloodstream infection Retained Infected Hardware (Yes/No/Unclear): No Location: N/A Site of Infection(s): R. leg Organism(s): MSSA Antibiotics Start Date: 02/12/23- date of R. BKA PMD: [facility] Infectious Disease Team: Orthopedic Infectious Diseases Infectious Disease Attending: Ofelia Herron Medication Recommendations: Drug(s): Cefazolin 2 grams IV every 8 hours Duration 4 weeks to be followed Cefadroxil 1 gram by mouth every 12 hours Duration 2 weeks for total of 6 weeks of antibiotics Firm Stop (Yes/No): Yes Anticipated Stop Date (note, the following date does not imply an order to stop on that date): Stop date for IV cefazolin is firm stop- 4 weeks (03/12/23). Plan to start PO cefadroxil on 03/13/23 for an additional 2 weeks. Labs/Frequency to be Monitored: CBC w/ diff once a week, CMP once a week, ESR/CRP 3 weeks after starting antibiotics, and ESR/CRP 6 weeks after starting antibiotics Plan is to treat MSSA infected R Pilon fx with bloodstream infection s/p BKA with 6 weeks of antibiotics. Initial plan was to treat with 4 weeks (02/12/23-03/12/23) of IV cefazolin then transition to PO cefadroxil to complete 6 weeks of antibiotic treatment to cover possible residual osteomyelitis. Today he continues to be on IV Cefazolin, hence will finish out today's course and then transition to orals from tomorrow. PLAN - Finish the doses of Cefazolin remaining at home (patient mentions two more doses) and transition to oral Cefadroxil 500 mg BID. I have ordered 14 days of Cefadroxil. - PICC line to be removed after last dose of IV Cefazolin - continue oral meds to finish 6 weeks course - wound care - follow with ortho and wound care - Labs from 03/12 reviewed and all normal at this time except for slightly elevated BUN. Normal electrolytes, liver and kidney function. Assessment & Plan (02/17/2023 1:49 PM MASONRY SUPERVISOR): Mk Kaba is a 62 y.o. male with a history of a right pilon fracture in December which was treated non surgically, who presented to an outside hospital with 4 days of feeling unwell. Patient was subsequently found to have MSSA bloodstream infection and infection of the right pilon fracture. 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 Herzog. Intraoperatively on 02/13, tissue and bone looked healthy, however cultures from that procedure are again positive for MSSA. Given this will need to treat for a prolonged course of antibiotic therapy. Patient was also bacteremic with MSSA on admission. Most recent blood cultures from 02/13 remain NGTD. TTE on 02/17 showed no vegetations. Recommendations: - Continue cefazolin 2g IV q8 hours - Weekly CMP and CBC with differential while on cefazolin - ID is formally signing off but will continue to follow patient peripherally while in house. Recommending to treat MSSA infected R Pilon fx with bloodstream infection s/p BKA with 6 weeks of antibiotics. Plan to treat with 4 weeks (02/12/23- 03/12/23) of IV cefazolin then transition to PO cefadroxil to complete 6 weeks of antibiotic treatment. Please see sign off note for complete recommendations. Cellulitis 02/11/2023 Closed displaced pilon fracture of right tibia 1 04/14/2022 Surgical History Surgery Date Site/Laterality Comments NO PAST SURGERIES Medical History Medical History Date Comments Diabetes mellitus (HCC) Hypertension Neuropathy Family History Medical History Relation Name Comments No Known Problems Brother No Known Problems Daughter No Known Problems Father No Known Problems Father's Brother No Known Problems Father's Sister No Known Problems Maternal Grandfather No Known Problems Maternal Grandmother No Known Problems Mother No Known Problems Mother's Brother No Known Problems Mother's Sister No Known Problems Other No Known Problems Paternal Grandfather No Known Problems Paternal Grandmother No Known Problems Sister No Known Problems Son Malig Hyperthermia Neg Hx Pseudochol deficiency Neg Hx Relation Name Status Comments Brother Daughter Father Father's Brother Father's Sister Maternal Grandfather Maternal Grandmother Mother Mother's Brother Mother's Sister Other Paternal Grandfather Paternal Grandmother Sister Son Social History Tobacco Use Types Packs/Day Years Used Date Smoking Tobacco: Never Smokeless Tobacco: Never Personal Safety Answer Date Recorded Have you ever been in or are you currently in a harmful physical or emotional relationship or is someone making you feel afraid or unsafe? Denies 02/12/2023 Sex and Gender Information Value Date Recorded Sex Assigned at Not on file Legal Sex Male 1:37 PM MASONRY SUPERVISOR Gender Identity Male 02/18/2023 5:57 PM MASONRY SUPERVISOR Sexual Orientation Not on file Obstetrics History Last Filed Vital Signs Vital Sign Reading Time Taken Comments Blood Pressure 136/81 03/15/2023 10:38 AM MASONRY SUPERVISOR Pulse 96 03/15/2023 10:38 AM MASONRY SUPERVISOR Temperature 36.8 C (98.3 F) 03/15/2023 10:38 AM MASONRY SUPERVISOR Respiratory Rate 20 02/18/2023 3:00 PM MASONRY SUPERVISOR Oxygen Saturation 97% 02/18/2023 3:00 PM MASONRY SUPERVISOR Inhaled Oxygen Concentration - - Weight 142 kg (313 lb 0.9 oz) 02/11/2023 8:13 PM MASONRY SUPERVISOR Height 188 cm (6' 2.02) 03/15/2023 10:38 AM MASONRY SUPERVISOR Body Mass Index 40.19 02/11/2023 8:00 PM MASONRY SUPERVISOR Plan of Treatment Health Maintenance Due Date Last Done Comments Colon Cancer Screening-Colonoscopy 1960 Depression Screening 1960 Hepatitis C Screening 1959 DTaP/Tdap/Td Vaccine (1 - Tdap) 04/27/1970 Hepatitis B Screening 04/27/1977 Pneumococcal vaccine 65+ (1 of 1 - PCV) 04/27/2009 Zoster Vaccine (1 of 2) 04/27/2009 Fall Risk Assessment 02/19/2024 02/18/2023 Abdominal Aortic Aneurysm (AAA) Screen 04/27/2024 Well Visit 65+ 04/27/2024 Influenza Vaccine (#1) 2024 Prostate Cancer Screening-PSA 02/15/2025 02/15/2023 Procedures Procedure Name Priority Date/Time Associated Diagnosis Comments PSA SCREEN Routine 02/15/2023 9:22 PM MASONRY SUPERVISOR from Last 3 Months or Most Recently Relevant to Health Maintenance Results * PSA screen (02/15/2023 9:22 PM MASONRY SUPERVISOR) PSA-Total 0.48 <=5.40 ng/mL [facility] Comment: Interpretive Data AGE SEX REFERENCE INTERVAL 0 minutes-150 years Female None 0 minutes-49 years Male None 50-59 years Male 0-3.90 60-69 years Male 0-5.40 70-79 years Male 0-6.20 80-150 years Male 0-6.20 The [employer] PSA Total assay procedure was used. Results from different manufacturers or methods may not be comparable. Serial testing should be performed using the same method. Current interpretive data last revised 21. Blood 02/15/2023 9:22 PM MASONRY SUPERVISOR 02/15/2023 9:40 PM MASONRY SUPERVISOR us Moe Mcmillan MD LAB BLOOD ORDERABLES Fin al Result [facility] Department [place] [address] from Last 3 Months or Most Recently Relevant to Health Maintenance [place] [phone] Advance Directives For more information, please contact: [phone] * Full Code (Latest Code Status on File) Date Activated Date Inactivated Comments 02/11/2023 6:41 PM 02/18/2023 7:22 PM Care Teams Cad Application Support Specialist Relationship Specialty Start Date End Date Tong Mock MD [address] [place] [address] DR STRAUSS [address] [place] [id number] PCP - General Family Medicine 03/25/23
--- OUTSIDE RECORDS SUMMARY | 2024-09-22 07:53 | XMS_ITS | Clinical Summary ---
Author Organization [facility] Address [address] [place] [address] Care Team Providers Care Furniture Delivery Driver Name Role Phone Unavailable Primary Care Provider Unavailabl e Source Comments [facility],non-owned Affiliates and Associated Physician Practices is amultiple site organization consisting of ambulatory clinics and hospital sitesin [place], [place], [place] and [place]. This disclosure is being madepursuant to the Care Everywhere program and may not contain all information available regarding this patient. Last updated 17.[facility] Allergies No known active allergies Medications * Be aware that medications may not be up to date on this document. Alwaysverify current medications with the patient. Nebivolol HCl (BYSTOLIC PO) Active LISINOPRIL PO Active Sertraline HCl (ZOLOFT PO) Active Social History Tobacco Use Types Packs/Day Years Used Date Smoking Tobacco: Never Smokeless Tobacco: Never Sex and Gender Information Value Date Recorded Sex Assigned at Male 01/29/2020 7:44 AM NYLON MACHINE OPERATOR Legal Sex Male 9:32 AM CDT Gender Identity Male 01/29/2020 7:44 AM NYLON MACHINE OPERATOR Sexual Orientation Straight 01/29/2020 7: 44 AM NYLON MACHINE OPERATOR Last Filed Vital Signs Vital Sign Reading Time Taken Comments Blood Pressure 140/85 05/11/2019 9:42 AM CDT Pulse 88 05/11/2019 9:42 AM CDT Temperature 37.2 C (99 F) 05/11/2019 9:42 AM CDT Respiratory Rate 20 05/11/2019 9:42 AM CDT Oxygen Saturation 97% 05/11/2019 9:42 AM CDT Inhaled Oxygen Concentration - - Weight 127 kg (280 lb) 05/11/2019 9:42 AM CDT Height 186.7 cm (6' 1.5) 05/11/2019 9:42 AM CDT Body Mass Index 36.44 05/11/2019 9:42 AM CDT Plan of Treatment Health Maintenance Due Date Last Done Comments COLOGUARD (AGES 45-75) - COL ON CA SCREENING 1959 COLON MONITORING 1959 COLONOSCOPY - COLON CA SCREENING 1959 CT COLONOGRAPHY - COLON CA SCREENING 1959 Colorectal Cancer Screening 1959 FIT - COLON CA SCREENING 1959 FLEX SIG - COLON CA SCREENING 1959 LIPID TESTING 1959 HIV SCREENING 04/27/1974 HEPATITIS C SCREENING 04/23/1977 DTAP/TDAP/TD VACCINES (1 - Tdap) 04/27/1978 PNEUMOCOCCAL VACCINE 50+ (1 of 1 - PCV) 04/27/2009 ZOSTER VACCINE (1 of 2) 04/27/2009 SCREENING FOR DIABETES 05/11/2019 COVID-19 VACCINE ( - 2023-2 5 season) 2023 DEPRESSION SCREENING 02/16/2024 INFLUENZA VACCINE (#1) 2024 Respiratory Syncytial Virus (RSV) Vaccine Pt: or over 60 yrs (1 - 1-dose 75+ series) 04/27/2034 HEPATITIS B VACCINE Aged Out No longe r eligible based on patient's age to complete this topic HIB VACCINE Aged Out No longer eligi ble based on patient's age to complete this topic HPV VACCINE Aged Out No longer eligi ble based on patient's age to complete this topic MENINGOCOCCAL (Group B) VACC INE SHARED DECISION-MAKING Aged Out No longer eligibl e based on patient's age to complete this topic MENINGOCOCCAL GROUPS A/C/Y/W VACCINE Aged Out No longer eligible b ased on patient's age to complete this topic Insurance [employer]
[2024-09-22 13:17] LABS: Alanine Aminotransferase 26 U/L (6-50); Albumin Level 4.8 g/dL (3.5-5.1); Alkaline Phosphatase 59 U/L (38-126); Anion Gap 13 mmol/L (4-12); Aspartate Amino Transferase 40 U/L (17-59); Bilirubin,Total 0.5 mg/dL (0.2-1.3); Blood Urea Nitrogen 42 mg/dL (9-20); Calcium 9.8 mg/dL (8.4-10.2); Carbon Dioxide 19 mmol/L (22-30); Chloride 101 mmol/L (98-107); Cholesterol 251 mg/dL (0-200); Estimated Glomerular Filt Rate 60; Glucose 121 mg/dL (65-110); HDL Direct 40 mg/dL; Potassium 5.9 mmol/L (3.4-5.0); Sodium 133 mmol/L (137-145); Total Protein 7.8 g/dL (6.3-8.2)
[2024-09-22 14:02] LABS: Hemoglobin A1C 6.3 % (<5.7)
[2024-09-22 15:58] LABS: Triglycerides 669 mg/dL (<150)
== END 2024-09-22 07:52 | disposition home or self-care (01) ==
LOC: ANHGOSHLAB 07:51
PROVIDERS: PCP Family Medicine; Visit Provider Family Medicine
DX: E11.9 Type 2 diabetes mellitus without complications (principal)
CPT/HCPCS: 36415; 80053; 80061; 83036

== ENCOUNTER 2024-09-27 07:50 | Outpatient (CLI) | payer OTHER, SELFPAY ==
--- OUTSIDE RECORDS SUMMARY | 2024-09-27 07:55 | XMS_ITS | Clinical Summary ---
Author Organization [facility] Address [address] [place] [address] Care Team Providers Care Medical Cost Consultant Name Role Phone Tong Mock MD Primary Care Provider [phone] Allergies No known active allergies Medications gabapentin [...] foot fall off a retaining wall around [facility]2022. He sought care at a local [...] having significant purulent drainage. He presented to [facility], where a CT showed significant pilon fracture with 3cm fracture gap and 3.3cm fluid collection, diffuse soft tissue swelling with fluid and gas. 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 OR [...] (PBP2a) testing. Organism STAPHYLOCOCCUS AUREUS Resulting Agency [facility] Susceptibility Staphylococcus aureus (PAOLA) INTERPRETATION Cefazolin [...] function. Assessment & Plan (02/17/2023 1:49 PM WIRE MESH GATE ASSEMBLER): Mk Kaba is a 62 y.o. male [...] on file Legal Sex Male 1:37 PM WIRE MESH GATE ASSEMBLER Gender Identity Male 02/18/2023 5:57 PM WIRE MESH GATE ASSEMBLER Sexual Orientation Not on file Obstetrics History Last Filed Vital Signs Vital Sign Reading Time Taken Comments Blood Pressure 136/81 03/15/2023 10:38 AM WIRE MESH GATE ASSEMBLER Pulse 96 03/15/2023 10:38 AM WIRE MESH GATE ASSEMBLER Temperature 36.8 C (98.3 F) 03/15/2023 10:38 AM WIRE MESH GATE ASSEMBLER Respiratory Rate 20 02/18/2023 3:00 PM WIRE MESH GATE ASSEMBLER Oxygen Saturation 97% 02/18/2023 3:00 PM WIRE MESH GATE ASSEMBLER Inhaled Oxygen Concentration - - Weight 142 kg (313 lb 0.9 oz) 02/11/2023 8:13 PM WIRE MESH GATE ASSEMBLER Height 188 cm (6' 2.02) 03/15/2023 10:38 AM WIRE MESH GATE ASSEMBLER Body Mass Index 40.19 02/11/2023 8:00 PM WIRE MESH GATE ASSEMBLER Plan of Treatment Health Maintenance Due Date [...] Comments PSA SCREEN Routine 02/15/2023 9:22 PM WIRE MESH GATE ASSEMBLER from Last 3 Months or Most Recently Relevant to Health Maintenance Results * PSA screen (02/15/2023 9:22 PM WIRE MESH GATE ASSEMBLER) PSA-Total 0.48 <=5.40 ng/mL [facility] Comment: Interpretive Data AGE SEX REFERENCE [...] last revised 21. Blood 02/15/2023 9:22 PM WIRE MESH GATE ASSEMBLER 02/15/2023 9:40 PM WIRE MESH GATE ASSEMBLER us Moe Mcmillan MD LAB BLOOD ORDERABLES Fin al Result [facility] Department [place] [address] from Last 3 Months or Most Recently Relevant to Health Maintenance [place] [address] [place] [phone] Advance Directives For more information, please contact: [phone] * Full Code (Latest Code Status on File) Date Activated Date Inactivated Comments 02/11/2023 6:41 PM 02/18/2023 7:22 PM Care Teams Medical Cost Consultant Relationship Specialty Start Date End Date Tong Mock MD [address] [place] [address] DR STRAUSS [address] [place] [id number] PCP - General Family Medicine 03/25/23
--- OUTSIDE RECORDS SUMMARY | 2024-09-27 07:55 | XMS_ITS | Clinical Summary ---
Author Organization [facility] Address [address] [place] [address] Care Team Providers Care Needle Loom Weaver Name Role Phone Unavailable Primary Care Provider Unavailabl e Source Comments [facility],non-owned Affiliates and Associated Physician Practices is amultiple site organization consisting of ambulatory clinics and hospital sitesin [place], [place], [place] and [place]. This disclosure is being madepursuant to the Care Everywhere program and may not contain all information available regarding this patient. Last updated 17.[facility] Allergies No known active allergies Medications * [...] Sex Assigned at Male 01/29/2020 7:44 AM CURB MACHINE OPERATOR Legal Sex Male 9:32 AM CDT Gender Identity Male 01/29/2020 7:44 AM CURB MACHINE OPERATOR Sexual Orientation Straight 01/29/2020 7: 44 AM CURB MACHINE OPERATOR Last Filed Vital Signs Vital [...] patient's age to complete this topic Insurance [employer] [facility] Address: [facility] [id number] [place] [id number]
[2024-09-27 13:44] LABS: Anion Gap 14 mmol/L (4-12); Blood Urea Nitrogen 42 mg/dL (9-20); Calcium 10.0 mg/dL (8.4-10.2); Carbon Dioxide 18 mmol/L (22-30); Chloride 102 mmol/L (98-107); Estimated Glomerular Filt Rate 55; Glucose 118 mg/dL (65-110); Potassium 6.1 mmol/L (3.4-5.0); Sodium 134 mmol/L (137-145)
== END 2024-09-27 07:51 | disposition home or self-care (01) ==
LOC: ANHGOSHLAB 07:51
PROVIDERS: PCP Family Medicine; Visit Provider Family Medicine
DX: E87.5 Hyperkalemia (principal)
CPT/HCPCS: 36415; 80048

== ENCOUNTER 2024-10-09 07:58 | Outpatient (CLI) | payer OTHER, SELFPAY ==
--- OUTSIDE RECORDS SUMMARY | 2024-10-09 08:04 | XMS_ITS | Clinical Summary ---
Author Organization [facility] Address [address] [place] [address] Care Team Providers Care Grounding Engineer Name Role Phone Tong Mock MD Primary Care Provider [phone] Allergies No known active allergies Medications gabapentin [...] foot fall off a retaining wall around [facility]20[facility]. He sought care at a local [...] having significant purulent drainage. He presented to [facility], where a CT showed significant pilon fracture with 3cm fracture gap and 3.3cm fluid collection, diffuse soft tissue swelling with fluid and gas. 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 OR note [...] testing. Organism STAPHYLOCOCCUS AUREUS Resulting Agency [facility] Susceptibility Staphylococcus aureus (PAOLA) INTERPRETATION Cefazolin Susceptible [...] function. Assessment & Plan (02/17/2023 1:49 PM LOOP DRIER OPERATOR): Mk Kaba is a 62 y.o. male [...] on file Legal Sex Male 1:37 PM LOOP DRIER OPERATOR Gender Identity Male 02/18/2023 5:57 PM LOOP DRIER OPERATOR Sexual Orientation Not on file Obstetrics History Last Filed Vital Signs Vital Sign Reading Time Taken Comments Blood Pressure 136/81 03/15/2023 10:38 AM LOOP DRIER OPERATOR Pulse 96 03/15/2023 10:38 AM LOOP DRIER OPERATOR Temperature 36.8 C (98.3 F) 03/15/2023 10:38 AM LOOP DRIER OPERATOR Respiratory Rate 20 02/18/2023 3:00 PM LOOP DRIER OPERATOR Oxygen Saturation 97% 02/18/2023 3:00 PM LOOP DRIER OPERATOR Inhaled Oxygen Concentration - - Weight 142 kg (313 lb 0.9 oz) 02/11/2023 8:13 PM LOOP DRIER OPERATOR Height 188 cm (6' 2.02) 03/15/2023 10:38 AM LOOP DRIER OPERATOR Body Mass Index 40.19 02/11/2023 8:00 PM LOOP DRIER OPERATOR Plan of Treatment Health Maintenance Due Date [...] Comments PSA SCREEN Routine 02/15/2023 9:22 PM LOOP DRIER OPERATOR from Last 3 Months or Most Recently Relevant to Health Maintenance Results * PSA screen (02/15/2023 9:22 PM LOOP DRIER OPERATOR) PSA-Total 0.48 <=5.40 ng/mL [facility] Comment: Interpretive Data AGE SEX REFERENCE INTERVAL [...] last revised 21. Blood 02/15/2023 9:22 PM LOOP DRIER OPERATOR 02/15/2023 9:40 PM LOOP DRIER OPERATOR us Moe Mcmillan MD LAB BLOOD ORDERABLES Fin al Result [facility] Department [place] [address] from Last 3 Months or Most Recently Relevant to Health Maintenance [place] [place] [phone] Advance Directives For more information, please contact: [phone] * Full Code (Latest Code Status on File) Date Activated Date Inactivated Comments 02/11/2023 6:41 PM 02/18/2023 7:22 PM Care Teams Grounding Engineer Relationship Specialty Start Date End Date Tong Mock MD [address] [place] [address] DR STRAUSS [address] [place] [id number] PCP - General Family Medicine 03/25/23
--- OUTSIDE RECORDS SUMMARY | 2024-10-09 08:04 | XMS_ITS | Clinical Summary ---
Author Organization [email or web address] Address [address] [place] [address] Care Team Providers Care Ticket Machine Operator Name Role Phone Unavailable Primary Care Provider Unavailabl e Source Comments [facility],non-owned Affiliates and Associated Physician Practices is amultiple site organization consisting of ambulatory clinics and hospital sitesin [place], [place], [place] and [place]. This disclosure is being madepursuant to the Care Everywhere program and may not contain all information available regarding this patient. Last updated 17.[email or web address] Allergies No known active allergies Medications * [...] Sex Assigned at Male 01/29/2020 7:44 AM CAREER DEVELOPMENT ENGINEER Legal Sex Male 9:32 AM CDT Gender Identity Male 01/29/2020 7:44 AM CAREER DEVELOPMENT ENGINEER Sexual Orientation Straight 01/29/2020 7: 44 AM CAREER DEVELOPMENT ENGINEER Last Filed Vital Signs Vital Sign Reading [...] patient's age to complete this topic Insurance [employer]
[2024-10-09 14:43] LABS: Hemoglobin A1C 5.8 % (<5.7)
[2024-10-09 15:01] LABS: MALB Creatinine Ratio 5.5 mg/g (0-30)
[2024-10-09 15:20] LABS: Alanine Aminotransferase 28 U/L (6-50); Albumin Level 4.2 g/dL (3.5-5.1); Alkaline Phosphatase 51 U/L (38-126); Anion Gap 9 mmol/L (4-12); Aspartate Amino Transferase 38 U/L (17-59); Bilirubin,Total 0.4 mg/dL (0.2-1.3); Blood Urea Nitrogen 25 mg/dL (9-20); Calcium 9.2 mg/dL (8.4-10.2); Carbon Dioxide 25 mmol/L (22-30); Chloride 104 mmol/L (98-107); Cholesterol 191 mg/dL (0-200); Estimated Glomerular Filt Rate > 60; Glucose 123 mg/dL (65-110); HDL Direct 37 mg/dL; Potassium 4.6 mmol/L (3.4-5.0); Sodium 138 mmol/L (137-145); Total Protein 7.0 g/dL (6.3-8.2); Triglycerides 385 mg/dL (<150)
[2024-10-09 15:56] LABS: Prostate Specific Antigen 0.4 ng/mL (< OR = 4.0)
== END 2024-10-09 07:59 | disposition home or self-care (01) ==
LOC: ANHGOSHLAB 07:59
PROVIDERS: PCP Family Medicine; Visit Provider Family Medicine
DX: E78.2 Mixed hyperlipidemia (principal); R73.03 Prediabetes; E87.1 Hypo-osmolality and hyponatremia; E87.5 Hyperkalemia; Z12.5 Encounter for screening for malignant neoplasm of prostate
CPT/HCPCS: 36415; 80053; 80061; 82043; 83036; 84153; G0103

== ENCOUNTER 2025-01-20 12:25 | Emergency (ER) | payer OTHER, SELFPAY ==
[2025-01-20 12:33] VITALS: BP 136/83; PULSE 85; RESP 16; TEMP 35.9; O2SAT 98
--- NOTE | 2025-01-20 12:33 | ED_ITS ---
HPI - Ear Problem General Chief complaint: Ear Stated complaint: Ear Pain Time Seen by Provider: 01/20/25 12:25 Source: patient Mode of arrival: ambulatory Limitations: no limitations History of Present Illness HPI Narrative: Patient is a 64-year-old male that presents with ear left ear pain for few days. Patient states it feels is clogged. Denies any congestion, sore throat, cough, fever, chills, nausea, vomiting, diarrhea. MD Complaint: ear pain Related Data Home Medications ?Medication ?Instructions ?Recorded ?Confirmed ?Last Taken ?Type acetaminophen 500 mg capsule 1,500 mg PO Q6H PRN Pain (Scale 06/10/23 01/20/25 Unknown History Score 4-6) aspirin 81 mg tablet,delayed 81 mg PO DAILY 06/10/23 1 03/23/24 Unknown History release (Adult Aspirin Regimen) loratadine 10 mg disintegrating 10 mg PO DAILY 4 01/20/25 Unknown History tablet Allergies Allergy/AdvReac Type Severity Reaction Status Date / Time cefazolin Allergy Intermediate Rash Verified 01/20/25 12:31 Review of Systems Review of Systems: All systems reviewed & are unremarkable except as noted in HPI and below Constitutional: Constitutional: Denies body ache(s), Denies chills, Denies fever(s), Denies headache(s) and Denies malaise Eyes: Eyes: Denies blurry vision, Denies eye discharge and Denies irritation ENT: Reports otalgia, Denies headache(s), Denies nasal congestion, Denies nasal discharge and Denies sore throat Cardiovascular: Cardiovascular: Denies chest pain, Denies edema, Denies palpitations and Denies dyspnea on exertion Respiratory: Respiratory: Denies cough and Denies dyspnea on exertion Gastrointestinal: Gastrointestinal: Denies abdominal pain, Denies diarrhea, Denies nausea and Denies vomiting Musculoskeletal: Musculoskeletal: Denies back pain, Denies arthralgias and Denies muscle weakness Integumentary/Breasts: Skin/Breast: Denies pruritus and Denies rash Neurologic: Denies headache(s) Psychiatric: Psychiatric: Reports no additional psychiatric complaints Endocrine: Endocrine: Denies palpitations PMFSH Past Medical History Medical History Amputation of right lower extremity below knee Pilon fracture of right tibia Closed right ankle fracture Toe ulcer, right Diarrhea Nausea & vomiting Erectile dysfunction Mixed hyperlipidemia HTN (hypertension), benign Prediabetes Hammertoe of right foot Right 4th toe Seasonal allergies Peripheral neuropathy, idiopathic Obesity Neuropathy Hypertension Family History Family History Father Family history of lymphoma, Onset Age: 35 Mother Hypertension Family history of hypercholesterolemia Social History Social History Smoking status: Never smoker Alcohol intake: never Substance use: never Substance use type: does not use Lack of Transportation: No Lack of Food: Never True Current Housing: I Have Housing Concerned About Future Housing: No Difficulty Paying Gas/Electric Bills: No Difficulty Paying for Meds: No Currently Unemployed: No Education: Master's Degree or Higher Difficulty w/ Childcare or Family Care: No Spiritual care concerns: No Comments At time of signature, agree with nursing past medical, surgical, social and family history. There is no relevant family history pertinent to the presenting complaint? Exam Const: General: cooperative, healthy appearing, no acute distress and well nourished Nutritional Appearance: well nourished Orien tation/consciousness: patient oriented x3 Limitations: no limitations HENMT: Head: normal to inspection, normocephalic and atraumatic Ears: hearing grossly normal bilaterally, TM's normal bilaterally, no periauricular adenopathy and Abnormal EAC present erythema on the left, edema on the left and EAC tenderness on the left Face/Nose/Sinus: Normal external nose present, Normal nares present, Normal nasal mucous membranes and turbinates present, No nasal discharge present, normal facial exam and sinuses nontender Face and sinus: normal facial exam and sinuses nontender Mouth: Yes Normal oral and palatal mucosa present, Yes lip normal, Yes tongue normal and Yes moist mucous membranes Throat: posterior oropharynx normal, tonsils normal and uvula midline Eyes: General: appearance normal, both eyes and all related structures Alignment and Position: alignment normal and position normal Eyelids: eyelids normal Pupils: Equal, round and reactive pupils present EOM: EOMs intact bilaterally Neck: Neck: normal visual inspection, full ROM, no lymphadenopathy and supple Chest: Chest palpation & inspection: normal inspection of the chest Resp: Effort & Inspection: normal respiratory effort and able to speak in complete sentences Auscultation: clear to auscultation bilaterally, no crackles, no rales, no rhonchi and no wheezes Cardio: Rate: regular rate Rhythm: regular rhythm Heart sounds: S1 normal heart sound present and S2 normal heart sound present Skin: General skin exam: normal color and no rashes or lesions noted Neuro: General: patient oriented x3 and moves all extremities Cranial nerves: Yes Equal, round and reactive pupils present Cognition (Neuro): normal cognition Speech: normal speech Gait exam (Neuro): Normal gait present Extrem: General: normal to inspection and full ROM Psych: Appearance: grossly normal and well kempt Mental Status: mental status grossly normal Speech and movement: Normal speech and movement present Course Course Emergency Course: Patient is aware of diagnosis, understands and agrees to treatment plan. Anticipatory guidance given. Patient agrees to follow-up as directed and is aware of reasons to seek care at the emergency department. Portions of this record may have been created with voice recognition software Level of Care: Express Care Visit MDM MDM Narrative Medical decision making narrative: Pt well hydrated appearing, in no respiratory distress, hemodynamically stable. Recommend supportive care. The patient is stable at time of discharge the cl inical impression was discussed and the patient was given the opportunity to ask questions, which were addressed as completely as possible given the information available at present. Anticipatory guidance and return to care precautions were discussed and the importance of primary care follow-up was stressed and encouraged. The patient voiced understanding of the plan, indications to return, and the need for follow-up. Exam findings show no acute concerns or changes Patient is appropriate for outpatient treatment and follow-up. Differential Diagnosis Differential Diagnosis: Differential diagnosis considered: otitis media, otitis externa, otitis effusion, foreign body, cerumen impaction, viral syndrome? Medical Records I have reviewed the following patient records and this information was taken into consideration when formulating the assessment and plan.: previous clinic visits Discharge Plan Discharge Clinical Impression: Otitis externa Patient Disposition: Home Condition: Stable Instructions: Michael's [facility] (ED) Additional Instructions: -Ear drops as directed for 7-10 days until the pain and swelling are gone. -When administer drug into the affected ear; make sure to lay down with the affected ear facing upward, message the ear canal to help the drops reach the medial end of the canal, then remain in that position for at least 5 minutes. -Avoid using cotton tipped applicator for ears cleaning -Avoid exposing swimming or exposing the affected ear to water during the treatment period Take or alternate tylenol or ibuprofen every 4 - 6 hours if needed for pain. Follow up with primary care provider if condition is not improving in 7 days or sooner if there is new concern. Patient Language: Kenyan Prescriptions: New ofloxacin 0.3 % drops 10 drp LEFT EAR ONCE 7 Days Qty: 10 0RF fluticasone propionate [Flonase Allergy Relief] 50 mcg/actuation spray,lady pension 1 spray intranasal DAILY Qty: 16 0RF Rx Instructions: administer into each nostril No Action acetaminophen 500 mg capsule 1,500 mg PO Q6H PRN (Reason: Pain (Scale Score 4-6)) loratadine 10 mg tablet,disintegrating 10 mg PO DAILY aspirin [Adult Aspirin Regimen] 81 mg tablet,delayed release (DR/EC) 81 mg PO DAILY (DME) blood-glucose meter Kit See Rx Instructions .Route Qty: 1 0RF Rx Instructions: As directed (DME) Prosthesis See Rx Instructions .Route .MEDSUPPLY Qty: 1 0RF Rx Instructions: right BKA spironolactone 50 mg tablet See Rx Instructions .ROUTE .COMPLEX Qty: 180 1RF Dose Instruction: Take 1 tablet by mouth twice daily Rx Instructions: Take 1 tablet by mouth twice daily furosemide [Lasix] 20 mg tablet 20 mg PO QAM Qty: 20 0RF lisinopril-hydrochlorothiazide 10-12.5 mg tablet 1 tablet PO DAILY Qty: 90 1RF sertraline 100 mg tablet See Rx Instructions .ROUTE .COMPLEX Qty: 90 1RF Dose Instruction: Take 1 tablet by mouth once daily Rx Instructions: Take 1 tablet by mouth once daily lisinopril 10 mg tablet See Rx Instructions .ROUTE .COMPLEX Qty: 90 1RF Dose Instruction: Take 1 tablet by mouth once daily Rx Instructions: Take 1 tablet by mouth once daily Jardiance 10 mg tablet See Rx Instructions .ROUTE .COMPLEX Qty: 90 1RF Dose Instruction: Take 1 tablet by mouth once daily Rx Instructions: Take 1 tablet by mouth once daily tamsulosin 0.4 mg capsule See Rx Instructions .ROUTE .COMPLEX Qty: 90 1RF Dose Instruction: Take 1 capsule by mouth once daily Rx Instructions: Take 1 capsule by mouth once daily metformin 500 mg tablet extended release 24 hr 500 mg PO BID Qty: 180 1RF Rx Instructions: with meals nystatin 100,000 unit/gram cream 1 applic topical TID Qty: 30 1RF atorvastatin [Lipitor] 10 mg tablet 10 mg PO QHS Qty: 90 1RF fluconazole 150 mg tablet 150 mg PO Q72H Qty: 2 0RF Follow-up/Referrals: Tong Mock MD [Primary Care Provider, Family Practice] - 3 Days Time of Disposition: 12:47
== END 2025-01-20 12:54 | disposition home or self-care (01) ==
PROVIDERS: Emergency Provider Nurse Practitioner Family; PCP Family Medicine
DX: H60.92 Unspecified otitis externa, left ear (principal); I10 Essential (primary) hypertension; E78.2 Mixed hyperlipidemia; R73.03 Prediabetes; G60.9 Hereditary and idiopathic neuropathy, unspecified; E66.9 Obesity, unspecified; Z68.36 Body mass index [BMI] 36.0-36.9, adult; Z89.511 Acquired absence of right leg below knee; Z79.82 Long term (current) use of aspirin
CPT/HCPCS: 99213; G0463